=== PATIENT | male | born 1935 | race Caucasian/White ===

== ENCOUNTER → 2017-10-07 14:58 | Outpatient (CLI) | payer MEDICARE, OTHER, SELFPAY ==
[2017-10-07 18:11] LABS: Anion Gap 9 (5-15); BUN 30 mg/dL (7-18); BUN/Creat Ratio 19.2 RATIO (10-20); Calcium,Total 9.5 mg/dL (8.5-10.1); Chloride 107 mmol/L (98-107); Creatinine, Serum 1.56 mg/dL (0.70-1.30); EST Glomerular Filtration Rate 46 mL/min (>60); Est Glom Filt Rate - Afr Amer 55 mL/min (>60); Free T3 2.2 pg/mL (2.18-3.98); Glucose 89 mg/dL (70-110); Potassium 4.1 mmol/L (3.5-5.1); Sodium Level 140 mmol/L (136-145); T4 Total, Thyroxin 7.4 ug/dL (4.5-12.1); Thyroid Stim Hormone (TSH) 1.52 uIU/mL (0.358-3.74)
== END ==
PROVIDERS: Family Provider Family Medicine; PCP Family Medicine; Visit Provider Family Medicine
DX: I10 Essential (primary) hypertension (principal); E03.9 Hypothyroidism, unspecified
CPT/HCPCS: 36415; 80048; 84436; 84443; 84481

== ENCOUNTER → 2017-11-21 12:14 | Outpatient (CLI) | payer MEDICARE, OTHER, SELFPAY ==
[2017-11-21 14:39] LABS: AST(SGOT) 27 U/L (15-37); Alanine Aminotransfer ALT/SGPT 34 U/L (16-61); Albumin, Serum 3.5 g/dL (3.2-5.0); Alkaline Phosphatase 69 U/L (45-117); Bilirubin, Direct 0.14 mg/dL (0.00-0.30); Cholesterol 126 mg/dL (200); Globulin 3.3 g/dL (2.2-4.2); High Density Lipoprotein 48 mg/dL; Protein, Total 6.8 g/dL (6.4-8.2); Triglycerides 77 mg/dL; Very Low Density Lipoprotein 15 mg/dL (5-40)
== END ==
PROVIDERS: Family Provider Family Medicine; PCP Family Medicine; Visit Provider Internal Medicine Cardiovascular Disease
DX: E78.00 Pure hypercholesterolemia, unspecified (principal)
CPT/HCPCS: 36415; 80061; 80076

== ENCOUNTER → 2018-02-07 10:43 | Outpatient (CLI) | payer MEDICARE, OTHER, SELFPAY ==
[2018-02-07 13:07] LABS: Anion Gap 7 (5-15); BUN 35 mg/dL (7-18); BUN/Creat Ratio 18.8 RATIO (10-20); Calcium,Total 9.7 mg/dL (8.5-10.1); Chloride 108 mmol/L (98-107); Creatinine, Serum 1.86 mg/dL (0.70-1.30); EST Glomerular Filtration Rate 37 mL/min (>60); Est Glom Filt Rate - Afr Amer 45 mL/min (>60); Glucose 131 mg/dL (74-106); Potassium 4.2 mmol/L (3.5-5.1); Sodium Level 141 mmol/L (136-145)
== END ==
PROVIDERS: Family Provider Family Medicine; PCP Family Medicine; Visit Provider Family Medicine
DX: I10 Essential (primary) hypertension (principal); R97.20 Elevated prostate specific antigen [PSA]
CPT/HCPCS: 36415; 80048; 84153

== ENCOUNTER → 2018-02-20 17:26 | Outpatient (CLI) | payer MEDICARE, OTHER, SELFPAY | PROVIDERS: Visit Provider Podiatrist | DX: L97.429 Non-pressure chronic ulcer of left heel and midfoot with unspecified severity (principal) | CPT/HCPCS: 87070; 87205 ==

== ENCOUNTER → 2018-05-27 08:22 | Outpatient (CLI) | payer MEDICARE, OTHER, SELFPAY ==
[2018-05-27 12:24] LABS: AST(SGOT) 29 U/L (15-37); Alanine Aminotransfer ALT/SGPT 32 U/L (16-61); Albumin, Serum 3.4 g/dL (3.2-5.0); Alkaline Phosphatase 68 U/L (45-117); Bilirubin, Direct 0.24 mg/dL (0.00-0.30); Cholesterol 128 mg/dL (200); Globulin 3.2 g/dL (2.2-4.2); High Density Lipoprotein 47 mg/dL; Protein, Total 6.6 g/dL (6.4-8.2); Triglycerides 69 mg/dL; Very Low Density Lipoprotein 14 mg/dL (5-40)
== END ==
PROVIDERS: Family Provider Family Medicine; PCP Family Medicine; Visit Provider Internal Medicine Cardiovascular Disease
DX: E78.5 Hyperlipidemia, unspecified (principal); Z79.899 Other long term (current) drug therapy
CPT/HCPCS: 36415; 80061; 80076

== ENCOUNTER → 2018-06-02 17:58 | Outpatient (CLI) | payer MEDICARE, OTHER, SELFPAY ==
--- NOTE | 2018-06-02 08:00 | PROSBIL_PTH ---
PATIENT: BENJAMIN MAS Jr. LOC: [facility] U#:[id number] AGE/SX: 89/M ROOM: RE06/02/[address]: Dr. Antwan Carlson MD : 1935 BED: DIS: SPEC #: [id number] RECD: 06/02/18 16:31 STATUS: MAURICIO MICHELLE #: [id number] MAGDA: 06/02/18 08:[address]: Antwan Carlson DEPT: SURGICAL PATHOLOGY RECD BY: Antonio Washington ENTERED: 06/04/18 09:15 SP TYPE: PROST BX KELLY DR: Dr. Ethan Tubbs MD Tissues: A - PROSTATE RIGHT B - PROSTATE RIGHT C - PROSTATE RIGHT D - PROSTATE LEFT E - PROSTATE LEFT F - PROSTATE LEFT Procedures: PROSTATE BX HEADER OPERATION: Prostate biopsy PRE-OP DIAGNOSIS: Elevated PSA TISSUE SUBMITTED: A - Right apex, B - Right mid, C - Right base, D - Left apex, E - Left mid, F - Left base MICROSCOPIC DIAGNOSIS A. 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 Right prostate, mid, core biopsy: Benign prostatic tissue. C. Right prostate, base, core biopsy: Focal high-grade prostatic intraepithelial neoplasia (HGPIN). D. Left prostate, apex, core biopsy: Adenocarcinoma: Hartly grade: 7 (3+4) Cores involved: 1 out of 1 Tissue involved: 65% Greatest tumor length: 7.5 mm Perineural invasion: Focal perineural invasion E. Left prostate, mid, core biopsy: Adenocarcinoma: Christa grade: 7 (3+4) Cores involved: 1 out of 1 Tissue involved: 90% Greatest tumor length: 9 mm See comment. F. Left prostate, base, core biopsy: Adenocarcinoma: Hartly grade: 7 (3+4) Cores involved: 1 out of 1 Tissue involved: 85% Greatest tumor length: 11 mm See comment. AM:june 06/05/18 COMMENT E & F. 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 Case has been reviewed in consultation with Dr. Valles who concurs with the above diagnosis. IDC:[id number] MICROSCOPIC DESCRIPTION Slides are reviewed. GROSS DESCRIPTION A - Received is one container designated prostate, right apex. The specimen consists of one elongated fragment of light albert-white soft tissue measuring 1 cm in length and 0.1 cm in diameter. The specimen is totally submitted in one cassette. B - Received is one container designated prostate, right mid. The specimen consists of one elongated fragment of light albert-white soft tissue measuring 0.5 cm in length and 0.1 cm in diameter. The specimen is totally submitted in one cassette. C - Received is one container designated prostate, right base. The specimen consists of one elongated fragment of light albert-white soft tissue measuring 1.2 cm in length and 0.1 cm in diameter. The specimen is totally submitted in one cassette. D - Received is one container designated prostate, left apex. The specimen consists of one elongated fragment of light albert-white soft tissue measuring 1.5 cm in length and 0.1 cm in diameter. The specimen is totally submitted in one cassette. E - Received is one container designated prostate, left mid. The specimen consists of one elongated fragment of light albert-white soft tissue measuring 1.5 cm in length and 0.1 cm in diameter. The specimen is totally submitted in one cassette. F - Received is one container designated prostate, left base. The specimen consists of one elongated fragment of light albert-white soft tissue measuring 1.5 cm in length and 0.1 cm in diameter. The specimen is totally submitted in one cassette. / SJ:rg 06/04/18 TC:0 CPT: G0146
== END ==
PROVIDERS: Family Provider Family Medicine; PCP Family Medicine; Referring Provider Urology; Visit Provider Urology
DX: R97.20 Elevated prostate specific antigen [PSA] (principal)
CPT/HCPCS: 88305; G0416

== ENCOUNTER → 2018-06-11 09:15 | Outpatient (CLI) | payer MEDICARE, OTHER, SELFPAY ==
--- NOTE | 2018-06-11 09:18 | NM_ITS ---
CLINICAL: 83-year-old male with reported history of carcinoma of the prostate. WHOLE BODY 99m Tc MDP RADIONUCLIDE BONE SCINTIGRAPHY COMPARISON: None available FINDINGS: Following the intravenous administration of 25.8 mCi of 99m Tc MDP, whole body bone images reveal: 1. Increased radiopharmaceutical concentration is identified in the acromioclavicular, sternoclavicular and glenohumeral compartments of both shoulders, bilateral elbow and wrist articulations, right-left knees, ankles bilaterally, right-left forefoot, the mid to lower cervical spine posteriorly on the left and right, the second-10th thoracic vertebra posteriorly on the left and right, first-fifth lumbar vertebra heterogeneously. 2. The remaining skeletal structures are scintigraphically unremarkable with normal-appearing renal images and urinary bladder activity identified. Asymmetric increased uptake is noted in the left maxillary most consistent with periodontal disease and/or periostitis. NM/Bone Scan Whole Body IMPRESSION: 1. The increase in radiopharmaceutical concentration identified in the cervical, thoracic and lumbar spine, bilateral shoulder, elbow and wrist articulations, right-left knees, the ankles bilaterally, the right-left forefoot is most consistent with degenerative arthritis. Plain film radiography correlation may be of benefit in the thoracic and lumbar spine. 2. There is no definitive typical scintigraphic evidence of diffuse axial skeletal metastatic disease on the current examination. Electronically Signed: Maldonado Tilley DO at 23:32 EDT Tel , Service support ,
== END ==
PROVIDERS: Family Provider Family Medicine; PCP Family Medicine; Referring Provider Urology; Visit Provider Urology
DX: C61 Malignant neoplasm of prostate (principal)
CPT/HCPCS: 78306

== ENCOUNTER → 2018-07-18 07:47 | Outpatient (CLI) | payer MEDICARE, OTHER, SELFPAY ==
--- NOTE | 2018-07-18 07:51 | VDLE_ITS ---
Reason For Study: LEG SWELLING RIGHT LEFT CFV is compressible, spontaneous, phasic, CFV is compressible, spontaneous, phasic, competent and demonstrates normal competent, and demonstrates normal augmentation. augmentation. FV is compressible, spontaneous, phasic, FV is compressible, spontaneous, phasic, competent and demonstrates normal competent and demonstrates normal augmentation. augmentation. POP V is compressible, spontaneous, phasic, POP V is compressible, spontaneous, phasic, competent and demonstrates normal competent and demonstrates normal augmentation. augmentation. T/P Trunk is compressible. T/P Trunk is compressible. PTV is compressible. PTV is compressible. RT PerV is compressible. LT PerV is compressible. SFJ is competent SFJ is INCOMPETENT for greater than .5 sec GSV is competent above knee GSV is inCOMPETENT with reflux greater GSV is INCOMPETENT below knee with reflux than .5 sec and diameter of .43 x .42 cm greater than .5 sec and diameter of .31x .34 SSV is competent. cm SSV is competent Thrombus filled varicose vein noted rt medial mid calf. Procedure Exam performed in department. A preliminary report was called and/or faxed to Dr. Mcmillan. <> Interpretation Summary Deep veins of the lower extremities are bilaterally patent and compressible segmentally. There is no evidence of deep vein thrombosis on either side. Valvular competence appears intact within the proximal deep venous systems bilaterally. The greater saphenous veins appear bilaterally patent and compressible segmentally. The right sapheno-femoral junction is competent . The left sapheno-femoral junction is incompetent . The right greater saphenous vein appears competent above the knee. The right greater saphenous vein appears incompetent below the knee. The left greater saphenous vein appears segmentally incompetent. Small saphenous veins are patent and competent bilaterally. Acute superficial thrombophlebitis is noted involving superficial varicosities in the right mid-medial calf. Ordering Physician: José Miguel Mcmillan Referring Physician: Ethan Tubbs Performed By: Citlaly Corbin RVT
== END ==
PROVIDERS: Family Provider Family Medicine; PCP Family Medicine; Referring Provider Podiatrist; Visit Provider Podiatrist
DX: M25.472 Effusion, left ankle (principal); I87.2 Venous insufficiency (chronic) (peripheral); M79.89 Other specified soft tissue disorders
CPT/HCPCS: 93970

== ENCOUNTER → 2018-08-11 10:33 | Outpatient (CLI) | payer MEDICARE, OTHER, SELFPAY ==
[2018-08-11 12:47] LABS: Anion Gap 8 (5-15); BUN 35 mg/dL (7-18); Calcium,Total 9.9 mg/dL (8.5-10.1); Chloride 106 mmol/L (98-107); Creatinine, Serum 1.84 mg/dL (0.70-1.30); EST Glomerular Filtration Rate 38 mL/min (>60); Est Glom Filt Rate - Afr Amer 45 mL/min (>60); Glucose 73 mg/dL (74-106); Potassium 4.3 mmol/L (3.5-5.1); Sodium Level 140 mmol/L (136-145); Thyroid Stim Hormone (TSH) 2.29 uIU/mL (0.358-3.74)
--- OUTSIDE RECORDS SUMMARY | 2018-10-04 15:44 | XMS RPT_ITS ---
:1935 Author Organization OHIP Support Name Relationship Address Phone R Unavailable Unavailable Unavailable CHACE, EDUARDO Unavailable [address] + [place] [address] R Unavailable Unavailable Unavailable CHACE, EDUARDO Unavailable [address] + [place] [address] R Unavailable Unavailable Unavailable CHACE, EDUARDO Unavailable [address] + [place] [address] R Unavailable Unavailable Unavailable CHACE, EDUARDO Unavailable [address] + [place] [address] R Unavailable Unavailable Unavailable CHACE, EDUARDO Unavailable [address] + [place] [address] R Unavailable Unavailable Unavailable CHACE, EDUARDO Unavailable [address] + [place] [address] R Unavailable Unavailable Unavailable CHACE, EDUARDO Unavailable [address] + [place] [address] R Unavailable Unavailable Unavailable CHACE, EDUARDO Unavailable [address] + [place] [address] R Unavailable Unavailable Unavailable CHACE, EDUARDO Unavailable [address] + [place] [address] R Unavailable Unavailable Unavailable CHACE, EDUARDO Unavailable [address] + [place] [address] R Unavailable Unavailable Unavailable CHACE, EDUARDO Unavailable [address] + [place] [address] R Unavailable Unavailable Unavailable CHACE, EDUARDO Unavailable [address] + [place] [address] R Unavailable Unavailable Unavailable CHACE, EDUARDO Unavailable [address] + [place] [address] R Unavailable Unavailable Unavailable GEORGI MASNA Unavailable [address] + [place] [address] R Unavailable Unavailable Unavailable CHACE EDUARDO Unavailable [address] + [place] [address] Care Team Providers Name Role Phone MICAH JORI (PA-C) Referring Unavailable NILAM HEARD (LOCUM TENENS PSYCHIATRIST) Referring Unavailable AYAAN GARCIA Attending Unavailable Tubbs, Ethan Attending Unavailable Tubbs, Ethan Referring Unavailable Tubbs, Ethan Primary Care Unavailable Jake, Faizan Attending Unavailable Tubbs, Ethan Referring Unavailable Tubbs, Ethan Primary Care Unavailable JohnTasha martinez Attending Unavailable Tubbs, Ethan Referring Unavailable Tubbs, Ethan Primary Care Unavailable Jake, Faizan Attending Unavailable Tubbs, Ethan Primary Care Unavailable JohnTasha martinez Attending Unavailable Tubbs, Ethan Referring Unavailable Tubbs, Ethan Attending Unavailable Tubbs, Ethan Primary Care Unavailable José Miguel Mcmillan Attending Unavailable Tubbs, Ethan Primary Care Unavailable WunnJosé Miguel phipps Referring Unavailable JohnTasha Attending Unavailable Tubbs, Ethan Referring Unavailable Benjmain Cabrera Attending Unavailable Tubbs, Ethan Referring Unavailable JohnTasha Attending Unavailable Tubbs, Ethan Referring Unavailable Jake, Faizan Attending Unavailable Jake, Faizan Referring Unavailable Tubbs, Ethan Primary Care Unavailable Robyn, Antwan Haile Attending Unavailable Tubbs, Ethan Primary Care Unavailable Robyn, Antwan Haile Referring Unavailable Robyn, Antwan Haile Attending Unavailable Robyn, Antwan Haile Referring Unavailable Tubbs, Ethan Primary Care Unavailable José Miguel Mcmillan Attending Unavailable WunningJosé Miguel Referring Unavailable Tubbs, Ethan Primary Care Unavailable Tubbs, Ethan Attending Unavailable Tubbs, Ethan Primary Care Unavailable PROBLEMS PROBLEMS DATE TYPE CONDITION / CODE ATTENDING STATUS SOURCE Unknown E78.5 - Hyperlipidemia, Jake, Faizan Active [place] [facility] unspecified / Community E78.5(ICD-10) Hospital Repository Unknown Z79.899 - Other fdc Jake, Langford Active [place] [facility] (current) drug therapy / Community Z79.899(ICD-10) Hospital Repository Unknown I10 - Essential (primary) TubbsEthan kruger Active [place] 8 hypertension / Community I10(ICD-10) Hospital Repository Unknown R97.20 - Elevated Ethan Tubbs Active [place] 8 prostate specific antigen Community [PSA] / R97.20(ICD-10) Hospital Repository Unknown E78.00 - Pure Jake, Faizan Active [place] 8 hypercholesterolemia, Community unspecified / Hospital E78.00(ICD-10) Repository Unknown E78.0 - Pure Jake, Langford Active [place] 8 hypercholesterolemia / Community E78.0(ICD-10) Hospital Repository Unknown I48.0 - Paroxysmal atrial Jake, Langford Active [place] 8 fibrillation / Community I48.0(ICD-10) Hospital Repository Unknown Z95.0 - Presence of Jake, Faizan Active [place] 8 cardiac pacemaker / Community Z95.0(ICD-10) Hospital Repository Active Pain in right knee / NA Active [place] [address] M25.561(ICD-10) [facility] [place] Repository Active Unknown / UNK(Unknown) NA Active [address] Repository PROCEDURES PROCEDURES No Procedure Records FoundRESULTS RESULTS BASIC METABOLIC Collected: 08/11/2018 Status: F Source: [place] PROFILE (BMP) 10:[address] [facility] REPOSITORY TYPE CODE TESTS RESULT OUT OF RANGE REFERENCE UNITS LAB L501.0100 74-106 mg/dL Low GLU 73 Result Comment: Please note revised GLUCOSE reference range effective 2017. LAB L501.1000 7-18 mg/dL High BUN 35 LAB L501.1100 0.70-1.30 mg/dL High CREAT,SERUM 1.84 Result Comment: The validity of the calculated GFR AND GFRAA in patients over 70 years has not been determined. Clinical correlation is essential. LAB L501.1110 >60 mL/min Low EST GFR 38 Result Comment: Non- GFR Calc LAB L501.1115 >60 mL/min Low EST GFR - AA 45 Result Comment: GFR Calc LAB L501.1300 10-20 RATIO Normal BUN/CRE 19.0 LAB L501.2200 8.5-10.1 mg/dL CA Normal 9.9 LAB L501.5300 136-145 mmol/L NA Normal 140 LAB L501.5600 3.5-5.1 mmol/L K Normal 4.3 LAB L501.5900 98-107 mmol/L CL Normal 106 LAB L501.6100 21.0-32.0 mmol/L Normal CO2 26.0 LAB L501.6200 5-15 Normal GAP 8 Performed By: #### L500.2500, L501.9520 #### [facility] [address] [place], [address] THYROID STIM HORMONE Collected: 08/11/2018 Status: F Source: [place] (TSH) 10:[address] [facility] REPOSITORY TYPE CODE TESTS RESULT OUT OF RANGE REFERENCE UNITS LAB L501.9520 0.358-3.74 uIU/mL Normal TSH 2.29 Performed By: #### L500.2500, L501.9520 #### [facility] [address] [place], [address] VENOUS DUPLEX LOWER Observed: 07/24/2018 Status: F Source: [place] EXTREMITY 2:[address] [facility] REPOSITORY [facility] Cardiovascular Services [address] [place] [address] Venous Duplex US - Samm Extrem 07/18/18 0755 MR#: [id number] Acct: [id number] Name: BENJAMIN MAS Rep #: [id number] : 1935 83 From: Philip Rubio MD Attending Dr: José Miguel Mcmillan DPM Status: REG CLI Ordering Dr: José Miguel Mcmillan DPM Date: 07/18/18 Location: [facility] Sex: M C Admitted: Reason For Study: LEG SWELLING RIGHT LEFT CFV is compressible, spontaneous, phasic, CFV is compressible, spontaneous, phasic, competent and demonstrates normal competent, and demonstrates normal augmentation. augmentation. FV is compressible, spontaneous, phasic, FV is compressible, spontaneous, phasic, competent and demonstrates normal competent and demonstrates normal augmentation. augmentation. POP V is compressible, spontaneous, phasic, POP V is compressible, spontaneous, phasic, competent and demonstrates normal competent and demonstrates normal augmentation. augmentation. T/P Trunk is compressible. T/P Trunk is compressible. PTV is compressible. PTV is compressible. RT PerV is compressible. LT PerV is compressible. SFJ is competent SFJ is INCOMPETENT for greater than .5 sec GSV is competent above knee GSV is inCOMPETENT with reflux greater GSV is INCOMPETENT below knee with reflux than .5 sec and diameter of .43 x .42 cm greater than .5 sec and diameter of .31x .34 SSV is competent. cm SSV is competent Thrombus filled varicose vein noted rt medial mid calf. Procedure Exam performed in department. A preliminary report was called and/or faxed to Dr. Mcmillan. <> Interpretation Summary Deep veins of the lower extremities are bilaterally patent and compressible segmentally. There is no evidence of deep vein thrombosis on either side. Valvular competence appears intact within the proximal deep venous systems bilaterally. The greater saphenous veins appear bilaterally patent and compressible segmentally. The right sapheno-femoral junction is competent . The left sapheno-femoral junction is incompetent . The right greater saphenous vein appears competent above the knee. The right greater saphenous vein appears incompetent below the knee. The left greater saphenous vein appears segmentally incompetent. Small saphenous veins are patent and competent bilaterally. Acute superficial thrombophlebitis is noted involving superficial varicosities in the right mid-medial calf. Ordering Physician: José Miguel Mcmillan Referring Physician: Ethan Tubbs Performed By: Citlaly Corbin RVT 07/24/18 1057 Date Philip Rubio MD CC: José Miguel Mcmillan DPM; Ethan Tubbs MD Date Dictated: 07/18/18 0755 Date Transcribed: 07/24/18 1057 Centerless Grinder Operator: Signed BONE SCAN WHOLE Observed: 06/11/2018 Status: F Source: [place] BODY 9:[address] [facility] REPOSITORY [facility] [place] [address] Bone Scan Whole Body MR#: [id number] Acct: [id number] Name: BENJAMIN MAS Rep #: [id number] : 1935 M 83 From: Maldonado Tilley DO PCP: Ethan Tubbs MD Status: REG CLI Study: Bone Scan Whole Body Date of Exam: 06/11/18 Exam# [id number] Ordering Dr: Antwan Carlson MD CLINICAL: 83-year-old male with reported history of carcinoma of the prostate. WHOLE BODY 99m Tc MDP RADIONUCLIDE BONE SCINTIGRAPHY COMPARISON: None available FINDINGS: Following the intravenous administration of 25.8 mCi of 99m Tc MDP, whole body bone images reveal: 1. Increased radiopharmaceutical concentration is identified in the acromioclavicular, sternoclavicular and glenohumeral compartments of both shoulders, bilateral elbow and wrist articulations, right- left knees, ankles bilaterally, right-left forefoot, the mid to lower cervical spine posteriorly on the left and right, the second-10th thoracic vertebra posteriorly on the left and right, first-fifth lumbar vertebra heterogeneously. 2. The remaining skeletal structures are scintigraphically unremarkable with normal-appearing renal images and urinary bladder activity identified. Asymmetric increased uptake is noted in the left maxillary most consistent with periodontal disease and/or periostitis. NM/Bone Scan Whole Body IMPRESSION: 1. The increase in radiopharmaceutical concentration identified in the cervical, thoracic and lumbar spine, bilateral shoulder, elbow and wrist articulations, right-left knees, the ankles bilaterally, the right-left forefoot is most consistent with degenerative arthritis. Plain film radiography correlation may be of benefit in the thoracic and lumbar spine. 2. There is no definitive typical scintigraphic evidence of diffuse axial skeletal metastatic disease on the current examination. Electronically Signed: Maldonado Tilley DO at 23:32 EDT Tel , Service support , CC: Antwan Carlson MD; Ethan Tubbs MD Centerless Grinder Operator: Signed PROSTATE BIOPSY Observed: 06/02/2018 Status: F Source: [place] BILATERAL 8:[address] [facility] REPOSITORY Patient: BENJAMIN MAS : 1935 (83/M) Acct Num: [id number] Phys: Robyn LOPEZ,Antwan Haile Unit Num: [id number] Loc: LABSPEC Specimen: [id number] Received: 06/02/18 - 1630 Spec Type: PROST BX TISSUES 1 TISSUES: A. PROSTATE RIGHT - APEX B. PROSTATE RIGHT - MID C. PROSTATE RIGHT - BASE D. PROSTATE LEFT - APEX E. PROSTATE LEFT - MID F. PROSTATE LEFT - BASE COMMENT E AND F. 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 Case has been reviewed in consultation with Dr. Valles who concurs with the above diagnosis. IDC:TRENT GROSS DESCRIPTION A - Received is one container designated prostate, right apex. The specimen consists of one elongated fragment of light albert-white soft tissue measuring 1 cm in length and 0.1 cm in diameter. The specimen is totally submitted in one cassette. B - Received is one container designated prostate, right mid. The specimen consists of one elongated fragment of light albert-white soft tissue measuring 0.5 cm in length and 0.1 cm in diameter. The specimen is totally submitted in one cassette. C - Received is one container designated prostate, right base. The specimen consists of one elongated fragment of light albert-white soft tissue measuring 1.2 cm in length and 0.1 cm in diameter. The specimen is totally submitted in one cassette. D - Received is one container designated prostate, left apex. The specimen consists of one elongated fragment of light albert-white soft tissue measuring 1.5 cm in length and 0.1 cm in diameter. The specimen is totally submitted in one cassette. E - Received is one container designated prostate, left mid. The specimen consists of one elongated fragment of light albert-white soft tissue measuring 1.5 cm in length and 0.1 cm in diameter. The specimen is totally submitted in one cassette. F - Received is one container designated prostate, left base. The specimen consists of one elongated fragment of light albert-white soft tissue measuring 1.5 cm in length and 0.1 cm in diameter. The specimen is totally submitted in one cassette. / TRENT:june 06/04/18 TC:0 CPT: G0146 HEADER OPERATION: Prostate biopsy PRE-OP DIAGNOSIS: Elevated PSA TISSUE SUBMITTED: A - Right apex, B - Right mid, C - Right base, D - Left apex , E - Left mid, F - Left base MICROSCOPIC DESCRIPTION Slides are reviewed. MICROSCOPIC DIAGNOSIS A. Right prostate, apex, core biopsy: Adenocarcinoma: [place] grade: 6 (3+3) Cores involved: 1 out of 2 Tissue involved: 35% Greatest tumor length: 2.2 mm B. Right prostate, mid, core biopsy: Benign prostatic tissue. C. Right prostate, base, core biopsy: Focal high-grade prostatic intraepithelial neoplasia (HGPIN). D. Left prostate, apex, core biopsy: Adenocarcinoma: [place] grade: 7 (3+4) Cores involved: 1 out of 1 Tissue involved: 65% Greatest tumor length: 7.5 mm Perineural invasion: Focal perineural invasion E. Left prostate, mid, core biopsy: Adenocarcinoma: [place] grade: 7 (3+4) Cores involved: 1 out of 1 Tissue involved: 90% Greatest tumor length: 9 mm See comment. F. Left prostate, base, core biopsy: Adenocarcinoma: [place] grade: 7 (3+4) Cores involved: 1 out of 1 Tissue involved: 85% Greatest tumor length: 11 mm See comment. AM: 06/05/18 PSA RESULTS 1 Date Time Test Result Flag (u) Normal Range 06/27/16 0816 PSA,TOT SCREEN 14.50 H 0.00-4.00 ng/mL 1 This test was performed using the TPSA assay method for the [employer] chemistry system. Values obtained with different assay methods cannot be used interchangably. When changing PSA assays in the course of monitoring a patient, additional sequential testing should be carried out to confirm baseline values. 1 Date Time Test Result Flag (u) Normal Range 02/07/18 1045 PSA, DIAGNOSTIC 21.30 H 0.0-4.0 ng/mL 1 This test was performed using the TPSA assay method for the [employer] chemistry system. Values obtained with different assay methods cannot be used interchangably. When changing PSA assays in the course of monitoring a patient, additional sequential testing should be carried out to confirm baseline values. Signed Hosea Benjamin 06/05/18 <signature on file> Performed By: #### PPROSBIL #### [facility] [address] [place], [address] PACEMAKER CHECK Observed: 05/29/2018 Status: F Source: [place] 5:[address] [facility] REPOSITORY [facility] [address] [place] [address] Pacemaker Check Date of Service: 05/26/18 1550 MR#: [id number] Acct: [id number] Name: BENJAMIN MAS J Rep #: [id number] : 1935 From: Tasha Lopez Age/Sex: 83/M Location: [facility] Status: Signed Billing Codes PM Device Codes: PM Dev Prog Eval, Dual 05/26/18 1553 <Electronically signed by Tasha Lopez > Date Tasha Lopez 05/29/18 1709<Electronically signed by Faizan Joseph MD> Cosign Signature: Date (if applicable) Faizan Joseph MD CC: CARDIOLOGY VISIT Observed: 05/29/2018 Status: F Source: [place] REPORT 5:[address] [facility] REPOSITORY [facility] [address] [place] [address] OFFICE VISIT Date of Service: 05/26/18 MR#: [id number] Acct: [id number] Name: BENJAMIN MAS J Rep #: [id number] : 1935 Provider: DENNISE Cabrera Age/Sex: 83/M Location: [facility] Status: Signed HPI HPI Details: BENJAMIN MAS, is a 83 M who presents to the office today for a cardiovascular outpatient follow-up. He has a history of chronic persistent atrial fibrillation, status post permanent pacemaker placement, hyperlipidemia, and previous history of subdural hematoma. Pt. denies chest, arm, jaw, or neck discomfort. His exercise tolerance is stable. Pt. denies symptoms of CHF, palpitations, lightheadedness, dizziness, near syncope, or syncopal episodes. Pt. denies edema or claudication issues. Pt. denies orthopnea, PND, fever, chills, blood in urine, blood in stool, myalgia, or unexplainable fatigue. Intake Vital Signs05/26/18 Height 5 ft 11 in 05/26/18 Weight: 162 lb 05/26/18 Body Mass Index (BMI) 22.6 05/26/18 Blood Pressure 124/78 05/26/18 Respiratory Rate 18 05/26/18 Pulse Rate 74 Intake Visit Reasons: 6 M FU Allergies No Known Allergies Allergy (Verified 05/26/18 10:28) Medications Allopurinol [Zyloprim] 300 mg PO DAILY 07/07/13 [History Confirmed 05/26/18] Levothyroxine [Synthroid] 50 mcg PO DAILY 08/02/13 [History Confirmed 05/26/18] Simvastatin [Zocor] 40 mg PO QHS 08/02/13 [History Confirmed 05/26/18] Aspirin [Aspirin, Baby] 81 mg PO DAILY@0800 02/24/14 [History Confirmed 05/26/18] Hyoscyamine [Levsinex] 1 mg PO DAILY 02/24/14 [History Confirmed 05/26/18] Metoprolol Tartrate [Lopressor (Beta Darshan)] 25 mg PO DAILY 09/25/15 [History Confirmed 05/26/18] furosemide 20 mg tablet 20 mg PO DAILY #90 tab 11/13/17 [Rx Confirmed 05/26/18] budesonide DR - ER 3 mg capsule,delayed,extended release 3 mg PO DAILY ea 11/20/17 [History Confirmed 05/26/18] [facility] Medical History History of pulmonary embolism (Chronic) History of CVA (cerebrovascular accident) (Chronic) History of complete heart block (Chronic) History of DVT (deep vein thrombosis) (Chronic) Hyperlipidemia (Chronic) Hypertension (Chronic) Atrial flutter with controlled response (Chronic) Paroxysmal ventricular tachycardia (Chronic) Nonrheumatic aortic (valve) stenosis with insufficiency (Chronic) Paroxysmal atrial fibrillation (Chronic) History of subdural hematoma (Chronic) Pulmonary hypertension (Chronic) Surgical History Cardiac pacemaker in situ (Chronic) Family History Mother , Age 51 from Sarcoidosis Sarcoidosis Father , age 79 CVA, CHF CVA (cerebral vascular accident) Congestive heart failure Sister , respiratory failure Respiratory failure Social History Smoking Status: Former smoker ROS Const Const: Negative for fatigue, weakness, difficulty sleeping, frequent falls, excessive sweating or headache(s) Eyes Eyes: Negative for loss of peripheral vision, transient loss of vision, blurry vision, tunnel vision or double vision ENT ENT: Negative for headache(s), dizziness, Nosebleed/epistaxis or balance problems Cardio Chest Pain: No Palpitations: No Edema: Bilateral (trace BLE ankle edema) Muscle aches with walking: None Resp Respiratory: Negative for SOB with activity, SOB at rest, SOB orthopnea\SOB lying down, paroxysmal nocturnal dyspnea or Cough GI GI: Negative nausea, heartburn, black,tarry stools or vomiting : Negative for hematuria Musc Musc: Negative for balance problems, muscle aches/ myalgia, muscle weakness or joint pain Skin Skin: Negative non-healing lesions, unusual bruising or rash Neuro Neuro: Negative for weakness, frequent falls, headache(s), blurry vision, double vision, dizziness, lightheadedness, orthostatic symptoms, near syncope, syncope or lack of coordination [place] Hematologic/Lymphatic: Negative for easy bruising or easy bleeding Endo Endo: Negative for fatigue, excessive sweating or increased thirst/drinking Psych Psych: Negative for anxiety or depression Allergy Allergy/Immunology: Negative for hives, Negative for rash Cardiology Exam Const Appearance: cooperative, healthy appearing, comfortable and no acute distress Nutritional Appearance: average body habitus and well nourished Orientation: alert, awake and oriented x3 Head Head: normal to inspection Ears: hearing grossly normal bilaterally Nose: external nose normal Face and Sinus: face symmetric Mouth: oral mucosae normal Eyes General: appearance normal, both eyes and all related structures Eyelids: eyelids normal EOM: EOM intact bilaterally Neck Neck: no JVD and normal visual inspection Carotids: normal carotid upstroke Chest Chest inspection: normal inspection of the chest and normal respiratory effort; negative cough Auscultation: Bilateral: Clear to Auscultation Cardio Rate: regular rate Rhythm: regular rhythm Heart sounds: S1 normal, S2 normal and normal, physiologic split S2; negative rub, gallop or murmur GI GI: normal to inspection Neuro General: alert, awake, oriented x3 and CN's II-XI intact bilaterally Skin Skin: no rashes or lesions noted Extremities Pulses: Normal: Right Posterior Tibial Pulse, Left Posterior Tibial Pulse, Right Radial Pulse, Left Radial Pulse Lower Extremity Edema: None: Bilateral Psych Psychological: normal affect Supplemental Info Echocardiogram from June 2016 showed an ejection fraction of 60%, stage II diastolic dysfunction, severely enlarged left atrium, severely dilated right ventricle, severely enlarged right atrium, trivial mitral valve insufficiency, RVSP of 42 mmHg, mild pulmonary hypertension, mild aortic valve insufficiency, and when compared to previous echocardiogram on 08/03/2013, no appreciable changes were noted except RVSP has increased from 28-42 mm Hg. #2018 showed AP% at 29%, OPERATIONS SECTION MANAGER% at 97%, battery longevity of 5 years, 3 MS episodes comprising of <1% total time of atrial flutter, no VT episodes, and no changes made. Stress test from June 2016 showed peak EKG considered indeterminate secondary to underlying electronic ventricular pacemaker and nuclear images negative for stress-induced myocardial ischemia and showed an ejection fraction of 53%. Assessment AND Plan 1. Paroxysmal atrial fibrillation I48.0 GIANNI Blackwood His pacemaker check from May 2018 showed 3 MS episodes comprising of less than 1% of total time. His heart rate remains well controlled. He is not on oral anticoagulation due to history of subdural hematoma. He will continue low-dose beta- darshan and we will continue to monitor. 2. Essential hypertension I10 GINANI Blackwood Patient's blood pressure is well-controlled today in the office. We will continue to monitor this. We will not make any medication regimen changes. 3. Pure hypercholesterolemia E78.00 GIANNI Blackwood His lipid panel in November 2018 showed cholesterol: 126, HDL: 48, LDL: 63, and triglycerides: 77. He will repeat both liver and lipid panel at his earliest convenience. In the interim, he will continue with current statin medication. 4. Cardiac pacemaker in situ Z95.0 04/15/2014 @ [facility] Plan - GIANNI Fuentes Patient's pacemaker/ICD appears to be functioning appropriately. We will continue to monitor this with routine/scheduled follow-ups. Plan Detail Additional Comments - GIANNI Fuentes Discussed the above patient with Dr. Joseph, he agrees with the plan of care. Thank you for allowing us to participate in the patients plan of care, if you have any questions please do not hesitate to call. This note was generated using a voice recognition system and there may be incorrect words, spelling or punctuation that were not noted when reviewing the office note prior to saving. Follow Up 6 Months ([employer] PILOT) Coding Level of Care Code Off vis,est,level 3 Diagnoses Paroxysmal atrial fibrillation I48.0 Essential hypertension I10 Hypertension type: essential hypertension Pure hypercholesterolemia E78.00 Hyperlipidemia type: pure hypercholesterolemia Cardiac pacemaker in situ Z95.0 Coding Level of Care Code Off vis,est,level 3 Diagnoses Paroxysmal atrial fibrillation I48.0 Essential hypertension I10 Hypertension type: essential hypertension Pure hypercholesterolemia E78.00 Hyperlipidemia type: pure hypercholesterolemia Cardiac pacemaker in situ Z95.0 05/26/18 1151 <Electronically signed by Benjamin CAMPC> Date Benjamin CAMPC 05/29/18 1708<Electronically signed by Faizan Joseph MD> Cosigner Signature: Date (if applicable) Faizan Joseph MD CC: Ethan Tubbs MD LIVER PROFILE Collected: 05/27/2018 Status: F Source: [place] 8:[address] [facility] REPOSITORY TYPE CODE TESTS RESULT OUT OF RANGE REFERENCE UNITS LAB L501.1500 6.4-8.2 g/dL Normal T PROT 6.6 LAB L501.1800 3.2-5.0 g/dL Normal ALB 3.4 LAB L501.1950 2.2-4.2 g/dL Normal GLOB 3.2 LAB L501.4100 15-37 U/L Normal AST 29 LAB L501.4305 45-117 U/L Normal ALK P 68 LAB L501.4405 16-61 U/L Normal ALT 32 LAB L501.4600 0.20-1.00 mg/dL Normal T BILI 0.80 LAB L501.4700 0.00-0.30 mg/dL Normal D BILI 0.24 Performed By: #### L500.3400, L500.4100 #### [facility] [address] [place], [address] LIPID PROFILE Collected: 05/27/2018 Status: F Source: [place] 8:[address] [facility] REPOSITORY TYPE CODE TESTS RESULT OUT OF RANGE REFERENCE UNITS LAB L501.4900 200 mg/dL Normal CHOL 128 Result Comment: <200 mg/dL Desirable 200-240 mg/dL Borderline >240 mg/dL High Risk LAB L501.5000 mg/dL Normal TRIG 69 Result Comment: The drugs N-Acetylcysteine and Metamizole may falsely depress this assay. Serum Triglycerides Reference Interval Normal <150 mg/dL Borderline high 150 - 199 mg/dL High 200 - 499 mg/dL Very High > or = 500 mg/dL LAB L501.6400 mg/dL Normal HDL 47 Result Comment: The drugs N-Acetylcysteine and Metamizole may falsely depress this assay. Reference Range HDL <40 mg/dL Low HDL Cholesterol HDL >or= 60 mg/dL High HDL Cholesterol LAB L501.6500 0-130 mg/dL Normal LDL 67 LAB L501.6600 5-40 mg/dL Normal VLDL 14 Performed By: #### L500.3400, L500.4100 #### [facility] [address] [place], [address] PACEMAKER CHECK Observed: 03/04/2018 Status: F Source: [place] 11:[address] [facility] REPOSITORY [facility] [address] [address] [place] [address] Pacemaker Check Date of Service: 02/27/18 1140 MR#: [id number] Acct: [id number] Name: BENJAMIN MAS Rep #: [id number] : 1935 From: Tasha Lopez Age/Sex: 82/M Location: [facility] Status: Signed Comments Summary Comments: Remote Dual Chamber Pacemaker Evaluation: Sees Attached scanned Latitude report. Remote interrogation shows no MS episodes and no VT episodes since last check 11/21/17. Presenting rhythm shows P synchronous paced @ 70 ppm with occasional PVC's. OPERATIONS SECTION MANAGER=97%. Lead impedances, sensing and ventricular auto pace/sense threshold remain stable. Normal remote PPM function. Pt notified remote transmission received and next f/u appt scheduled for in 3 mos. Device Device Date Interviewed: 02/26/18 Follow-up Location: remote Interview Reason: scheduled follow up Lamps Tester And Inspector: Girl Meets Dress Name: Gridcentric Model: [id number] Serial #: [id number] Patient Characteristics AV/Node Indication: Complete heart block Ejection fraction %: 60 to 64 By: Echo Pacemaker Dependent: No Device Characteristics Device: Dual Chamber Type: Pacemaker Remote Follow-Up: Latitude Leads Lead #1 Lamps Tester And Inspector Lead 1: [employer] Model Lead 1: Serial# Lead 1: [id number] Date Implanted Lead 1: 04/15/14 Position Lead 1: RA Lead #2 Lamps Tester And Inspector Lead 2: [employer] Model Lead 2: Serial# Lead 2: [id number] Date Implanted Lead 2: 04/15/14 Position Lead 2: RV Diagnostics Pacing % RA Pacin % RV Pacin Arrhythmias Non-Sust Episodes: 0 Measurements Battery Magnet Rate (bmp): 100 Battery Status: LEWIS Predicted Remaining Longevity (months or years): 5.5 years RA Measurements Signal Amplitude (mV): 2.8 Impedance (Ohms): 346 RV Measurements Signal Amplitude (mV): 25 Impedance (Ohms): 723 Threshold Voltage: 0.8 @ PW(ms): 0.4 Kelby Settings Kelby Settings Pacemaker Mode DDDR Output/Sensing V/PW (ms) 2.0/0.4 auto1.2/0.4 Sensitivity RA RV LV Comments: Billing Codes PM Device Codes: PM Dev Interrogate (Remot Assessment AND Plan Problems 1. Cardiac pacemaker in situ Z95.0 04/15/2014 @ [facility] 2. Atrial flutter with controlled response I48.92 3. Paroxysmal ventricular tachycardia I47.2 4. Paroxysmal atrial fibrillation I48.0 03/02/18 1313 <Electronically signed by Tasha Lopez > Date Tasha Lopez 03/04/18 1118<Electronically signed by Faizan Joseph MD> Cosigner Signature: Date (if applicable) Faizan Joseph MD CC: Observed: 02/20/2018 Status: F Source: [place] CULTURE, WOUND 2:[address] [facility] REPOSITORY Comments: ULCER LEFT HALLUX Gram Stain Gram Stain No organisms seen No cells seen Wound Culture No growth aerobically. Performed By: #### M100.1400 #### [facility] [address] [place] [address]. [place], [address] PROGRESS Observed: 02/17/2018 Status: COMPLETED Source: [place] 10:18 AM [facility] REPOSITORY HNO ID: [id number] Author: Nilam ([facility]) AdamsJorge Service: (none) Author Type: Nurse Practitioner Type: Progress Notes Filed: 02/17/2018 10:38 AM Note Text: Subjective HPI Benjamin Mas is a 82 year old male who presents with cough, congestion, for the past week. He has left ear pain now. He states it is throbbing. He has not had a fever. No known sick contacts. He has taken some cough syrup at home without relief. Review of Systems Constitutional: Negative. Negative for chills and fever. HENT: Positive for congestion, ear pain and tinnitus. Negative for sore throat. Respiratory: Positive for cough, sputum production (heavy phlegm) and shortness of breath (sometimes). Cardiovascular: Negative. Skin: Negative. Negative for rash. BP 130/74 Pulse 80 Temp 36.5 ?C (97.7 ?F) (Tympanic) Resp 16 Wt 77.1 kg (170 lb) SpO2 99% BMI 23.71 kg/m? PAST MEDICAL HISTORY Diagnosis Date - PMH - PAST MEDICAL HISTORY OF hypertension - PMH - PAST MEDICAL HISTORY OF hx pulmonary embolus - PMH - PAST MEDICAL HISTORY OF subdural hematoma PAST SURGICAL HISTORY Procedure Laterality Date - PAST SURGICAL HISTORY OF brain surgery - PAST SURGICAL HISTORY OF wrist ALLERGIES Patient has no known allergies. MEDICATIONS cholecalciferol (VITAMIN D-3) 5,000 unit tab Vitamin D3 5,000 unit tablet allopurinol (ZYLOPRIM) 300 mg tablet allopurinol 300 mg tablet BUDESONIDE ORAL budesonide oral hyoscyamine SR (LEVBID) 0.375 mg 12 hr tablet budesonide, enteric coated (ENTOCORT EC) 3 mg 24 hr capsule levothyroxine (SYNTHROID) 50 mcg tablet metoprolol succinate ER (TOPROL XL) 25 mg 24 hr tablet furosemide (LASIX) 20 mg tablet Take 20 mg by mouth twice daily. aspirin 81 mg chewable tablet Take 81 mg by mouth once daily. benzonatate (TESSALON PERLES) 100 mg capsule Take 1 capsule by mouth three times daily as needed. simvastatin(ZOCOR 20 MG TAB) Take one(1) tablet daily at bedtime. ALLOPURINOL 100 MG TAB Take one(1) tablet daily. predniSONE (DELTASONE) 20 mg tablet 2 pills daily x 3 days, then 1 pill daily x 4 days. benzonatate (TESSALON PERLE) 100 mg capsule Take 1-2 capsules by mouth three times daily as needed. guaiFENesin (MUCINEX) 600 mg 12 hr tablet Take 2 tablets by mouth twice daily. LABETALOL 200 MG TAB Take one(1) tablet daily. loratadine(CLARITIN 10 MG TAB) Take one(1) tablet daily as needed for allergy symptoms. ferrous sulfate(SLOW FE 160 MG (50 MG IRON) TAB) Take one(1) tablet daily. CLOBETASOL 0.05 % TOPICAL CREAM Apply to affected area(s) of psoriasis with dry scaling and cracking of hands and forearms selectively (with optional HS occlusion) qday to bid (once or twice daily) as directed and tolerated and then taper off to bland moisturizing creams as able when clear. FAMILY HISTORY Problem Relation Age of Onset - past [OTHER] Mother sarcoidosis - None Father Social History Substance Use Topics - Smoking status: Never Smoker - Smokeless tobacco: Never Used - Alcohol use No Objective Physical Exam Constitutional: He is well-developed, well-nourished, and in no distress. HENT: Head: Normocephalic. Right Ear: Tympanic membrane, external ear and ear canal normal. Left Ear: External ear and ear canal normal. Tympanic membrane is retracted. A middle ear effusion is present. Nose: Nose normal. Mouth/Throat: Uvula is midline, oropharynx is clear and moist and mucous membranes are normal. Mucous membranes are not pale and not dry. Oral lesions present. No posterior oropharyngeal edema or posterior oropharyngeal erythema. Eyes: Conjunctivae are normal. Right eye exhibits no discharge. Left eye exhibits no discharge. Neck: Neck supple. Cardiovascular: Normal rate, regular rhythm and normal heart sounds. Pulmonary/Chest: Effort normal and breath sounds normal. No respiratory distress. He has no wheezes. He has no rales. Lymphadenopathy: He has no cervical adenopathy. Neurological: He is alert. Skin: Skin is warm and dry. Nursing note and vitals reviewed. ASSESSMENT/PLAN: 1. Other acute nonsuppurative otitis media of left ear, recurrence not specified - ICD9: 381.00, ICD10: H65.192 (primary diagnosis) - Will begin treatment with Amoxicillin for 10 days - Supportive care with plenty of fluids, rest, and analgesia prn. - AMOXICILLIN 875 MG TABLET 2. Discoloration of tongue - ICD9: 529.8, ICD10: K14.8 - CONSULT TO DENTISTRY. Patient will contact his dentist today. 3. Viral URI with cough - ICD9: 465.9, ICD10: J06.9, B97.89 - Discussed viral etiology and rationale for treatment. - Symptomatic treatment with prn analgesia - Supportive care with fluids and rest - BENZONATATE 100 MG CAPSULE - Follow-up with your PCP in 3-5 days if symptoms have not improved or sooner if symptoms worsen - Discussed red flags and need for immediate medical evaluation if any occur. - Discussed supportive care treatment with fluids, rest and analgesia. - Discussed expected course of illness Nilam Heard APRN.VICTORINA HERNANDEZ Observed: 02/17/2018 Status: COMPLETED Source: [place] 10:15 AM [facility] REPOSITORY Office Visit ([facility]STR) BENJAMIN MAS ([id number]) 1935 M Date Time Provider Department 02/17/18 10:15 AM NILAM HEARD ([facility]) [facility] During your visit today, we recorded the following information about you: Temperature Pulse Respiration Blood pressure 97.7 degrees 80/minute 16/minute 130/74 Weight 77.1 kg Nilam Heard APRN.CNP 02/17/2018 10:38 AM Signed Subjective HPI Benjamin Mas is a 82 year old male who presents with cough, congestion, for the past week. He has left ear pain now. He states it is throbbing. He has not had a fever. No known sick contacts. He has taken some cough syrup at home without relief. Review of Systems Constitutional: Negative. Negative for chills and fever. HENT: Positive for congestion, ear pain and tinnitus. Negative for sore throat. Respiratory: Positive for cough, sputum production (heavy phlegm) and shortness of breath (sometimes). Cardiovascular: Negative. Skin: Negative. Negative for rash. BP 130/74 Pulse 80 Temp 36.5 ?C (97.7 ?F) (Tympanic) Resp 16 Wt 77.1 kg (170 lb) SpO2 99% BMI 23.71 kg/m? PAST MEDICAL HISTORY Diagnosis Date - PMH - PAST MEDICAL HISTORY OF hypertension - PMH - PAST MEDICAL HISTORY OF hx pulmonary embolus - PMH - PAST MEDICAL HISTORY OF subdural hematoma PAST SURGICAL HISTORY Procedure Laterality Date - PAST SURGICAL HISTORY OF brain surgery - PAST SURGICAL HISTORY OF wrist ALLERGIES Patient has no known allergies. MEDICATIONS cholecalciferol (VITAMIN D-3) 5,000 unit tab Vitamin D3 5,000 unit tablet allopurinol (ZYLOPRIM) 300 mg tablet allopurinol 300 mg tablet BUDESONIDE ORAL budesonide oral hyoscyamine SR (LEVBID) 0.375 mg 12 hr tablet budesonide, enteric coated (ENTOCORT EC) 3 mg 24 hr capsule levothyroxine (SYNTHROID) 50 mcg tablet metoprolol succinate ER (TOPROL XL) 25 mg 24 hr tablet furosemide (LASIX) 20 mg tablet Take 20 mg by mouth twice daily. aspirin 81 mg chewable tablet Take 81 mg by mouth once daily. benzonatate (TESSALON PERLES) 100 mg capsule Take 1 capsule by mouth three times daily as needed. simvastatin(ZOCOR 20 MG TAB) Take one(1) tablet daily at bedtime. ALLOPURINOL 100 MG TAB Take one(1) tablet daily. predniSONE (DELTASONE) 20 mg tablet 2 pills daily x 3 days, then 1 pill daily x 4 days. benzonatate (TESSALON PERLE) 100 mg capsule Take 1-2 capsules by mouth three times daily as needed. guaiFENesin (MUCINEX) 600 mg 12 hr tablet Take 2 tablets by mouth twice daily. LABETALOL 200 MG TAB Take one(1) tablet daily. loratadine(CLARITIN 10 MG TAB) Take one(1) tablet daily as needed for allergy symptoms. ferrous sulfate(SLOW FE 160 MG (50 MG IRON) TAB) Take one(1) tablet daily. CLOBETASOL 0.05 % TOPICAL CREAM Apply to affected area(s) of psoriasis with dry scaling and cracking of hands and forearms selectively (with optional HS occlusion) qday to bid (once or twice daily) as directed and tolerated and then taper off to bland moisturizing creams as able when clear. FAMILY HISTORY Problem Relation Age of Onset - past [OTHER] Mother sarcoidosis - None Father Social History Substance Use Topics - Smoking status: Never Smoker - Smokeless tobacco: Never Used - Alcohol use No Objective Physical Exam Constitutional: He is well-developed, well-nourished, and in no distress. HENT: Head: Normocephalic. Right Ear: Tympanic membrane, external ear and ear canal normal. Left Ear: External ear and ear canal normal. Tympanic membrane is retracted. A middle ear effusion is present. Nose: Nose normal. Mouth/Throat: Uvula is midline, oropharynx is clear and moist and mucous membranes are normal. Mucous membranes are not pale and not dry. Oral lesions present. No posterior oropharyngeal edema or posterior oropharyngeal erythema. Eyes: Conjunctivae are normal. Right eye exhibits no discharge. Left eye exhibits no discharge. Neck: Neck supple. Cardiovascular: Normal rate, regular rhythm and normal heart sounds. Pulmonary/Chest: Effort normal and breath sounds normal. No respiratory distress. He has no wheezes. He has no rales. Lymphadenopathy: He has no cervical adenopathy. Neurological: He is alert. Skin: Skin is warm and dry. Nursing note and vitals reviewed. ASSESSMENT/PLAN: 1. Other acute nonsuppurative otitis media of left ear, recurrence not specified - ICD9: 381.00, ICD10: H65.192 (primary diagnosis) - Will begin treatment with Amoxicillin for 10 days - Supportive care with plenty of fluids, rest, and analgesia prn. - AMOXICILLIN 875 MG TABLET 2. Discoloration of tongue - ICD9: 529.8, ICD10: K14.8 - CONSULT TO DENTISTRY. Patient will contact his dentist today. 3. Viral URI with cough - ICD9: 465.9, ICD10: J06.9, B97.89 - Discussed viral etiology and rationale for treatment. - Symptomatic treatment with prn analgesia - Supportive care with fluids and rest - BENZONATATE 100 MG CAPSULE - Follow-up with your PCP in 3-5 days if symptoms have not improved or sooner if symptoms worsen - Discussed red flags and need for immediate medical evaluation if any occur. - Discussed supportive care treatment with fluids, rest and analgesia. - Discussed expected course of illness TEN Craig APRN.CNP 02/17/2018 10:31 AM Signed Please call your dentist for an appointment to check the spot on your tongue. Take the antibiotic twice a day for 10 days for the ear and the cough. Take tessalon perles three times a day as needed for the cough. COUGH: The body has a cough reflex which helps expel mucous secretions and irritants from the lung and airway passages. Cough spasms are periods of continuous coughing lasting several minutes. Most coughs is caused by virus infections which may last for up to 2-3 weeks. Coughing helps to protect the lung from pneumonia. A persistent cough lasting longer than 4-6 weeks requires medical evaluation by your primary care doctor. Treatment of cough includes measures to loosen the cough and thin the mucous. Warm liquids, cough drops, and nonprescription cough medicine may help reduce dry hacking cough. Use a humidifier if necessary as dry air can make coughs worse. Ultrasonic humidifiers are especially useful as they kill molds and many bacteria. Some cough medicines have antihistamines, decongestants, or alcohol in them; there is no proof that any of these help control cough. Prescription cough medicine or those with dextromethorphan (DM) should be reserved for dry coughs that prevent sleep or cause spasms or chest pain. Avoid any exposure to cigarette smoke as this will worsen the cough or make it last much longer. Call your doctor right away if you or your child have increased breathing difficulty, a high fever, a cough that lasts longer than 3 weeks, or other serious complaints. Referring Provider: SELF [200] Allergies As of Date: 02/17/2018 (No Known Allergies) Date Reviewed: 02/17/2018 Reviewed by: Nilam ([facility]) Shantelle - Fully Assessed Reason for Visit: Cough [28] Nasal Congestion [235] Primary Visit Diagnosis:Other acute nonsuppurative otitis media of left ear, recurrence not specified [H65.192] Other Visit Diagnoses:Discoloration of tongue [K14.8] Viral URI with cough [J06.9, B97.89] Order(s):amoxicillin (AMOXIL) 875 mg tabletTake 1 tablet by mouth twice daily for 10 days.Disp: 20 tabletRfl: 0 CONSULT TO DENTISTRY [] Order #: [id number]: 1 benzonatate (TESSALON PERLES) 100 mg capsuleTake 1 capsule by mouth three times daily as needed for Cough.Disp: 30 capsuleRfl: 0 Prescriptions as of 02/17/2018 Sig: CHOLECALCIFEROL (VITAMIN D3) * Vitamin D3 5,000 unit tablet ALLOPURINOL 300 MG TABLET allopurinol 300 mg tablet BUDESONIDE ORAL budesonide oral HYOSCYAMINE ER 0.375 MG TABLE* LEVOTHYROXINE 50 MCG TABLET METOPROLOL SUCCINATE ER 25 MG* FUROSEMIDE 20 MG TABLET Take 20 mg by mouth twice lorraine* ASPIRIN 81 MG CHEWABLE TABLET Take 81 mg by mouth once sandip* ZOCOR 20 MG TABLET Take one(1) tablet daily at b* AMOXICILLIN 875 MG TABLET Take 1 tablet by mouth twice * BENZONATATE 100 MG CAPSULE Take 1 capsule by mouth three* Medication notes this encounter PREDNISONE 20 MG TABLET >> Jacquelin Palacios LPN 02/17/2018 10:11 AM >> JACQUELIN PALACIOS LPN SatFeb 17, 2018 10:11 AM Course of therapy completed. Problem List As Of Date 02/17/2018 Noted Resolved OTHER PSORIASIS [L40.8] INVALID FOR* KERATODERMA, ACQUIRED [L85.1] INVALID FOR* XEROSIS///SEBACEOUS GLAND DIS NEC [L73.8] INVALID FOR* Other instructions from your clinician: Please call your dentist for an appointment to check the spot on your tongue. Take the antibiotic twice a day for 10 days for the ear and the cough. Take tessalon perles three times a day as needed for the cough. COUGH: The body has a cough reflex which helps expel mucous secretions and irritants from the lung and airway passages. Cough spasms are periods of continuous coughing lasting several minutes. Most coughs is caused by virus infections which may last for up to 2-3 weeks. Coughing helps to protect the lung from pneumonia. A persistent cough lasting longer than 4-6 weeks requires medical evaluation by your primary care doctor. Treatment of cough includes measures to loosen the cough and thin the mucous. Warm liquids, cough drops, and nonprescription cough medicine may help reduce dry hacking cough. Use a humidifier if necessary as dry air can make coughs worse. Ultrasonic humidifiers are especially useful as they kill molds and many bacteria. Some cough medicines have antihistamines, decongestants, or alcohol in them; there is no proof that any of these help control cough. Prescription cough medicine or those with dextromethorphan (DM) should be reserved for dry coughs that prevent sleep or cause spasms or chest pain. Avoid any exposure to cigarette smoke as this will worsen the cough or make it last much longer. Call your doctor right away if you or your child have increased breathing difficulty, a high fever, a cough that lasts longer than 3 weeks, or other serious complaints. Prescriptions ordered this encounter Disp Refills Start End AMOXICILLIN 875 MG TABLET 20 t* 0 02/17/2018 02/27/2018 Route: ORAL Sig: Take 1 tablet by mouth twice daily for 10 days. BENZONATATE 100 MG CAPSULE 30 c* 0 02/17/2018 Route: ORAL Sig: Take 1 capsule by mouth three times daily as needed for Cough. Medications Discontinued During This Encounter benzonatate (TESSALON PERLES) 100 mg* 40 c* 0 09/15/2016 02/17/2018 Route: ORAL Sig: Take 1 capsule by mouth three times daily as needed. Disc: Reason for discontinue is not on file. CLOBETASOL 0.05 % TOPICAL CREAM 30gms 3 11/24/2008 02/17/2018 Class: Med Update Route: TOPICAL Sig: Apply to affected area(s) of psoriasis with dry scaling and cracking of hands and forearms selectively (with optional HS occlusion) qday to bid (once or twice daily) as directed and tolerated and then taper off to bland moisturizing creams as able when clear. Disc: Reason for discontinue is not on file. guaiFENesin (MUCINEX) 600 mg 12 hr t* 30 t* 0 09/15/2016 02/17/2018 Route: ORAL Sig: Take 2 tablets by mouth twice daily. Disc: Reason for discontinue is not on file. predniSONE (DELTASONE) 20 mg tablet 10 t* 0 12/17/2017 02/17/2018 Si pills daily x 3 days, then 1 pill daily x 4 days. Disc: Reason for discontinue is not on file. benzonatate (TESSALON PERLE) 100 mg * 30 c* 0 10/14/2017 02/17/2018 Route: ORAL Sig: Take 1-2 capsules by mouth three times daily as needed. Disc: Reason for discontinue is not on file. LABETALOL 200 MG TAB 0 11/24/2008 02/17/2018 Class: Med Update Route: ORAL Sig: Take one(1) tablet daily. Disc: Reason for discontinue is not on file. loratadine(CLARITIN 10 MG TAB) 0 11/24/2008 02/17/2018 Class: Med Update Route: ORAL Sig: Take one(1) tablet daily as needed for allergy symptoms. Disc: Reason for discontinue is not on file. ferrous sulfate(SLOW FE 160 MG (50 M* 0 11/24/2008 02/17/2018 Class: OTC Route: ORAL Sig: Take one(1) tablet daily. Disc: Reason for discontinue is not on file. ALLOPURINOL 100 MG TAB 0 11/24/2008 02/17/2018 Class: Med Update Route: ORAL Sig: Take one(1) tablet daily. Disc: Reason for discontinue is not on file. budesonide, enteric coated (ENTOCORT* 06/14/2016 02/17/2018 Class: Historical Med Sig: Disc: Reason for discontinue is not on file. Encounter Status:Closed by NILAM HEARD on 02/17/18 BASIC METABOLIC Collected: 02/07/2018 Status: F Source: [place] PROFILE (BMP) 10:[address] [facility] REPOSITORY TYPE CODE TESTS RESULT OUT OF RANGE REFERENCE UNITS LAB L501.0100 74-106 mg/dL High GLU 131 Result Comment: Fasting Glucose result greater than or equal to 126 mg/dL suggests DIABETES MELLITUS per A.D.A. criteria. Please note revised GLUCOSE reference range effective 2017. LAB L501.1000 7-18 mg/dL High BUN 35 LAB L501.1100 0.70-1.30 mg/dL High CREAT,SERUM 1.86 Result Comment: The validity of the calculated GFR AND GFRAA in patients over 70 years has not been determined. Clinical correlation is essential. LAB L501.1110 >60 mL/min Low EST GFR 37 Result Comment: Non- GFR Calc LAB L501.1115 >60 mL/min Low EST GFR - AA 45 Result Comment: GFR Calc LAB L501.1300 10-20 RATIO Normal BUN/CRE 18.8 LAB L501.2200 8.5-10.1 mg/dL CA Normal 9.7 LAB L501.5300 136-145 mmol/L NA Normal 141 LAB L501.5600 3.5-5.1 mmol/L K Normal 4.2 LAB L501.5900 98-107 mmol/L High CL 108 LAB L501.6100 21.0-32.0 mmol/L Normal CO2 26.0 LAB L501.6200 5-15 Normal GAP 7 Performed By: #### L500.2500, L501.9940 #### [facility] [address] [place], [address] PSA,TOTAL- DIAGNOSTIC Collected: 02/07/2018 Status: F Source: [place] 10:[address] [facility] REPOSITORY TYPE CODE TESTS RESULT OUT OF REFERENCE UNITS RANGE LAB L501.9940 0.0-4.0 ng/mL PSA, High DIAGNOSTIC 21.30 Result Comment: This test was performed using the TPSA assay method for the [employer] chemistry system. Values obtained with different assay methods cannot be used interchangably. When changing PSA assays in the course of monitoring a patient, additional sequential testing should be carried out to confirm baseline values. 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 He states that he has no pain at rest, but with weightbearing the pain is 5:10 scale. He has taken 400 mg ibuprofen with not much relief. He has known Osteoarthritis in the Left knee and a Left Total Knee Replacement has been mentioned to the patient. He denies a twisting injury, falls, or trauma to the knee. 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 PAST MEDICAL HISTORY Diagnosis Date - PMH - PAST MEDICAL HISTORY OF hypertension - PMH - PAST MEDICAL HISTORY OF hx pulmonary embolus - PMH - PAST MEDICAL HISTORY OF subdural hematoma PAST SURGICAL HISTORY Procedure Laterality Date - PAST SURGICAL HISTORY OF brain surgery - PAST SURGICAL HISTORY OF wrist ALLERGIES Review of patient's allergies indicates no known allergies. MEDICATIONS cholecalciferol (VITAMIN D-3) 5,000 unit tab Vitamin D3 5,000 unit tablet allopurinol (ZYLOPRIM) 300 mg tablet allopurinol 300 mg tablet BUDESONIDE ORAL budesonide oral hyoscyamine SR (LEVBID) 0.375 mg 12 hr tablet levothyroxine (SYNTHROID) 50 mcg tablet metoprolol succinate ER (TOPROL XL) 25 mg 24 hr tablet furosemide (LASIX) 20 mg tablet Take 20 mg by mouth twice daily. aspirin 81 mg chewable tablet Take 81 mg by mouth once daily. simvastatin(ZOCOR 20 MG TAB) Take one(1) tablet daily at bedtime. benzonatate (TESSALON PERLE) 100 mg capsule Take 1-2 capsules by mouth three times daily as needed. budesonide, enteric coated (ENTOCORT EC) 3 mg 24 hr capsule guaiFENesin (MUCINEX) 600 mg 12 hr tablet Take 2 tablets by mouth twice daily. benzonatate (TESSALON PERLES) 100 mg capsule Take 1 capsule by mouth three times daily as needed. LABETALOL 200 MG TAB Take one(1) tablet daily. ALLOPURINOL 100 MG TAB Take one(1) tablet daily. loratadine(CLARITIN 10 MG TAB) Take one(1) tablet daily as needed for allergy symptoms. ferrous sulfate(SLOW FE 160 MG (50 MG IRON) TAB) Take one(1) tablet daily. CLOBETASOL 0.05 % TOPICAL CREAM Apply to affected area(s) of psoriasis with dry scaling and cracking of hands and forearms selectively (with optional HS occlusion) qday to bid (once or twice daily) as directed and tolerated and then taper off to bland moisturizing creams as able when clear. FAMILY HISTORY Problem Relation Age of Onset - past [OTHER] Mother sarcoidosis - None Father Social History Substance Use Topics - Smoking status: Never Smoker - Smokeless tobacco: Never Used - Alcohol use No Review of Systems Musculoskeletal: Positive for joint pain. All other systems reviewed and are negative. Objective Physical Exam Constitutional: He is oriented to person, place, and time and well-developed, well-nourished, and in no distress. Eyes: Conjunctivae are normal. Cardiovascular: Normal rate, regular rhythm, normal heart sounds and intact distal pulses. Pulmonary/Chest: Effort normal and breath sounds normal. Abdominal: Soft. Bowel sounds are normal. Musculoskeletal: He exhibits edema and tenderness. Pain elicited over the Patellar tendon, and joint space line. ROM: 90 flexion, lacks 10 degrees extension. Negative anterior drawer testing. Neurological: He is alert and oriented to person, place, and time. Skin: Skin is warm and dry. No rash noted. No erythema. Psychiatric: Affect normal. Blood pressure 132/72, pulse 74, temperature 36.9 ?C (98.5 ?F), temperature source Tympanic, resp. rate 16, weight 74.8 kg (165 lb). ASSESSMENT/PLAN: 1. Arthritis of knee - ICD9: 716.96, ICD10: M17.10 Frequent ice, F/U with Orthopedics. - PREDNISONE 20 MG TABLET FIOR Stephens Observed: 12/17/2017 Status: COMPLETED Source: [place] 4:00 PM [facility] REPOSITORY Office Visit (WSTR) CHACEBENJAMIN BROOKS ([id number]) 1935 Date Time Provider Department 12/17/17 4:00 PM JENNA SANCHEZ) [facility] During your visit today, we recorded the following information about you: Temperature Pulse Respiration Blood pressure 98.5 degrees 74/minute 16/minute 132/72 Weight 74.8 kg Jenan Sanchez PA-C 12/17/2017 4:35 PM Signed Subjective HPI Benjamin Mas is a 82 year old male who presents with left knee swelling x 3 days. He states that he has no pain at rest, but with weightbearing the pain is 5:10 scale. He has taken 400 mg ibuprofen with not much relief. He has known Osteoarthritis in the Left knee and a Left Total Knee Replacement has been mentioned to the patient. He denies a twisting injury, falls, or trauma to the knee. 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 PAST MEDICAL HISTORY Diagnosis Date - PMH - PAST MEDICAL HISTORY OF hypertension - PMH - PAST MEDICAL HISTORY OF hx pulmonary embolus - PMH - PAST MEDICAL HISTORY OF subdural hematoma PAST SURGICAL HISTORY Procedure Laterality Date - PAST SURGICAL HISTORY OF brain surgery - PAST SURGICAL HISTORY OF wrist ALLERGIES Review of patient's allergies indicates no known allergies. MEDICATIONS cholecalciferol (VITAMIN D-3) 5,000 unit tab Vitamin D3 5,000 unit tablet allopurinol (ZYLOPRIM) 300 mg tablet allopurinol 300 mg tablet BUDESONIDE ORAL budesonide oral hyoscyamine SR (LEVBID) 0.375 mg 12 hr tablet levothyroxine (SYNTHROID) 50 mcg tablet metoprolol succinate ER (TOPROL XL) 25 mg 24 hr tablet furosemide (LASIX) 20 mg tablet Take 20 mg by mouth twice daily. aspirin 81 mg chewable tablet Take 81 mg by mouth once daily. simvastatin(ZOCOR 20 MG TAB) Take one(1) tablet daily at bedtime. benzonatate (TESSALON PERLE) 100 mg capsule Take 1-2 capsules by mouth three times daily as needed. budesonide, enteric coated (ENTOCORT EC) 3 mg 24 hr capsule guaiFENesin (MUCINEX) 600 mg 12 hr tablet Take 2 tablets by mouth twice daily. benzonatate (TESSALON PERLES) 100 mg capsule Take 1 capsule by mouth three times daily as needed. LABETALOL 200 MG TAB Take one(1) tablet daily. ALLOPURINOL 100 MG TAB Take one(1) tablet daily. loratadine(CLARITIN 10 MG TAB) Take one(1) tablet daily as needed for allergy symptoms. ferrous sulfate(SLOW FE 160 MG (50 MG IRON) TAB) Take one(1) tablet daily. CLOBETASOL 0.05 % TOPICAL CREAM Apply to affected area(s) of psoriasis with dry scaling and cracking of hands and forearms selectively (with optional HS occlusion) qday to bid (once or twice daily) as directed and tolerated and then taper off to bland moisturizing creams as able when clear. FAMILY HISTORY Problem Relation Age of Onset - past [OTHER] Mother sarcoidosis - None Father Social History Substance Use Topics - Smoking status: Never Smoker - Smokeless tobacco: Never Used - Alcohol use No Review of Systems Musculoskeletal: Positive for joint pain. All other systems reviewed and are negative. Objective Physical Exam Constitutional: He is oriented to person, place, and time and well-developed, well-nourished, and in no distress. Eyes: Conjunctivae are normal. Cardiovascular: Normal rate, regular rhythm, normal heart sounds and intact distal pulses. Pulmonary/Chest: Effort normal and breath sounds normal. Abdominal: Soft. Bowel sounds are normal. Musculoskeletal: He exhibits edema and tenderness. Pain elicited over the Patellar tendon, and joint space line. ROM: 90 flexion, lacks 10 degrees extension. Negative anterior drawer testing. Neurological: He is alert and oriented to person, place, and time. Skin: Skin is warm and dry. No rash noted. No erythema. Psychiatric: Affect normal. Blood pressure 132/72, pulse 74, temperature 36.9 ?C (98.5 ?F), temperature source Tympanic, resp. rate 16, weight 74.8 kg (165 lb). ASSESSMENT/PLAN: 1. Arthritis of knee - ICD9: 716.96, ICD10: M17.10 Frequent ice, F/U with Orthopedics. - PREDNISONE 20 MG TABLET Jenna Sanchez PA-C Referring Provider: SELF [200] Allergies As of Date: 12/17/2017 (No Known Allergies) Date Reviewed: 12/17/2017 Reviewed by: Mireille Turner Ma - Fully Assessed Reason for Visit: Knee Pain [132] Cmt: and swelling x 3 days Primary Visit Diagnosis:Arthritis of knee [M17.10] Order(s):predniSONE (DELTASONE) 20 mg tablet2 pills daily x 3 days, then 1 pill daily x 4 days.Disp: 10 tabletRfl: 0 CONSULT TO ORTHOPAEDICS [9026] Order #: [id number]: 1 Prescriptions as of 12/17/2017 Sig: CHOLECALCIFEROL (VITAMIN D3) * Vitamin D3 5,000 unit tablet ALLOPURINOL 300 MG TABLET allopurinol 300 mg tablet BUDESONIDE ORAL budesonide oral HYOSCYAMINE ER 0.375 MG TABLE* LEVOTHYROXINE 50 MCG TABLET METOPROLOL SUCCINATE ER 25 MG* FUROSEMIDE 20 MG TABLET Take 20 mg by mouth twice lorraine* ASPIRIN 81 MG CHEWABLE TABLET Take 81 mg by mouth once sandip* ZOCOR 20 MG TABLET Take one(1) tablet daily at b* PREDNISONE 20 MG TABLET 2 pills daily x 3 days, then * BENZONATATE 100 MG CAPSULE Take 1-2 capsules by mouth th* BUDESONIDE DR - ER 3 MG CAPSU* GUAIFENESIN ER 600 MG TABLET,* Take 2 tablets by mouth twice* BENZONATATE 100 MG CAPSULE Take 1 capsule by mouth three* LABETALOL 200 MG TABLET Take one(1) tablet daily. ALLOPURINOL 100 MG TABLET Take one(1) tablet daily. CLARITIN 10 MG TABLET Take one(1) tablet daily as n* SLOW FE 47.5 MG IRON TABLET,E* Take one(1) tablet daily. CLOBETASOL 0.05 % TOPICAL CRE* Apply to affected area(s) of * Medication notes this encounter BENZONATATE 100 MG CAPSULE >> Mireille Turner Ma 12/17/2017 4:01 PM >> MIREILLE TURNER MA Dec 17, 2017 4:01 PM done ALLOPURINOL 100 MG TABLET >> Mireille Turner Ma 12/17/2017 4:03 PM >> JOHNNY MIREILLE CORTES Dec 17, 2017 4:03 PM not taking Problem List As Of Date 12/17/2017 Noted Resolved OTHER PSORIASIS [L40.8] INVALID FOR* KERATODERMA, ACQUIRED [L85.1] INVALID FOR* XEROSIS///SEBACEOUS GLAND DIS NEC [L73.8] INVALID FOR* Prescriptions ordered this encounter Disp Refills Start End PREDNISONE 20 MG TABLET 10 t* 0 12/17/2017 Si pills daily x 3 days, then 1 pill daily x 4 days. Encounter Status:Closed by JENNA SANCHEZ PA-C on 12/17/17 PACEMAKER CHECK Observed: 12/06/2017 Status: F Source: [place] 4:[address] [facility] REPOSITORY [facility] [address] [place] [address] Pacemaker Check Date of Service: 11/21/17 1159 MR#: [id number] Acct: [id number] Name: BENJAMIN MAS J Rep #: [id number] : 1935 From: Tasha Lopez Age/Sex: 82/M Location: [facility] Status: Signed Comments Summary Comments: Dual Chamber Pacemaker Evaluation: Interrogation shows 7 MS episodes, <1% total time and 1 NSVT episode since 05/20/17. Stored e-gram for NSVT episode on 08/05/17 shows MVT @ 170 bpm x 9 beats (AV dissociated). Left pectoral pocket/incision w/o s/s of infection or erosion. Pt offers no cardiac complaints. 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 Battery longevity approx 5.5 yrs. Lead impedances, atrial sensing and A/V pace/sense thresholds remain stable. Unable to check ventricular sensing d/t no intrinsic R waves with rate decrease. No parameter changes made. Counters cleared. Next f/u appt scheduled for in 6 mos. Pt has o.v today with Dr. Joseph for further cardiac evaluation. Device Device Date Interviewed: 11/21/17 Follow-up Location: in office Interview Reason: routine follow up Lamps Tester And Inspector: Girl Meets Dress Name: Gridcentric Model: [id number] Serial #: [id number] Implant Date: 04/15/14 Year(s): 3 Implant Physician: Dr. Vick Borden Patient Characteristics AV/Node Indication: Complete heart block Ejection fraction %: 60 to 64 By: Echo Underlying rhythm: Sinus bradycardia Pacemaker Dependent: No Device Characteristics Device: Dual Chamber Type: Pacemaker Remote Follow-Up: Latitude Device Physical Exam Yes Incision well healed, No hematoma, Pocket not tender and No drainage Leads Lead #1 Lamps Tester And Inspector Lead 1: [employer] Model Lead 1: Serial# Lead 1: [id number] Date Implanted Lead 1: 04/15/14 Position Lead 1: RA Lead #2 Lamps Tester And Inspector Lead 2: [employer] Model Lead 2: Serial# Lead 2: [id number] Date Implanted Lead 2: 04/15/14 Position Lead 2: RV Diagnostics Pacing % RA Pacin % RV Pacin Mode Switching Total # Episodes: 7 % Mode switched: 1 Arrhythmias Non-Sust Episodes: 1 Measurements Battery Magnet Rate (bmp): 100 Battery Status: LEWIS Predicted Remaining Longevity (months or years): 7 years RA Measurements Signal Amplitude (mV): 2.9 Impedance (Ohms): 384 Threshold Voltage: 1.0 @ PW(ms): 0.4 RV Measurements Impedance (Ohms): 712 Threshold Voltage: 0.8 @ PW(ms): 0.4 Tachy Settings VF ms (bpm) FVT ms (bpm) VT ms (bpm) Monitor Monitor Only ms (bpm) VF Therapies VF Therapy Status On/Off On/Off On/Off On/Off On/Off On/Off Energy Pathway ATP: During charging FVT Therapies FVT Therapy Status On/Off On/Off On/Off On/Off On/Off On/Off VT Therapies FVT Therapy Status On/Off On/Off On/Off On/Off On/Off On/Off Comments: Kelby Settings Kelby Settings Pacemaker Mode DDDR Output/Sensing V/PW (ms) 2.0/0.4 auto1.3/0.4 Sensitivity RA RV LV Comments: Billing Codes PM Device Codes: PM Dev Prog Eval, Dual Assessment AND Plan Problems 1. Cardiac pacemaker in situ Z95.0 04/15/2014 @ [facility] 2. History of complete heart block Z86.79 04/2014>pacemaker inserted 3. Atrial flutter with controlled response I48.92 4. Paroxysmal ventricular tachycardia I47.2 5. Paroxysmal atrial fibrillation I48.0 12/05/17 1810 <Electronically signed by Tasha Lopez > Date Tasha Lopez 12/06/17 1610<Electronically signed by Faizan Joseph MD> Cosigner Signature: Date (if applicable) Faizan Joseph MD CC: LIVER PROFILE Collected: 11/21/2017 Status: F Source: [place] 12:[address] [facility] REPOSITORY TYPE CODE TESTS RESULT OUT OF RANGE REFERENCE UNITS LAB L501.1500 6.4-8.2 g/dL Normal T PROT 6.8 LAB L501.1800 3.2-5.0 g/dL Normal ALB 3.5 LAB L501.1950 2.2-4.2 g/dL Normal GLOB 3.3 LAB L501.4100 15-37 U/L Normal AST 27 LAB L501.4305 45-117 U/L Normal ALK P 69 LAB L501.4405 16-61 U/L Normal ALT 34 Result Comment: Please note revised ALT reference range effective 2017. LAB L501.4600 0.20-1.00 mg/dL Normal T BILI 0.50 LAB L501.4700 0.00-0.30 mg/dL Normal D BILI 0.14 Performed By: #### L500.3400, L500.4100 #### [facility] [address] [place], [place], [id number] LIPID PROFILE Collected: 11/21/2017 Status: F Source: [place] 12:[address] [facility] REPOSITORY TYPE CODE TESTS RESULT OUT OF RANGE REFERENCE UNITS LAB L501.4900 200 mg/dL Normal CHOL 126 Result Comment: <200 mg/dL Desirable 200-240 mg/dL Borderline >240 mg/dL High Risk LAB L501.5000 mg/dL Normal TRIG 77 Result Comment: The drugs N-Acetylcysteine and Metamizole may falsely depress this assay. Serum Triglycerides Reference Interval Normal <150 mg/dL Borderline high 150 - 199 mg/dL High 200 - 499 mg/dL Very High > or = 500 mg/dL LAB L501.6400 mg/dL Normal HDL 48 Result Comment: The drugs N-Acetylcysteine and Metamizole may falsely depress this assay. Reference Range HDL <40 mg/dL Low HDL Cholesterol HDL >or= 60 mg/dL High HDL Cholesterol LAB L501.6500 0-130 mg/dL Normal LDL 63 LAB L501.6600 5-40 mg/dL Normal VLDL 15 Performed By: #### L500.3400, L500.4100 #### [facility] [address] [place], [address] CARDIOLOGY VISIT Observed: 11/21/2017 Status: F Source: [place] REPORT 11:[address] [facility] REPOSITORY [facility] [address] [place] [address] OFFICE VISIT Date of Service: 11/21/17 MR#: [id number] Acct: [id number] Name: BENJAMIN MAS Rep #: [id number] : 1935 Provider: Faizan Joseph MD Age/Sex: 82/M Location: [facility] Status: Signed [facility] Chief Complaint: Follow-up visits. Details: BENJAMIN MAS, is a 82 M who presents to the office today for a follow-up visit. He is a gentleman with a history of chronic persistent atrial fibrillation status post pacemaker placement history of hyperlipidemia and a previous history of subdural hematoma. He returns for follow-up visit. He denies any chest pain or shortness breath or paroxysmal nocturnal dyspnea or pedal edema he has had no neck arm or jaw discomfort suggest angina. He has had no dizziness or diaphoresis no near syncope or syncope. He has been compliant with all his medications. He is also here for routine pacemaker follow- up. His physical exam today demonstrates clear lung crews regular rate and rhythm and no pedal edema. Intake Vital Signs11/21/17 Height 5 ft 11 in 11/21/17 Weight: 167 lb 11/21/17 Body Mass Index (BMI) 23.3 11/21/17 Blood Pressure 130/60 Intake Visit Reasons: 6 M FU; pacer @ 10:30 Is patient in pain?: No Allergies No Known Allergies Allergy (Verified 11/20/17 19:28) Medications Allopurinol [Zyloprim] 300 mg PO DAILY 07/07/13 [History Confirmed 11/21/17] Levothyroxine [Synthroid] 50 mcg PO DAILY 08/02/13 [History Confirmed 11/21/17] Simvastatin [Zocor] 40 mg PO QHS 08/02/13 [History Confirmed 11/21/17] Aspirin [Aspirin, Baby] 81 mg PO DAILY@0800 02/24/14 [History Confirmed 11/21/17] Hyoscyamine [Levsinex] 1 mg PO DAILY 02/24/14 [History Confirmed 11/21/17] Cholecalciferol (Vitamin D3) [Vitamin D3] 1 tab PO DAILY 09/25/15 [History Confirmed 11/21/17] Metoprolol Tartrate [Lopressor (Beta Darshan)] 25 mg PO DAILY 09/25/15 [History Confirmed 11/21/17] furosemide 20 mg tablet 20 mg PO DAILY #90 tab 11/13/17 [Rx Confirmed 11/21/17] budesonide DR - ER 3 mg capsule,delayed,extended release 3 mg PO DAILY ea 11/20/17 [History Confirmed 11/21/17] Ejection fraction %: 60 to 64 PFSH Medical History History of pulmonary embolism (Chronic) History of CVA (cerebrovascular accident) (Chronic) History of complete heart block (Chronic) History of DVT (deep vein thrombosis) (Chronic) Hyperlipidemia (Chronic) Hypertension (Chronic) Atrial flutter with controlled response (Chronic) Paroxysmal ventricular tachycardia (Chronic) Nonrheumatic aortic (valve) stenosis with insufficiency (Chronic) Paroxysmal atrial fibrillation (Chronic) History of subdural hematoma (Chronic) Pulmonary hypertension (Chronic) Surgical History Cardiac pacemaker in situ (Chronic) Family History Mother , Age 51 from Sarcoidosis Sarcoidosis Father , age 79 CVA, CHF CVA (cerebral vascular accident) Congestive heart failure Sister , respiratory failure Respiratory failure Social History Smoking Status: Former smoker ROS Const Const: Positive for other (Raised 5 granchildren, now has 3 living with him); negative for fatigue, weakness, body ache, fever(s), headache(s), chills, frequent falls, night sweats, daytime sleepiness, difficulty sleeping, excessive sweating, weight gain, weight loss, increased appetite, poor appetite or anorexia Eyes Eyes: Negative for blind spots, loss of peripheral vision, transient loss of vision, blurry vision, change in vision, double vision, floaters, tunnel vision or other ENT ENT: Negative for headache(s), dizziness, hearing loss, tinnitus, Nosebleed/epistaxis, balance problems, post nasal drip, lip swelling, tongue swelling, bleeding gums, hoarseness, neck pain, dry mouth or other Cardio Chest Pain: No Resp Respiratory: Positive for SOB with activity (occasional); negative for SOB at rest, SOB orthopnea\SOB lying down, Coughing up blood/hemoptysis, chest congestion, pain on inspiration, snoring, stridor, wheezing, crackles, paroxysmal nocturnal dyspnea or other GI GI: Negative nausea, vomiting, heartburn, constipation, belching, bloating, cramping, vomiting blood/hematemesis, bright, red blood in stools, black,tarry stools, loose stools, Difficulty Swallowing or other : Negative for hematuria, frequent nighttime urination/ nocturia, erectile dysfunction or abnormal vaginal bleeding Musc Musc: Negative for balance problems, muscle aches/ myalgia, muscle weakness or joint pain Skin Skin: Negative redness, non-healing lesions, rash, unusual bruising, skin ulcer, wounds, jaundice or other Neuro Neuro: Negative for weakness, headache(s), frequent falls, blurry vision, double vision, dizziness, lightheadedness, near syncope, syncope, orthostatic symptoms, confusion, memory loss, restless legs, vertigo, seizures, lack of coordination or other Kan Hematologic/Lymphatic: Negative for easy bleeding, easy bruising, enlarged lymph nodes or other Endo Endo: Negative for fatigue, excessive sweating, cold intolerance, heat intolerance, flushing, increased thirst/drinking, increased hunger, hair loss, hair growth or other Psych Psych: Negative for anxiety, depression, thoughts of harming anyone, thoughts of harming yourself, visual hallucinations, panic attacks or audible hallucinations Allergy Allergy/Immunology: Negative for lip swelling, Negative for tongue swelling, Negative for rash, Negative for throat swelling, Negative for hives Cardiology Exam Const Appearance: cooperative, healthy appearing, well developed, well groomed and no acute distress Nutritional Appearance: well nourished and average body habitus Orientation: alert, awake and oriented x3 Head Head: normal to inspection, normocephalic and atraumatic Ears: hearing grossly normal bilaterally and external ears normal Nose: external nose normal, nasal mucous membranes and turbinates normal, nares normal, septum normal, no nasal discharge Face and Sinus: face symmetric Mouth: oral mucosae normal, tongue normal, oropharynx normal and moist mucous membranes Teeth and gingiva: dentition normal Throat: posterior oropharynx normal, tonsils normal and uvula midline Eyes General: appearance normal, both eyes and all related structures Eyelids: eyelids normal Conjunctivae: conjunctivae normal Pupils: PERRL, normal by confrontation and accommodation normal EOM: EOM intact bilaterally Neck Neck: normal visual inspection, trachea midline and no JVD JVD: +5 Carotids: normal carotid upstroke and bounding pulses Chest Chest inspection: normal inspection of the chest, symmetric chest movement and normal respiratory effort Auscultation: Bilateral: Clear to Auscultation Cardio Palpation: normal PMI Rate: regular rate Rhythm: regular rhythm Heart sounds: S1 normal, S2 normal and normal, physiologic split S2; negative rub, gallop or murmur GI GI: normal to inspection, soft, no hepatosplenomegaly and bowel sounds present Neuro General: alert, awake, oriented x3, no focal sensory deficit, gait normal and moves all extremities Skin Skin: no rashes or lesions noted Extremities Pulses: Normal: Right Femoral Pulse, Left Femoral Pulse, Right Dorsalis Pedis Pulse, Left Dorsalis Pedis Pulse, Right Posterior Tibial Pulse, Left Posterior Tibial Pulse, Right Radial Pulse, Left Radial Pulse Lower Extremity Edema: None: Bilateral Musculoskel Musculoskeletal: No joint tenderness Psych Psychological: normal affect Assessment AND Plan 1. Paroxysmal atrial fibrillation I48.0 Plan His ventricular response rate appears to well controlled. He is not able to be anticoagulated due to his history of epidural hematoma but he will continue on his aspirin. No other this will be made with respect to this atrial fibrillation. As remember his last echocardiogram had demonstrated ejection fraction of 60% with stage II diastolic dysfunction biatrial enlargement and pulmonary systolic pressure of 42 mmHg. 2. Cardiac pacemaker in situ Z95.0 04/15/2014 @ [facility] Plan His pacemaker was interrogated today. He is AV sequentially paced at 65 bpm. Adequate battery longevity of 5-1/2 years is noted and lead impedance is noted to be normal. 3. Essential hypertension I10 Plan His blood pressure appears to be under good control on the current medical therapy with the metoprolol and low-dose diuretic. No change will be made with respect to the above. 4. Pure hypercholesterolemia E78.00; E78.0 Plan He is on a medium intensity statin which will be continued. His most recent lipid profile demonstrated a cluster 133 HDL of 45 and LDL of 67. I would suggest that we repeat his lipid profile. If you could forward a copy of this to me I will be most grateful. Thank you for allowing me to part spent in his care. Orders Orders: Plan Detail Follow Up 6 Months (r) Coding Level of Care Code Off vis,est,level 3 Diagnoses Paroxysmal atrial fibrillation I48.0 Cardiac pacemaker in situ Z95.0 Essential hypertension I10 Hypertension type: essential hypertension Pure hypercholesterolemia E78.00; E78.0 Hyperlipidemia type: pure hypercholesterolemia Coding Level of Care Code Off vis,est,level 3 Diagnoses Paroxysmal atrial fibrillation I48.0 Cardiac pacemaker in situ Z95.0 Essential hypertension I10 Hypertension type: essential hypertension Pure hypercholesterolemia E78.00; E78.0 Hyperlipidemia type: pure hypercholesterolemia 11/21/17 1127 <Electronically signed by Faizan Joseph MD> Date Faizan Joseph MD Cosigner Signature: Date (if applicable) CC: Ethan Tubbs MD PROGRESS Observed: 11/11/2017 Status: COMPLETED Source: [place] 12:54 PM [facility] REPOSITORY HNO ID: [id number] Author: Ayaan Garcia Service: (none) Author Type: Physician Type: Progress Notes Filed: 11/11/2017 12:56 PM Note Text: Ayaan Garcia MD Department of Orthopaedics [facility] [address] [facility] [address] Dept: [phone] Dept November 11, 2017 CHIEF COMPLAINT: New Patient (Right knee pain - Ref. Shantelle) HPI: Mr. Benjamin Mas is a 82 year old male who presents with new onset of pain in the right knee. He has had some troubles with the knee for many years as he had surgery many years ago, but only pain this past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 allergies indicates no known allergies. MEDICATIONS Current Outpatient Prescriptions: guaiFENesin (MUCINEX) 600 mg 12 hr tablet Take 2 tablets by mouth twice daily. benzonatate (TESSALON PERLES) 100 mg capsule Take 1 capsule by mouth three times daily as needed. LABETALOL 200 MG TAB Take one(1) tablet daily. loratadine(CLARITIN 10 MG TAB) Take one(1) tablet daily as needed for allergy symptoms. ferrous sulfate(SLOW FE 160 MG (50 MG IRON) TAB) Take one(1) tablet daily. CLOBETASOL 0.05 % TOPICAL CREAM Apply to affected area(s) of psoriasis with dry scaling and cracking of hands and forearms selectively (with optional HS occlusion) qday to bid (once or twice daily) as directed and tolerated and then taper off to bland moisturizing creams as able when clear. cholecalciferol (VITAMIN D-3) 5,000 unit tab Vitamin D3 5,000 unit tablet allopurinol (ZYLOPRIM) 300 mg tablet allopurinol 300 mg tablet BUDESONIDE ORAL budesonide oral hyoscyamine SR (LEVBID) 0.375 mg 12 hr tablet budesonide, enteric coated (ENTOCORT EC) 3 mg 24 hr capsule levothyroxine (SYNTHROID) 50 mcg tablet metoprolol succinate ER (TOPROL XL) 25 mg 24 hr tablet furosemide (LASIX) 20 mg tablet Take 20 mg by mouth twice daily. aspirin 81 mg chewable tablet Take 81 mg by mouth once daily. simvastatin(ZOCOR 20 MG TAB) Take one(1) tablet daily at bedtime. ALLOPURINOL 100 MG TAB Take one(1) tablet daily. No current facility-administered medications for this visit. SOCIAL HISTORY Social History Marital status: Spouse name: Years of education: Number of children: Social History Main Topics Smoking status: Never Smoker Smokeless status: Never Used Alcohol use: No REVIEW OF SYSTEMS All other reviewed and negative other than HPI. OBJECTIVE: BP 124/62 Pulse 73 Temp 36.2 ?C (97.1 ?F) (Tympanic) Resp 24 Wt 75.8 kg (167 lb) SpO2 98% APPEARANCE Well appearing, alert, in no acute distress, well-hydrated, well nourished. EYES PERRLA, conjunctiva and sclera normal. EARS External ears normal, canals clear. TMs normal SAMM NOSE/SINUS Nares normal. Septum midline. Mucosa normal. No drainage or sinus tenderness. THROAT normal, no erythema NECK Supple, no adenopathy; HEART RRR with normal S1 and S2 LUNG few coarse breath sounds SAMM, R>L. ASSESSMENT/PLAN: 1. Cough - ICD9: 786.2, ICD10: R05 Supportive care with fluids and rest - XR CHEST 2V FRONTAL/LAT - BENZONATATE 100 MG CAPSULE F/u in 7-10 days if not improving, sooner if worsening The patient indicates understanding of these issues and agrees with the plan. Reviewed red flags and when to seek care sooner. Jori Plascencia PA-C BASIC METABOLIC Collected: 10/07/2017 Status: F Source: [place] PROFILE (BMP) 3:[address] [facility] REPOSITORY TYPE CODE TESTS RESULT OUT OF RANGE REFERENCE UNITS LAB L501.0100 70-110 mg/dL Normal GLU 89 LAB L501.1000 7-18 mg/dL High BUN 30 LAB L501.1100 0.70-1.30 mg/dL High 1.56 CREAT,SERUM Result Comment: The validity of the calculated GFR AND GFRAA in patients over 70 years has not been determined. Clinical correlation is essential. LAB L501.1110 >60 mL/min Low EST GFR 46 Result Comment: Non- GFR Calc LAB L501.1115 >60 mL/min Low EST GFR - AA 55 Result Comment: GFR Calc LAB L501.1300 10-20 RATIO Normal BUN/CRE 19.2 LAB L501.2200 8.5-10.1 mg/dL CA Normal 9.5 LAB L501.5300 136-145 mmol/L NA Normal 140 LAB L501.5600 3.5-5.1 mmol/L K Normal 4.1 LAB L501.5900 98-107 mmol/L CL Normal 107 LAB L501.6100 21.0-32.0 mmol/L Normal CO2 24.0 LAB L501.6200 5-15 Normal GAP 9 Performed By: #### L500.2500, L501.86588, L501.9310, L501.9520 #### [facility] [address] [place], [place], [address] FREE T3 Collected: 10/07/2017 Status: F Source: [place] 3:[address] [facility] REPOSITORY TYPE CODE TESTS RESULT OUT OF RANGE REFERENCE UNITS LAB L501.22661 2.18-3.98 pg/mL Normal FREE T3 2.2 Performed By: #### L500.2500, L501.16694, L501.9310, L501.9520 #### [facility] [address] [place], [place], [address] T4 TOTAL, THYROXIN Collected: 10/07/2017 Status: F Source: [place] 3:[address] [facility] REPOSITORY TYPE CODE TESTS RESULT OUT OF RANGE REFERENCE UNITS LAB L501.9310 4.5-12.1 ug/dL T4 Normal THYROXIN 7.4 Performed By: #### L500.2500, L501.72013, L501.9310, L501.9520 #### [facility] [address] [place], [address] THYROID STIM HORMONE Collected: 10/07/2017 Status: F Source: [place] (TSH) 3:[address] [facility] REPOSITORY TYPE CODE TESTS RESULT OUT OF RANGE REFERENCE UNITS LAB L501.9520 0.358-3.74 uIU/mL Normal TSH 1.52 Performed By: #### L500.2500, L501.32287, L501.9310, L501.9520 #### [facility] [address] [place], [place], [address] ALLERGIES ALLERGIES DATE TYPE / CODE NAME / CODE REACTION SEVERITY SOURCE 05/26/2018 Drug No Known Unknown [facility] Allergy/416 Allergies/X51041 Hospital 615051(SNOM 0388(RXNORM) Repository ED CT) Drug NO KNOWN [facility] Class/50457 [facility] 1003(SNOMED Repository CT) ENCOUNTERS ENCOUNTERS ADMIT/DISCHARGE ACCOUNT ADMITTING ENCOUNTER LOCATION SOURCE NUMBER CLASS 08/11/2018 [id number] Ambulatory [facility] Hospital ing:MFPLAB Repository 07/18/2018 [id number] Ambulatory [facility] Hospital ing:CVS Repository 06/11/2018 [id number] [facility] ing[facility]NM Repository 06/02/2018 [id number] Ambulatory [facility] ing:LABSPEC Repository 05/27/2018 [id number] Ambulatory [facility] ing:LAB Repository 05/26/2018/05/26/20 [id number] Ambulatory BMS[facility]:B [place] [facility] Repository 05/26/2018/05/26/20 [id number] Ambulatory BMSBuilding:B [place] 18 [place].[facility] Repository 02/27/2018/02/28/20 [id number] Ambulatory BMSBuilding:B [place] 18 [place].[facility] Repository 02/20/2018 [id number] [facility] ing:LABSPEC Repository 02/17/2018/02/19/20 [id number] Ambulatory [address] Repository 02/07/2018 [id number] [facility] ing:MFPLAB Repository 12/17/2017/12/19/19 [id number] Ambulatory [address] Repository 11/25/2017 [id number] Ambulatory BMSBuilding:B [place] Repository 11/21/2017 [id number] Ambulatory [facility] ing:MFPLAB Repository 11/21/2017/11/22/19 [id number] Ambulatory BMSBuilding:B [place] 18 [place].[facility] Repository 11/21/2017/11/22/19 [id number] Ambulatory BMSBuilding:B [place] 18 [place].[facility] Repository 11/11/2017/11/17/19 [id number] Ambulatory [address] Repository 11/04/2017/11/04/19 [id number] Ambulatory [address] Repository 11/04/2017/11/08/19 [id number] Ambulatory [address] Repository 10/14/2017/10/14/19 [id number] Ambulatory [address] Repository 10/14/2017/10/14/19 [id number] Ambulatory [address] Repository 10/07/2017 [id number] [facility] [place] [facility] ing:MFPLAB Repository PAYERS PAYERS ENCOUNTER GUARANTOR PAYER SUBSCRIBER SOURCE 08/11/2018 RADHA Primary RADHA [place] [id number] DEER Insurance:[facility] [id number] [address]Frr: Number: Repository [id number] (HP) Date:2018-08-11 08/11/2018 Secondary RADHA [place] [facility] Number: [id number] Hospital [id number] Repository Date:7308-47-64SL [facility] [address]2717WCUGWFU, [place] [address]TS: 08/11/2018 Tertiary NOT GIVENUNK [place] Insurance:SELF PAY [facility] Number: Effective Repository Date:2018-08-11 07/18/2018 RADHA Primary RADHA [place] [id number] DEER Insurance:MEDICARE WENDELLDOB: [facility], PART A [facility] [id number] Corners Regional Health Center [address]Cji: Number: Repository [id number] (HP) Date:2018-07-16 07/18/2018 Secondary RADHA [place] [facility] WENDELLDOB: [facility] Number: [id number] Hospital [id number] Repository Date:0177-30-48XS [facility] [address]3945KASGXTQ, [place] [address]NE: 07/18/2018 Tertiary NOT GIVENUNK [place] Insurance:SELF PAY [facility] Number: Effective Repository Date:2018-07-16 06/11/2018 RADHA Primary RADHA [place] [id number] DEER Insurance:MEDICARE WENDELLDOB: [facility], PART A [facility] [id number] Corners Regional Health [facility] [address]Zff: Number: Repository [id number] (HP) Date:2018-06-05 06/11/2018 Secondary RADHA [place] Insurance:AARPPolicy FALLONNDELLDOB: Community Number: [id number] Hospital [id number] Repository Date:1187-91-91UV [facility] [address]28[address]SUGJBIN, [place] [address]BJ: 06/11/2018 Tertiary NOT GIVENUNK [place] Insurance:SELF PAY [facility] Number: Effective Repository Date:2018-06-05 06/02/2018 RADHA Primary RADHA [place] [id number] DEER Insurance:MEDICARE WENDELLDOB: [facility], PART A [facility] [id number] Corners Regional Health Center [address]Xaa: Number: Repository [id number] (HP) Date:2018-06-02 06/02/2018 Secondary RADHA [place] [facility] EDGARB: Community Number: [id number] Hospital [id number] Repository Date:7393-63-77WF [address]YRD, [place] [address]KS: 06/02/2018 Tertiary NOT GIVENUNK [place] Insurance:SELF PAY [facility] Number: Effective Repository Date:2018-06-02 05/27/2018 RADHA Primary RADHA [place] [id number] DEER Insurance:MEDICARE [facility]OH[facility]ITALDOB: [facility], PART A [facility] [id number] Corners Regional [facility] Center [address]Qae: Number: Repository [id number] (HP) Date:2018-05-27 05/27/2018 Secondary RADHA [place] Insurance:AARPPolicy FALLONNDELLDOB: Community Number: [id number] [place] [address] [id number] Repository Date:1276-25-52YQ [address], [place] [address]BT: 05/27/2018 Tertiary NOT GIVENUNK [place] Insurance:SELF PAY [facility] Number: Effective Repository Date:2018-05-27 05/26/2018 RADHA Primary RADHA [place] [id number] DEER Insurance:MEDICARE WENDELLDOB: [facility], PART A [facility] [id number] Corners Regional Health Center [address]Klo: Number: Repository [id number] (HP) Date:2017-12-05 05/26/2018 Secondary RADHA [place] Insurance:[facility] WETXELLDOB: Community Number: [id number] Hospital [id number] Repository Date:4781-31-84ZK [address]CYDEGKM, [place] [address]GQ: 05/26/2018 Tertiary NOT GIVENUNK [place] Insurance:SELF PAY [facility] Number: Effective Repository Date:2018-05-26 05/26/2018 RADHA Primary RADHA [place] [id number] [place] Insurance:MEDICARE WENDELLDOB: [facility], PART A [facility] [id number] Corners Regional Health Center [address]Jox: Number: Repository [id number] (HP) Date:2017-11-21 05/26/2018 Secondary RADHA [place] Insurance:AARPPolicy WENDELLDOB: Community Number: [id number] Hospital [id number] Repository Date:4609-30-95ZN [address]NFMWUOQ, [place] [address]EP: 05/26/2018 Tertiary NOT GIVENUNK [place] Insurance:SELF PAY [facility] Number: Effective Repository Date:2018-05-26 02/27/2018 RADHA Primary RADHA [place] [id number] DEER Insurance:MEDICARE WENDELLDOB: [facility], PART A [facility] [id number] Corners Regional [facility] [address]Ynn: Number: Repository [id number] (HP) Date:2018-02-27 02/27/2018 Secondary RADHA [place] Insurance:AARPPolicy JOSE ARMANDOELLDOB: Community Number: [id number] Hospital [id number] Repository Date:0100-35-70RJ [facility] 100714PQBJNCQ, [place] [address]ME: 02/27/2018 Tertiary NOT GIVENUNK [place] Insurance:SELF PAY [facility] Number: Effective Repository Date:2018-02-27 02/20/2018 RADHA Primary RADHA [place] [id number] DEER Insurance:MEDICARE WENDELLDOB: [facility], PART A [facility] [id number] Corners Regional Health Center [address]Cjc: Number: Repository [phone] [id number] -4 (HP) Date:2018-02-20 02/20/2018 Secondary RADHA [place] Insurance:AARPPolicy JOSE ARMANDOELLDOB: Community Number: [id number] Hospital [id number] Repository Date:9056-24-66GD [facility] 544186VFQJTCE, [place] [address]AV: 02/20/2018 Tertiary NOT GIVENUNK [place] Insurance:SELF PAY [facility] Number: Effective Repository Date:2018-02-20 02/07/2018 RADHA Primary RADHA [place] [id number] DEER Insurance:MEDICARE WENDELLDOB: [facility], PART A [facility] [id number] Corners Regional Health Center [address]Cvo: Number: Repository [phone] [id number] (HP) Date:2018-02-07 02/07/2018 Secondary RADHA [place] Insurance:AARPPolicy WENDELLDOB: Community Number: [id number] Hospital [id number] Repository Date:3071-91-75FH [facility] 111911RNQWCQR, [place] [address]LH: 02/07/2018 Tertiary NOT GIVENUNK [place] Insurance:SELF PAY [facility] Number: Effective Repository Date:2018-02-07 11/25/2017 RADHA Primary RADHA [place] [id number] DEER Insurance:AARPPolicy WENDELLDOB: [facility], Number: [id number] Corners Regional Health Center [address]Lio: [id number] Repository [phone] Date:6169-29-63YN [address] 613446KZTJXJL, [place] [address]EW: 11/25/2017 Secondary RADHA [place] Insurance:MEDICARE [facility]ITALELLDOB: [facility] A [facility] [id number] Hospital Number: Repository [id number] Date:2017-08-21 11/25/2017 Tertiary NOT GIVENUNK [place] Insurance:SELF PAY [facility] Number: Effective Repository Date:2017-08-21 11/21/2017 RADHA Primary RADHA [place] [id number] DEER Insurance:MEDICARE WENDELLDOB: [facility], PART A [facility] [id number] Corners Regional [facility] [address]Uhc: Number: Repository [phone] [id number] (HP) Date:2017-11-21 11/21/2017 Secondary RADHA [place] [facility] Number: [id number] Hospital [id number] Repository Date:3053-94-25TE [address]XZXAFED, [place] [address]UW: 11/21/2017 Tertiary NOT GIVENUNK [place] Insurance:SELF PAY [facility] Number: Effective Repository Date:2017-11-21 11/21/2017 RADHA Primary RADHA [place] [id number] DEER Insurance:MEDICARE WENDELLDOB: [facility], PART A [facility] [id number] [place] [address]Gld: Number: Repository [phone] [id number] (HP) Date:2017-10-29 11/21/2017 Secondary RADHA [place] Insurance:AARPPolicy WENDELLDOB: Community Number: [id number] [facility] [id number] Repository Date:4257-72-84FS [facility] 308776QEQKNRB, [place] [address]UN: 11/21/2017 Tertiary NOT GIVENUNK [place] Insurance:SELF PAY [facility] Number: Effective Repository Date:2017-10-29 11/21/2017 RADHA Primary RADHA [place] [id number] [place] Insurance:MEDICARE WENDELLDOB: [facility], PART A [facility] [id number] Corners Regional Health Center [address]Hmf: Number: Repository [phone] [id number] (HP) Date:2017-08-18 11/21/2017 Secondary RADHA [place] Insurance:AARPPolicy WENDELLDOB: Community Number: [id number] Hospital [id number] Repository Date:6152-41-06LJ [facility] 216124CFHRPJU, [place] [address]XR: 11/21/2017 Tertiary NOT GIVENUNK [place] Insurance:SELF PAY [facility] Number: Effective Repository Date:2017-08-18 10/07/2017 RADHA Primary RADHA [place] [id number] [place] Insurance:MEDICARE WENDELLDOB: [facility], PART A [facility] [id number] Corners Regional Health Center [address]Roo: Number: Repository [phone] [id number] (HP) Date:2017-10-07 10/07/2017 Secondary RADHA [place] Insurance:AARPPolicy WENDELLDOB: Community Number: [id number] Hospital [id number] Repository Date:0508-69-75OG [facility] 635884HSYOV[place], [place] [address]KI: 10/07/2017 Tertiary NOT GIVENUNK [place] Insurance:SELF PAY [facility] Number: Effective Repository Date:2017-10-07
== END ==
PROVIDERS: Family Provider Family Medicine; PCP Family Medicine; Visit Provider Family Medicine
DX: I10 Essential (primary) hypertension (principal); E03.9 Hypothyroidism, unspecified
CPT/HCPCS: 36415; 80048; 84443

== ENCOUNTER 2019-08-19 13:46 | Emergency (ER) | payer MEDICARE, OTHER, SELFPAY ==
[2019-06-04 09:13] VITALS: BMI 21.3
[2019-08-19 13:47] VITALS: BP 162/81; PULSE 64; RESP 18; TEMP 36.4; O2SAT 100
--- NOTE | 2019-08-19 13:58 | CT_ITS ---
STUDY: CT BRAIN WITHOUT CONTRAST REASON FOR EXAM: Male, 84 years old. Confusion, dizziness. History of prior subdural hematoma removal. RADIATION DOSAGE (If Supplied By Facility): CTDIvol = ( 44.99 ) mGy, DLP = ( 863.60 ) mGycm TECHNIQUE: Transaxial CT imaging of the brain was performed without administration of intravenous contrast material. Individualized dose optimization techniques were used for this CT. COMPARISON: Comparison is made with prior examination dated July 05, 2017. FINDINGS: Normal soft tissue structures. There is evidence of prior right craniotomy. There is mild cerebral atrophy with widening of the extra-axial spaces and ventricular dilatation. There are areas of decreased attenuation within the white matter tracts of the supratentorial brain, consistent with microvascular disease changes. Focal encephalomalacia in the superior aspect of the left frontal lobe in keeping with prior infarction. This is new as compared to prior study. There are small punctate calcifications of the basal ganglia which are seen in the aging brain as a normal variant. Normal brainstem. 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 There is no intracranial hemorrhage. There are no findings of an acute ischemic infarction. Atherosclerotic calcification of the vertebral arteries and cavernous portions of the internal carotid arteries bilaterally. Normal visualized paranasal sinuses. CT/Brain/Head without Contrast IMPRESSION: Chronic involutional changes of the brain. Electronically Signed: Avni Estevez, at 15:01 EST , Service support ,
--- NOTE | 2019-08-19 13:58 | RAD_ITS ---
STUDY: X-RAY CHEST REASON FOR EXAM: Male, 84 years old. Dizziness and shortness of breath. TECHNIQUE: Single AP portable view of the chest. COMPARISON: Comparison is made with prior study dated July 05, 2016. FINDINGS: EKG electrodes are seen. Mild elevation of the right hemidiaphragm. The lungs are clear. There is no demonstrated pleural abnormality. Normal size heart. A left-sided dual-chamber pacemaker is seen. Normal mediastinum and kumar. Normal visualized pulmonary arteries. There is atherosclerotic tortuosity of the aortic arch and descending thoracic aorta. There are diffuse degenerative changes of the visualized thoracic spine. There is degenerative osteoarthritis of the bilateral shoulders. There is no demonstrated abnormality of the visualized soft tissue structures of the upper abdomen. RAD/Chest 1 View (Portable) IMPRESSION: No acute abnormality is seen. Electronically Signed: Avni Estevez, at 14:57 EST , Service support ,
--- NOTE | 2019-08-19 13:58 | EKG12_ITS ---
Test Reason : DIZZINESS Blood Pressure : / mmHG Vent. Rate : 064 BPM Atrial Rate : 056 BPM P-R Int : 226 ms QRS Dur : 174 ms QT Int : 462 ms P-R-T Axes : 165 -86 059 degrees QTc Int : 476 ms AV dual-paced rhythm with prolonged AV conduction Abnormal ECG Confirmed by JALYN LOPEZ, ALISON ([id number]), purchase request editor MICHELLE DAMON ([id number]) on 08/26/2019 11:30:48 AM Referred By: LEA/FANNIE Confirmed By:KRYSTA GUNDERSON MD
[2019-08-19 14:21] LABS: Absolute Neutrophil Count 4.8 X10^3/uL (2.0-7.7); Basophil# 0.03 X10^3/uL; Basophil% 0.4 % (0-1); Eosinophil# 0.22 X10^3/uL; Eosinophils% 2.9 % (0-5); Hematocrit 36.2 % (40-54); Hemoglobin 12.2 g/dL (13.0-16.5); Lymphocyte % 24.9 % (19-41); Mean Corp Hgb Conc 33.7 g/dL (32-36); Mean Corpuscular Hgb 30.5 pg (27.0-32.0); Mean Corpuscular Volume 90.5 fL (80-94); Mean Platelet Vol. 8.4 fl (6.2-12.0); Monocyte# 0.68 X10^3/uL; Monocyte% 8.9 % (0-10); NRBC Flagged by Analyzer 0 % (0-5); Neutrophil # 4.78 X10^3/uL (2.7-7.7); Neutrophil % 62.5 % (47-70); Platelet Count 186 K/mm3 (150-450); RBC Distribution Width CV 12.5 % (11.6-14.6); RBC Distribution Width SD 41.3 fl (35.1-43.9); White Blood Count 7.6 K/mm3 (4.4-11.0)
[2019-08-19 14:44] LABS: Anion Gap 7 (5-15); BUN 32 mg/dL (7-18); BUN/Creat Ratio 19.4 RATIO (10-20); Calcium,Total 10.2 mg/dL (8.5-10.1); Chloride 112 mmol/L (98-107); Creatinine, Serum 1.65 mg/dL (0.70-1.30); EST Glomerular Filtration Rate 42 mL/min (>60); Est Glom Filt Rate - Afr Amer 51 mL/min (>60); Estimated Creatinine Clearance 31.82 ml/min; Glucose 91 mg/dL (74-106); Potassium 4.2 mmol/L (3.5-5.1); Sodium Level 143 mmol/L (136-145)
[2019-08-19 15:05] LABS: Bacteria 0 SEEN /hpf (None Seen); Mucous, Urine 0 SEEN /hpf (<or=2+); Squamous Epithelial Cells - UA 0 SEEN /hpf (0-5); White Blood Cells 0 SEEN /hpf (0-5)
[2019-08-19 15:10] LABS: Color, Urine Yellow (Yellow); Glucose, Dipstick Normal (Normal); Ketone-Dipstick 5 mg/dl (Negative); Leukocyte Esterase-Dipstick Negative /ul (Negative); Nitrite-Dipstick Negative (Negative); Occult Blood-Urine 10 /ul (Negative); Protein-Dipstick 30 mg/dl (Negative); Urine Bilirubin Dipstick Negative (Negative); Urine Clarity Clear (Clear); Urine Urobilinogen Normal (Normal); Urine pH 6.5 (5.0 - 8.0)
--- NOTE | 2019-08-19 15:12 | ED.VIS.GEN ---
History of Present Illness Chief Complaint: Dizziness Informant: Patient Maximum Severity: Mild Narrative: The patient presents complaining of a confusional episode that occurred this morning that was upsetting to him. He has history of cardiac pacemaker hypertension high cholesterol, he lives with his and grandchildren, Indicates that basically he woke today in his usual state of health he went on a short ride to see his nephew as he was driving to the nephew's house he lost the direction he could not figure out how to get to the house despite having been there multiple times he then called the nephew who basically directed him to the house he finished his activities at the house and the nephew drove his own car in front of patient back to the patient's house Patient indicates he was upset and nervous over why this happened, he then indicated he felt he should be evaluated and paramedics were called he was brought in He denies being dizzy he denies fever cough chest pain abdominal pain numbness weakness or paresthesias He reports he stopped taking all of his medications years ago because he does not like taking medicines and does not like seeing doctors He reports he is able to wake up even dress himself eat drink drive his car, 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 out other daily activities without difficulty, he denies confusional episodes denies any head trauma denies any recent illness Unclear why he became confused today his family apparently are on their way to the emergency department vital Signs are unremarkable and is resting comfortably in the bed in no distress Past Medical History - Allergies and Home Meds Allergies/Adverse Reactions: Allergies No Known Allergies Allergy (Verified 08/19/19 14:00) Primary Care Physician: Ethan Tubbs MD [Primary Care Provider] - Past Medical History: - Surgical History: noncontributory, - Smoking Status: Former smoker Review of Systems ROS: - As above General: Reports: - - Transient confusion this morning. Denies: Chills, Fever, Sweats Eyes: Denies: Visual changes - bilaterally, Diplopia ENT: Denies: Rhinorrhea, Sore throat Cardiovascular: Denies: Chest pain, Palpitations Respiratory: Denies: Dyspnea, Cough, Dyspnea on exertion Gastrointestinal: Denies: Abdominal pain, Nausea, Vomiting, Diarrhea, Melena, Hematochezia Genitourinary: Denies: Dysuria, Hematuria, Frequency Musculoskeletal: Denies: Back pain, Extremity Pain Skin: Denies: Rash, Wounds Neurological: Denies: Headache, Weakness, Numbness Physical Exam Vital Signs/Narrative: Vital Signs Temp Pulse Resp BP Pulse Ox 08/19/19 13:47 97.5 F L 64 18 162/81 H 100 General: Well nourished, Well developed, No Acute Distress Head: Normocephalic, Atraumatic Eyes: Perrl, EOMI ENT: Moist mucous membranes, No rhinorrhea Neck: Supple, Nontender Cardiovascular: Regular rate, Regular rhythm, No murmurs Respiratory: No distress, CTA bilaterally, Chest nontender Abdomen: Soft, Nontender, Nondistended, Normal bowel sounds Back: Nontender, Normal Inspection Extremities: Nontender, No edema Skin: Normal color, No rash Neurological: Alert, Oriented x3, Cranial nerves II-XII grossly intact, Normal Strength, Normal Sensation, Normal Gait, - - He is awake and alert answering questions appropriately he is oriented x3 and he insists he is no longer confused. Negative for: Confused, Disoriented, Lethargic, Coma Psychological: Normal affect, Normal Mood Diagnostic/Tx/Re-eval - Medical Decision Making Differential is rather extensive he is in no distress vital signs are normal neuro exam normal NIH 0 given all of the above ED evaluation is underway The patient's EKG shows paced rhythm nothing acute all of his general screening labs are unremarkable, he has a baseline creatinine of 1.6 troponin negative chest x-ray unremarkable Head CT shows what appears to be chronic old strokes nothing acute, UA initial result is unremarkable final is pending The family is here son and had a long conversation with them the basic confirm his history they report that generally he does very well at home he does drive on his own he does do many daily activities and family activities on his own such as shopping They are aware of the fact that he has stopped taking his medications and does not wish to see his doctors, they report the patient is very strong-willed that 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 and does not really accept assistance from them, the son reports he does have occasional confusional episodes and a few months ago he apparently got lost when he went out of town Discussed the findings with the patient and family discussed inpatient versus outpatient management, they understand the differential that would include TIA stroke worsening or new onset of confusion syndrome or dementia, the patient is adamant that he wants to be discharged home, the family reports that basically they feel that would be appropriate as they can manage him they will try to get him in follow-up with his primary care physicians and have him return for change in symptoms and they feel that he will be safe with them at home The son suggested that the possible patient should no longer be driving and I have explained that that would be a decision up to the family and his providers, and I feel that is appropriate discussion to have Home stable patient declined admission Final impression transient confusion resolved, ED Disposition - Plan for ED Patient: Diagnosis: Confusion with non-focal neuro exam Instructions: Confusion, DIZZINESS, Unk Cause Referrals: Ethan Tubbs MD [Primary Care Provider] -
[2019-08-19 15:19] LABS: Red Blood Cells-Urine 0-5 SEEN /hpf (0-5)
== END 2019-08-19 15:29 | disposition home or self-care (01) ==
LOC: ED 14:31
PROVIDERS: Emergency Provider Emergency Medicine; Family Provider Family Medicine; PCP Family Medicine
DX: R41.0 Disorientation, unspecified (principal); E78.00 Pure hypercholesterolemia, unspecified; I10 Essential (primary) hypertension; Z86.73 Personal history of transient ischemic attack (TIA), and cerebral infarction without residual deficits; Z95.0 Presence of cardiac pacemaker; Z87.891 Personal history of nicotine dependence
CPT/HCPCS: 70450; 71045; 80048; 81001; 84484; 85025; 93005; 99285; A4216

== ENCOUNTER → 2019-08-27 09:15 | Outpatient (CLI) | payer MEDICARE, OTHER, SELFPAY ==
[2019-08-27 11:37] LABS: Anion Gap 6 (5-15); BUN 27 mg/dL (7-18); BUN/Creat Ratio 17.6 RATIO (10-20); Calcium,Total 9.9 mg/dL (8.5-10.1); Chloride 112 mmol/L (98-107); Cholesterol 157 mg/dL (200); Creatinine, Serum 1.53 mg/dL (0.70-1.30); EST Glomerular Filtration Rate 46 mL/min (>60); Est Glom Filt Rate - Afr Amer 56 mL/min (>60); Glucose 82 mg/dL (74-106); High Density Lipoprotein 45 mg/dL; Potassium 3.8 mmol/L (3.5-5.1); Sodium Level 143 mmol/L (136-145); Thyroid Stim Hormone (TSH) 3.33 uIU/mL (0.358-3.74); Triglycerides 96 mg/dL; Very Low Density Lipoprotein 19 mg/dL (5-40)
== END ==
PROVIDERS: Family Provider Family Medicine; PCP Family Medicine; Referring Provider Family Medicine; Visit Provider Family Medicine
DX: I10 Essential (primary) hypertension (principal); E03.9 Hypothyroidism, unspecified; E78.5 Hyperlipidemia, unspecified
CPT/HCPCS: 36415; 80048; 80061; 84443

== ENCOUNTER → 2019-10-02 10:52 | Outpatient (CLI) | payer MEDICARE, OTHER, SELFPAY ==
[2019-10-02 13:30] LABS: Anion Gap 7 (5-15); BUN 35 mg/dL (7-18); Calcium,Total 9.9 mg/dL (8.5-10.1); Chloride 109 mmol/L (98-107); Cholesterol 132 mg/dL (200); Creatinine, Serum 1.59 mg/dL (0.70-1.30); EST Glomerular Filtration Rate 44 mL/min (>60); Est Glom Filt Rate - Afr Amer 54 mL/min (>60); Free T3 2.4 pg/mL (2.18-3.98); Glucose 107 mg/dL (74-106); High Density Lipoprotein 48 mg/dL; Potassium 4.2 mmol/L (3.5-5.1); Sodium Level 142 mmol/L (136-145); Thyroid Stim Hormone (TSH) 0.93 uIU/mL (0.358-3.74); Triglycerides 84 mg/dL; Very Low Density Lipoprotein 17 mg/dL (5-40)
== END ==
PROVIDERS: PCP Family Medicine; Referring Provider Family Medicine; Visit Provider Family Medicine
DX: I10 Essential (primary) hypertension (principal); C61 Malignant neoplasm of prostate; E03.9 Hypothyroidism, unspecified
CPT/HCPCS: 36415; 80048; 80061; 84153; 84436; 84443; 84481

== ENCOUNTER → 2019-12-31 10:22 | Outpatient (CLI) | payer MEDICARE, OTHER, SELFPAY ==
[2019-12-31 12:41] LABS: Anion Gap 5 (5-15); BUN 29 mg/dL (7-18); BUN/Creat Ratio 18.2 RATIO (10-20); Chloride 106 mmol/L (98-107); Cholesterol 171 mg/dL (200); Creatinine, Serum 1.59 mg/dL (0.70-1.30); EST Glomerular Filtration Rate 44 mL/min (>60); Est Glom Filt Rate - Afr Amer 54 mL/min (>60); Free T3 2.3 pg/mL (2.18-3.98); Glucose 109 mg/dL (74-106); High Density Lipoprotein 67 mg/dL; Potassium 4.1 mmol/L (3.5-5.1); Sodium Level 139 mmol/L (136-145); T4 Total, Thyroxin 8.6 ug/dL (4.5-12.1); Thyroid Stim Hormone (TSH) 1.08 uIU/mL (0.358-3.74); Triglycerides 74 mg/dL; Very Low Density Lipoprotein 15 mg/dL (5-40)
== END ==
PROVIDERS: PCP Family Medicine; Referring Provider Family Medicine; Visit Provider Family Medicine
DX: E03.9 Hypothyroidism, unspecified (principal); E78.5 Hyperlipidemia, unspecified; I10 Essential (primary) hypertension
CPT/HCPCS: 36415; 80048; 80061; 84436; 84443; 84481

== ENCOUNTER 2020-05-15 11:38 | Emergency (ER) | payer MEDICARE, OTHER, SELFPAY ==
[2020-05-15 11:39] VITALS: BP 109/80; PULSE 81; RESP 16; TEMP 36.6; O2SAT 95; BMI 20.9
--- NOTE | 2020-05-15 11:50 | RAD_ITS ---
STUDY: X-RAY - RIGHT KNEE REASON FOR EXAM: Male, 85 years old. Fall x3 days ago. Right knee pain and swelling. TECHNIQUE: 4 view(s) of the knee. COMPARISON: None. FINDINGS: Normal visualized distal femur. Normal visualized proximal tibia and fibula. Normal proximal tibiofibular articulation. There is moderate degenerative arthrosis of the medial femorotibial compartment with moderate joint space narrowing. There is mild degenerative arthrosis of the lateral femorotibial compartment. There is moderate degenerative arthrosis of the patellofemoral articulation. There is a soft tissue prominence in the suprapatellar region suggesting a small volume joint effusion. The soft tissue structures are unremarkable. RAD/Knee 4 or More Views IMPRESSION: Small joint effusion. Tricompartmental osteoarthrosis. No demonstrated fracture. Electronically Signed: Josue Priteo MD ([facility]) at 12:24 EDT , Service support ,
--- NOTE | 2020-05-15 11:50 | ED.VIS.LOWEX ---
History of Present Illness Informant: Patient Occurred: Days - 3 days Mechanism/Context: Fall Onset: Days - 3 days Context: Sudden Onset Timing: Continuous Quality of Pain: Throbbing Location: right knee Current Severity: Moderate Maximum Severity: Severe Worsened by: Movement, walking, bending, palpation Relieved by: Nothing Associated Symptoms: Negative for: Parasthesia, Weakness, Loss of Funtion Narrative: 85-year-old male presents to the emergency department with right knee pain. Patient was in the kitchen and had a mechanical fall in his kitchen on the ceramic tile his anterior right knee hit the tile. He did not fall all the way to the ground and hit his head or suffer any other injuries. He has been ambulating since this occurred but has knee pain and swelling that has consisted. He denies any other injuries. Denies any numbness tingling or weakness Tetanus Immunization: Unknown Prior similar symptoms: No Recent Illness/Hospitalization: No <Gregorio Peter - Last Filed: 05/15/20 12:53> <Stu Le - Last Filed: 05/15/20 13:11> Chief Complaint: Fall Past Medical History Prior records reviewed: Yes Past Medical History: - - History of pulmonary embolism, hypertension, hyperlipidemia, hypothyroidism, atrial flutter Surgical History: - - Pacemaker Lives: With Family Smoking Status: Former smoker Alcohol: None Drugs: None <Gregorio Peter - Last Filed: 05/15/20 12:53> <Stu Le - Last Filed: 05/15/20 13:11> - Allergies and Home Meds Allergies/Adverse Reactions: Allergies No Known Allergies Allergy (Verified 05/15/20 11:41) Primary Care Physician: Marco Haley DO [STAFF PHYSICIAN] - 3-5 Days if not improving Ethan Tubbs MD [Primary Care Provider] - Review of Systems All systems negative except as indicated General: Denies: Chills, Fever, Sweats Eyes: Denies: Visual changes - bilaterally, Diplopia ENT: Denies: Rhinorrhea, Sore throat Cardiovascular: Denies: Chest pain, Palpitations Respiratory: Denies: Dyspnea, Cough, Dyspnea on exertion Gastrointestinal: Denies: Abdominal pain, Nausea, Vomiting, Diarrhea, Melena, Hematochezia Genitourinary: Denies: Dysuria, Hematuria, Frequency Musculoskeletal: Reports: Swelling, Extremity Pain. Denies: Back pain Skin: Denies: Rash, Wounds Neurological: Denies: Headache, Weakness, Numbness <Gregorio Peter - Last Filed: 05/15/20 12:53> Physical Exam Vital Signs/Narrative: Vital Signs Temp Pulse Resp BP Pulse Ox 05/15/20 11:39 97.8 F 81 16 109/80 95 Inital Vital Signs reviewed: Yes - Extremity Exam Right Knee: - - Patient has some mild swelling over his anterior right knee no bruising or redness no deformity. Skin intact. He has full active range of motion with flexion and extension. He is neurovascularly intact distally. He has no hip pain on palpation. General: Well nourished, Well developed Head: Normocephalic, Atraumatic Eyes: Perrl, EOMI ENT: No Trauma, Moist Mucous Membranes Neck: Nontender, Full ROM Cardiovascular: Regular rate, Regular rhythm, No murmurs Respiratory: No distress, CTA bilaterally, Chest nontender Abdomen: Soft, Nontender, Nondistended, Normal bowel sounds Back: Nontender Skin: Normal color, No rash Neurological: Alert, Oriented x3, Cranial nerves II-XII grossly intact, Normal Strength, Normal Sensation Psychological: Normal affect <Gregorio Peter - Last Filed: 05/15/20 12:53> Vital Signs/Narrative: Vital Signs Temp Pulse Resp BP Pulse Ox 05/15/20 11:39 97.8 F 81 16 109/80 95 <Stu Le - Last Filed: 05/15/20 13:11> Diagnostic/Tx/Re-eval Impressions Knee X-Ray 05/15/20 11:50 IMPRESSION: Small joint effusion. Tricompartmental osteoarthrosis. No demonstrated fracture. Electronically Signed: Josue Prieto MD (Brooks) at 12:24 EDT , Service support , 05/15/20 11:50 Xray Knee [Knee 4 or More Views] [RAD] Stat - Medical Decision Making X-ray was unremarkable. Patient will continue to use his Nish wrap rest ice and elevate we will provide orthopedics for follow-up he was advised that if symptoms worsen follow-up with orthopedics or return to the emergency department. Patient and son agreeable with plan. He will use Tylenol for pain. <Gregorio Peter - Last Filed: 05/15/20 12:53> - Medical Decision Making Patient was seen with me. I did a [id number] examination with the patient. Patient presents with right knee pain that began after a fall. Patient slipped on a rug and fell onto his right knee. Patient denies any head injury or loss of consciousness. Patient denies any paresthesias or weakness. Patient states the pain is worse with certain movements. Vital signs are stable. Patient is afebrile. Patient is in no acute distress. Musculoskeletal exam reveals tenderness over the right knee. There is a moderate effusion. There is no bony crepitance or step-off. Extensor mechanism is intact. There is some guarding on examination but there is no laxity appreciated. Range of motion was limited in all motions of the right knee secondary to pain. Pedal pulses are equal bilaterally. Sensation was intact light touch in all digits. X-rays of the right knee were obtained. There is degenerative joint changes but no acute fracture. This was interpreted by the radiologist and reviewed by myself. Patient was instructed to ice and elevate the right knee. Patient was instructed to follow-up with his primary care physician in 5 to 7 days. Patient and family understood and were agreeable with the plan. All questions were answered. <Stu Le - Last Filed: 05/15/20 13:11> ED Disposition <Gregorio Peter - Last Filed: 05/15/20 12:53> <Stu Le - Last Filed: 05/15/20 13:11> - Plan for ED Patient: Disposition: Home or Assisted Living Diagnosis: Contusion of knee, right, Knee effusion, right Instructions: ED SOFT TISSUE CONTUSION, ED Effusion Knee Referrals: Ethan Tubbs MD [Primary Care Provider] - Marco Haley DO [STAFF PHYSICIAN] - 3-5 Days if not improving
[2020-05-15 14:17] VITALS: BP 139/69
== END 2020-05-15 14:33 | disposition home or self-care (01) ==
PROVIDERS: Emergency Provider Physician Assistant Medical; PCP Family Medicine
DX: S80.01XA Contusion of right knee, initial encounter (principal); M17.11 Unilateral primary osteoarthritis, right knee; W18.09XA Striking against other object with subsequent fall, initial encounter; Y93.9 Activity, unspecified; Y92.9 Unspecified place or not applicable; Z86.711 Personal history of pulmonary embolism; Z95.0 Presence of cardiac pacemaker; Z87.891 Personal history of nicotine dependence
CPT/HCPCS: 73564; 99282

== ENCOUNTER → 2020-07-14 14:55 | Outpatient (CLI) | payer MEDICARE, OTHER, SELFPAY ==
[2020-07-14 18:07] LABS: Anion Gap 5 (5-15); BUN 31 mg/dL (7-18); BUN/Creat Ratio 17.3 RATIO (10-20); Calcium,Total 10.1 mg/dL (8.5-10.1); Chloride 110 mmol/L (98-107); Cholesterol 158 mg/dL (200); Creatinine, Serum 1.79 mg/dL (0.70-1.30); EST Glomerular Filtration Rate 39 mL/min (>60); Est Glom Filt Rate - Afr Amer 47 mL/min (>60); Free T3 2.2 pg/mL (2.18-3.98); Glucose 87 mg/dL (74-106); High Density Lipoprotein 51 mg/dL; Potassium 3.6 mmol/L (3.5-5.1); Sodium Level 140 mmol/L (136-145); Thyroid Stim Hormone (TSH) 1.24 uIU/mL (0.358-3.74); Triglycerides 127 mg/dL; Very Low Density Lipoprotein 25 mg/dL (5-40)
== END ==
PROVIDERS: PCP Family Medicine; Referring Provider Family Medicine; Visit Provider Family Medicine
DX: I10 Essential (primary) hypertension (principal); E03.9 Hypothyroidism, unspecified
CPT/HCPCS: 36415; 80048; 80061; 84443; 84481

== ENCOUNTER → 2020-07-22 11:05 | Outpatient (CLI) | payer MEDICARE, OTHER, SELFPAY ==
[2020-07-22 12:50] LABS: Erythrocyte Sedimentation Rate 9 mm/hr (0-20)
[2020-07-22 12:55] LABS: Absolute Lymphocyte Count 1.92 X10^3/uL (0.83-4.51); Absolute Neutrophil Count 6.4 X10^3/uL (2.0-7.7); Basophil# 0.03 X10^3/uL; Basophil% 0.3 % (0-1); Eosinophil# 0.12 X10^3/uL; Eosinophils% 1.3 % (0-5); Hematocrit 35.7 % (40-54); Hemoglobin 11.5 g/dL (13.0-16.5); Lymphocyte # 1.92 X10^3/ul (4.0); Lymphocyte % 20.7 % (19-41); Mean Corp Hgb Conc 32.2 g/dL (32-36); Mean Corpuscular Hgb 31.7 pg (27.0-32.0); Mean Corpuscular Volume 98.3 fL (80-94); Mean Platelet Vol. 8.7 fl (6.2-12.0); Monocyte# 0.73 X10^3/uL; Monocyte% 7.9 % (0-10); NRBC Flagged by Analyzer 0 % (0-5); Neutrophil # 6.43 X10^3/uL (2.7-7.7); Neutrophil % 69.4 % (47-70); Platelet Count 221 K/mm3 (150-450); RBC Distribution Width CV 14.8 % (11.6-14.6); RBC Distribution Width SD 53.9 fl (35.1-43.9); Red Blood Count 3.63 M/mm3 (4.6-6.2); White Blood Count 9.3 K/mm3 (4.4-11.0)
[2020-07-22 13:27] LABS: AST(SGOT) 34 U/L (15-37); Alanine Aminotransfer ALT/SGPT 37 U/L (16-61); Albumin, Serum 3.6 g/dL (3.2-5.0); Alkaline Phosphatase 80 U/L (45-117); Anion Gap 6 (5-15); BUN 30 mg/dL (7-18); BUN/Creat Ratio 16.4 RATIO (10-20); CRP 5.13 mg/L (0.0-3.0); Calcium,Total 9.9 mg/dL (8.5-10.1); Chloride 108 mmol/L (98-107); Creatinine, Serum 1.83 mg/dL (0.70-1.30); EST Glomerular Filtration Rate 38 mL/min (>60); Est Glom Filt Rate - Afr Amer 45 mL/min (>60); Globulin 3.6 g/dL (2.2-4.2); Glucose 106 mg/dL (74-106); Potassium 4.3 mmol/L (3.5-5.1); Protein, Total 7.2 g/dL (6.4-8.2); Sodium Level 140 mmol/L (136-145)
== END ==
LOC: LAB.FUTURE 11:10 → MFPLAB 11:13
PROVIDERS: PCP Family Medicine; Referring Provider Family Medicine; Visit Provider Podiatrist
DX: L97.529 Non-pressure chronic ulcer of other part of left foot with unspecified severity (principal)
CPT/HCPCS: 36415; 80053; 85025; 85652; 86140; 87070; 87075; 87205

== ENCOUNTER 2020-10-21 14:37 | Outpatient (RCR) | payer MEDICARE, OTHER, SELFPAY | END 2020-10-21 23:59 | LOC: IMMUN 14:37 | PROVIDERS: PCP Family Medicine; Referring Provider Family Medicine; Visit Provider Family Medicine | DX: Z23 Encounter for immunization (principal) | CPT/HCPCS: 0011A; 0012A ==

== ENCOUNTER → 2021-01-11 12:13 | Outpatient (CLI) | payer MEDICARE, OTHER, SELFPAY ==
[2021-01-11 15:44] LABS: ALB/GLOB Ratio 1.1 RATIO (0.9-2.4); AST(SGOT) 25 U/L (15-37); Alanine Aminotransfer ALT/SGPT 31 U/L (16-61); Albumin, Serum 3.6 g/dL (3.2-5.0); Alkaline Phosphatase 70 U/L (45-117); Anion Gap 5 (5-15); BUN 29 mg/dL (7-18); BUN/Creat Ratio 15.4 RATIO (10-20); Calcium,Total 9.5 mg/dL (8.5-10.1); Chloride 109 mmol/L (98-107); Cholesterol 158 mg/dL (200); Creatinine, Serum 1.88 mg/dL (0.70-1.30); EST Glomerular Filtration Rate 36 mL/min (>60); Est Glom Filt Rate - Afr Amer 44 mL/min (>60); Free T3 1.9 pg/mL (2.18-3.98); Globulin 3.3 g/dL (2.2-4.2); Glucose 119 mg/dL (74-106); High Density Lipoprotein 64 mg/dL; Potassium 3.8 mmol/L (3.5-5.1); Protein, Total 6.9 g/dL (6.4-8.2); Sodium Level 141 mmol/L (136-145); T4 Free Direct 1.03 ng/dL (0.76-1.46); Thyroid Stim Hormone (TSH) 0.95 uIU/mL (0.358-3.74); Triglycerides 83 mg/dL; Very Low Density Lipoprotein 17 mg/dL (5-40)
== END ==
PROVIDERS: PCP Family Medicine; Referring Provider Family Medicine; Visit Provider Family Medicine
DX: I10 Essential (primary) hypertension (principal); E03.9 Hypothyroidism, unspecified
CPT/HCPCS: 36415; 80053; 80061; 84439; 84443; 84481

== ENCOUNTER 2021-03-08 14:34 | Emergency (ER) | payer MEDICARE, OTHER, SELFPAY ==
[2021-03-08 14:38] VITALS: BP 132/79; PULSE 66; RESP 14; TEMP 36.2; O2SAT 94; BMI 22.2
--- NOTE | 2021-03-08 14:56 | EX.ED.DYSGE1 ---
HPI History of Present Illness Chief Complaint: General Illness Detail of Chief Complaint: Bruising to arms Informant: patient and family Narrative Narrative: Patient presents to the emergency department accompanied by his granddaughter who lives with him. Patient states that he has had bruising to his arms for a couple of months. Patient became concerned about them today and presents for evaluation. Patient does not know if he is on any blood thinner medications because there is a visiting nurse that brings his pills once a week. Patient did not want to follow-up with his primary care physician but wanted to come to the ER to get evaluated today. Patient otherwise states he feels great. Patient Nuys chest pain or shortness of breath. He does have history of PE and DVT as well as history of A. fib. Prior similar symptoms: No PFSH PFSH Medical History (Updated 03/08/21 @ 16:[address] Ondina Nazario, DO) Atrial flutter with controlled response History of complete heart block History of CVA (cerebrovascular accident) History of DVT (deep vein thrombosis) History of pulmonary embolism History of subdural hematoma Hyperlipidemia Hypertension Nonrheumatic aortic (valve) stenosis with insufficiency Paroxysmal atrial fibrillation Paroxysmal ventricular tachycardia Pulmonary hypertension Home Medications Allopurinol 300 mg PO DAILY 11/11/20 [History Last Taken Unknown] Aspirin 81 mg PO DAILY 11/11/20 [History Last Taken Unknown] Budesonide 3 mg PO DAILY 11/11/20 [History Last Taken Unknown] Furosemide 20 mg PO DAILY 11/11/20 [History Last Taken Unknown] Levothyroxine 50 mcg PO DAILY 11/11/20 [History Last Taken Unknown] Simvastatin 40 mg PO DAILY 11/11/20 [History Last Taken Unknown] Vitamin D3 1 tab PO DAILY 11/11/20 [History Last Taken Unknown] Allergy/AdvReac Type Severity Reaction Status Date / Time No Known Allergies Allergy Verified 03/08/21 14:37 Family History Mother , Age 51 from Sarcoidosis Sarcoidosis Father , age 79 CVA, CHF CVA (cerebral vascular accident) Congestive heart failure Sister , respiratory failure Respiratory failure Surgical History Cardiac pacemaker in situ Social History (Updated 06/04/19 @ 09:46 by Annika VEE, PA) Smoking Status: Current some day smoker tobacco type: cigars ROS ROS ED Constitutional Constitutional ED: Reports systems reviewed and no addt'l complaints, except as documented; Denies body ache(s), change in weight or chills Eyes Eyes: Denies acute decrease in peripheral vision, change in vision, double vision or loss of vision ENT ENT ED: Reports none; Denies ear pain, lip swelling, loss taste/smell, neck pain, otalgia or sore throat Cardiovascular Cardiovascular: Reports none; Denies abdominal pain, chest pain with activity, leg edema, lightheadedness, palpitations, rapid heart rate or syncope Respiratory/Chest Respiratory/Chest: Reports none; Denies change in mental status, dry cough, dyspnea, hemoptysis, shortness of breath at rest or shortness of breath with exertion Gastrointestinal Gastrointestinal: Reports none; Denies abdominal pain, change in stool character, diarrhea, hematemesis, hematochezia, melena, rectal bleeding or vomiting Genitourinary Genitourinary ED: Reports none; Denies abdominal discomfort, anuria, dysuria, genital pain or polyuria Musculoskeletal Musculoskeletal: Reports none; Denies arthralgias, back pain, difficulty walking, extremity pain, muscle weakness or myalgias Integumentary Reports none and other Details: Bruising and discoloration to her arms ; Denies abscess or rash Neurologic Neurologic: Reports none; Denies abnormal gait, confusion, focal weakness, frequent falls, headache(s), loss of vision, numbness, paresthesias, radicular pain, vertigo or weakness Psychiatric Psychiatric: Reports systems reviewed and no addt'l complaints, except as documented and none; Denies behavioral changes, confusion, difficulty concentrating, hallucinations, suicidal ideation, tactile hallucinations or visual hallucinations Endocrine Endocrinology: Denies none, cold intolerance, excessive sweating, fatigue or heat intolerance Hematologic/Lymphatic Hematologic/Lymphatic: Reports none; Denies anemia, easy bleeding or easy bruising Allergic/Immunologic Allergic/Immunologic ED: Denies as per HPI, none, lip swelling, mouth swelling, throat swelling, tongue swelling or hives EXAM Physical Exam Const Vital Signs: 03/08/21 14:38 03/08/21 14:44 Temperature 97.2 F L Temperature Source Temporal Pulse Rate 66 Respiratory Rate 14 Respiratory Effort Normal Non-Labored Blood Pressure 132/79 H Blood Pressure Mean 96 Pulse Ox 94 Oxygen Delivery Method Room Air Positive well nourished and well developed General Appearance ED: well developed and NAD HEENT Reports TM's clear and moist mucous membranes normocephalic and atraumatic; Negative for trauma or tenderness Tympanic Membrane ED: Yes TM's clear Eyes PERRL and EOMs intact bilaterally General Eye ED: Negative for pale conjunctiva or scleral icterus Neck no lymphadenopathy, supple and no JVD General: Negative for tenderness Chest Wall inspection of chest normal and palpation of chest normal Chest: Negative for tenderness Resp normal respiratory effort and clear to auscultation bilaterally Effort and Inspection: Negative for respiratory distress or pain with movement Auscultation: Negative for rhonchi, wheezes or diminished lung sounds Cardio regular rate, regular rhythm, S1 normal heart sound, S2 normal heart sound and no murmurs Peripheral Pulses: pulses 2+ throughout GI normal to inspection, nondistended, normoactive bowel sounds, soft to palpation, non-tender, non-distended and no masses Back/Spine no CVA tenderness and no thoracic nor lumbar tenderness Extremity normal to inspection Extremity Narrative: Patient has some ecchymosis and bruising to both upper extremities that is patchy General Extremety ED: Negative for edema General Extremity: Negative for edema Neuro oriented x3, CN's II-XII intact bilaterally, no sensory deficits noted and gait normal Sensorium / Orientation: awake, alert, oriented to person, oriented to place and oriented to time Motor Exam: strength 5/5 throughout and strength abnormal Psych mental status grossly normal Skin no rashes or lesions noted and no wounds MDM MDM MDM Narrative Medical decision making narrative: Patient has ecchymosis and bruising about both upper extremities. We were able to look up his pharmacy record and it does not appear that he is anticoagulated at this time. His bleeding times were normal. Platelet count was normal. Patient was reassured that there was no significant disease process related to this. He will follow up with his primary care physician as needed. Lab Data Labs: Laboratory Results - last 24 hr 03/08/21 03/08/21 03/08/21 15:12 15:12 15:12 WBC 9.8 RBC 3.68 L Hgb 11.7 L Hct 35.5 L MCV 96.5 H MCH 31.8 MCHC 33.0 RDW Std Deviation 49.1 H RDW Coeff of Smith 14.1 Plt Count 173 MPV 8.8 Immature Gran % (Auto) 1.100 H Neut % (Auto) 65.7 Lymph % (Auto) 21.0 [place] % (Auto) 9.1 Eos % (Auto) 2.6 Baso % (Auto) 0.5 Absolute Neuts (auto) 6.5 Absolute Lymphs (auto) 2.06 Nucleated RBC % 0 PT 12.7 INR 1.0 APTT 26.7 Sodium 141 Potassium 4.2 Chloride 111 H Carbon Dioxide 24.0 Anion Gap 6 BUN 22 H Creatinine 1.70 H Estim Creat Clear Calc 33.43 Est GFR (MDRD) Af Amer 49 L Est GFR (MDRD) Non-Af 41 L BUN/Creatinine Ratio 12.9 Glucose 109 H Calcium 9.5 Discharge Plan Triage Chief Complaint: General Illness ED Provider: Ondina Nazario Dx/Rx/DC Orders Clinical Impression: Ecchymosis Instructions: ED Soft Tissue Contusion Prescriptions: No Action Allopurinol 300 mg PO DAILY RF: 0 Aspirin 81 mg PO DAILY RF: 0 Budesonide 3 mg PO DAILY RF: 0 Furosemide 20 mg PO DAILY RF: 0 Levothyroxine 50 mcg PO DAILY RF: 0 Simvastatin 40 mg PO DAILY RF: 0 Vitamin D3 1 tab PO DAILY RF: 0 Primary Care Provider: Ethan Tubbs Referrals: Ethan Tubbs MD [Primary Care Provider] - 3-5 Days
[2021-03-08 15:21] LABS: Absolute Lymphocyte Count 2.06 X10^3/uL (0.83-4.51); Absolute Neutrophil Count 6.5 X10^3/uL (2.0-7.7); Basophil# 0.05 X10^3/uL; Basophil% 0.5 % (0-1); Eosinophil# 0.26 X10^3/uL; Eosinophils% 2.6 % (0-5); Hematocrit 35.5 % (40-54); Hemoglobin 11.7 g/dL (13.0-16.5); Lymphocyte # 2.06 X10^3/ul (0.83-4.51); Mean Corpuscular Hgb 31.8 pg (27.0-32.0); Mean Corpuscular Volume 96.5 fL (80-94); Mean Platelet Vol. 8.8 fl (6.2-12.0); Monocyte# 0.89 X10^3/uL; Monocyte% 9.1 % (0-10); NRBC Flagged by Analyzer 0 % (0-5); Neutrophil # 6.45 X10^3/uL (2.7-7.7); Neutrophil % 65.7 % (47-70); Platelet Count 173 K/mm3 (150-450); RBC Distribution Width CV 14.1 % (11.6-14.6); RBC Distribution Width SD 49.1 fl (35.1-43.9); Red Blood Count 3.68 M/mm3 (4.6-6.2); White Blood Count 9.8 K/mm3 (4.4-11.0)
[2021-03-08 15:31] LABS: Prothrombin Time (Protime)PT. 12.7 SECONDS (11.7-14.9)
[2021-03-08 15:32] LABS: Partial Thromboplast Time 26.7 Seconds (24.1-36.2)
[2021-03-08 15:41] LABS: Anion Gap 6 (5-15); BUN 22 mg/dL (7-18); BUN/Creat Ratio 12.9 RATIO (10-20); Calcium,Total 9.5 mg/dL (8.5-10.1); Chloride 111 mmol/L (98-107); EST Glomerular Filtration Rate 41 mL/min (>60); Est Glom Filt Rate - Afr Amer 49 mL/min (>60); Estimated Creatinine Clearance 33.43 ml/min; Glucose 109 mg/dL (74-106); Potassium 4.2 mmol/L (3.5-5.1); Sodium Level 141 mmol/L (136-145)
[2021-03-08 16:14] VITALS: BP 134/78; PULSE 61; RESP 8; O2SAT 98
== END 2021-03-08 16:14 | disposition home or self-care (01) ==
PROVIDERS: Emergency Provider Emergency Medicine; PCP Family Medicine
DX: S40.021A Contusion of right upper arm, initial encounter (principal); S40.022A Contusion of left upper arm, initial encounter; X58.XXXA Exposure to other specified factors, initial encounter; Y93.9 Activity, unspecified; Y92.9 Unspecified place or not applicable; I10 Essential (primary) hypertension; E78.5 Hyperlipidemia, unspecified; I27.20 Pulmonary hypertension, unspecified; I47.2 Ventricular tachycardia; I35.2 Nonrheumatic aortic (valve) stenosis with insufficiency; I48.0 Paroxysmal atrial fibrillation; I48.92 Unspecified atrial flutter; Z86.73 Personal history of transient ischemic attack (TIA), and cerebral infarction without residual deficits; Z86.711 Personal history of pulmonary embolism; Z86.718 Personal history of other venous thrombosis and embolism; Z79.82 Long term (current) use of aspirin; Z79.899 Other long term (current) drug therapy; F17.290 Nicotine dependence, other tobacco product, uncomplicated
CPT/HCPCS: 80048; 85025; 85610; 85730; 99283; A4216

== ENCOUNTER 2021-04-06 15:10 | Emergency (ER) | payer MEDICARE, OTHER, SELFPAY ==
[2021-04-06 15:11] VITALS: BP 170/83; PULSE 73; PULSE 87; RESP 18; TEMP 36.4; O2SAT 97; BMI 24.1
--- NOTE | 2021-04-06 15:27 | ED.RN ---
pt informed this nurse he is leaving, pt LWBS at 1526.
== END 2021-04-06 15:26 | disposition left against medical advice (07) ==
LOC: ED 15:53
PROVIDERS: PCP Family Medicine
DX: Z53.21 Procedure and treatment not carried out due to patient leaving prior to being seen by health care provider (principal)

== ENCOUNTER 2021-06-17 11:37 | Inpatient (IN) | payer MEDICARE, OTHER, SELFPAY ==
[2021-06-17] VITALS (15 sets, daily range): BP systolic 95–139; BP diastolic 63–93; PULSE 38–101; RESP 15–27; TEMP 36–37.1; O2SAT 92–100; BMI 20.9; BMI 21.1
--- NOTE | 2021-06-17 11:55 | EKG12_ITS ---
Test Reason : Blood Pressure : / mmHG Vent. Rate : 078 BPM Atrial Rate : 083 BPM P-R Int : 150 ms QRS Dur : 170 ms QT Int : 434 ms P-R-T Axes : 010 -89 063 degrees QTc Int : 494 ms Sinus rhythm with marked sinus arrhythmia Left axis deviation Non-specific intra-ventricular conduction block Inferior infarct , age undetermined Abnormal ECG Confirmed by RANULFO LOPEZ, ALMAZ ([id number]), copy editor MICHELLE DAMON ([id number]) on 06/20/2021 9:38:48 AM Referred By: ROSA Confirmed By:ALMAZ WINCHESTER MD
--- NOTE | 2021-06-17 11:59 | EDS_ITS ---
HPI History of Present Illness Chief Complaint: Shortness of Breath Informant: patient Onset/Context/Timing Onset: Days (2) Context: gradual Timing: Continuous Quality: Positive for Dyspnea on exertion Worsened by: Exertion Relieved by: Rest Associated Symptoms Negative for cough, rhinorrhea, ear pain, fever, sore throat or chills Narrative Narrative: Patient presents with shortness of breath that has been getting worse over the past 2 days. Patient states his breathing is worse with any exertion. Patient states it is better with rest. Patient states he feels lightheaded. Patient denies any diaphoresis. Patient denies any nausea or vomiting. Patient denies any cough. Son states the patient has been feeling weak at home. Patient's only PE risk factors a history of prostate cancer. PE Risk Factors: Positive for Cancer; Negative for OCP + Smoking + > 35, Prior DVT or PE, Recent immobilization, Recent surgery and Recent travel [facility] Medical History (Updated 06/17/21 @ 15:22 by Stacey Greer [employer]UCK MECHANIC, [employer] TRUCK MECHANIC-C) Atrial flutter with controlled response Former smoker History of complete heart block History of CVA (cerebrovascular accident) History of DVT (deep vein thrombosis) History of pulmonary embolism History of subdural hematoma Hyperlipidemia Hypertension Nonrheumatic aortic (valve) stenosis with insufficiency Paroxysmal atrial fibrillation Paroxysmal ventricular tachycardia Pulmonary hypertension Home Medications allopurinol 300 mg PO DAILY 06/17/21 [History Last Taken 06/16/21] budesonide 3 mg PO DAILY 06/17/21 [History Last Taken 06/16/21] cholecalciferol (vitamin D3) [Vitamin D3] 50 mcg PO DAILY 06/17/21 [History Last Taken 06/16/21] furosemide 20 mg PO DAILY 06/17/21 [History Last Taken 06/16/21] levothyroxine 50 mcg PO DAILY 06/17/21 [History Last Taken 06/16/21] simvastatin 40 mg PO DAILY 06/17/21 [History Last Taken 06/16/21] Allergy/AdvReac Type Severity Reaction Status Date / Time No Known Allergies Allergy Verified 06/17/21 11:42 Family History Mother , Age 51 from Sarcoidosis Sarcoidosis Father , age 79 CVA, CHF CVA (cerebral vascular accident) Congestive heart failure Sister , respiratory failure Respiratory failure Surgical History (Updated 06/17/21 @ 15:19 by Stacey Greer [employer] MECH[employer]IC, [employer] MECHANIC-C) Cardiac pacemaker in situ History of open reduction and internal fixation (ORIF) procedure S/P insertion of IVC (inferior vena caval) filter Social History (Updated 06/17/21 @ 15:19 by Stacey Greer [employer] MECH[employer]IC, [employer] TR[employer] MECHANIC-C) household members: spouse Smoking Status: Former smoker alcohol intake: never substance use type: does not use ROS ROS ED Constitutional Constitutional ED: Reports chills; Denies sweats Eyes Eyes: Denies blurry vision or diplopia ENT ENT ED: Denies rhinorrhea or sore throat Cardiovascular Cardiovascular: Denies chest pain or palpitations Respiratory/Chest Respiratory/Chest: Reports dyspnea; Denies cough Gastrointestinal Gastrointestinal: Denies nausea or vomiting Genitourinary Genitourinary ED: Denies dysuria or hematuria Musculoskeletal Musculoskeletal: Denies back pain or neck pain Integumentary Denies abscess or rash Neurologic Neurologic: Denies headache(s) or weakness Allergic/Immunologic Allergic/Immunologic ED: Denies mouth swelling or urticaria EXAM Physical Exam Const Vital Signs: 06/17/21 11:38 06/17/21 11:42 06/17/21 11:44 Temperature 97 F L 97 F L Temperature Source Temporal Temporal Pulse Rate 38 L 86 101 H Respiratory Rate 24 H 27 H Respiratory Effort Short of Breath Labored Respiratory Pattern Blood Pressure 95/63 95/63 Blood Pressure Mean 73 73 Pulse Ox 97 94 Oxygen Delivery Method Room Air Room Air Room Air 06/17/21 12:10 06/17/21 12:45 06/17/21 13:13 Temperature Temperature Source Pulse Rate 88 76 75 Respiratory Rate 20 H 23 H 23 H Respiratory Effort Respiratory Pattern Normal Blood Pressure 124/77 H Blood Pressure Mean 92 Pulse Ox 95 97 Oxygen Delivery Method Room Air Room Air 06/17/21 13:43 06/17/21 14:03 06/17/21 15:06 Temperature 96.8 F L 97.5 F L 97.5 F L Temperature Source Axillary Oral Oral Pulse Rate 83 90 80 Respiratory Rate 22 H 26 H 24 H Respiratory Effort Respiratory Pattern Blood Pressure 112/93 H 112/93 H 125/87 H Blood Pressure Mean 99 99 99 Pulse Ox 94 93 98 Oxygen Delivery Method Room Air Room Air Room Air Positive well nourished and well developed General Appearance ED: well developed HEENT Reports moist mucous membranes Neck supple and no JVD Resp Auscultation: diminished lung sounds diffuse Cardio regular rate and regular rhythm GI non-tender and non-distended Auscultation: normoactive bowel sounds Palpation: soft MDM MDM MDM Narrative Medical decision making narrative: Patient was given IV fluids here. Was obtained. On my interpretation shows a paced rhythm with a rate of 78. There is a left bundle branch block pattern noted. There are no acute ST or T wave changes. This was unchanged compared to previous EKG dated 08/19/2019. CBC shows a mild leukocytosis of 12.5. Platelets were slightly low at 142. Comprehensive metabolic profile was obtained. BUN was increased at 31 and c reatinine was increased at 2.44. These are increased from prior results. Lactate was elevated at 3.2. Portable 1 view chest x-ray was obtained. On my interpretation, lung crews are clear. There is normal cardiac silhouette. Bony thorax is normal. There is no acute process noted. Radiologist also interpreted the x-ray and agrees. Urinalysis was obtained. Leukocyte esterase was only slightly elevated at 25. There is 0-5 white blood cells and 10-25 red blood cells. Occult blood was 250. Patient was given a dose of Rocephin here. Urine cultures and blood cultures were obtained. High-sensitivity troponin was 32. Case was discussed with the hospitalist. She will admit the patient to her service. Patient and family understood and were agreeable with the plan. All questions were answered. Lab Data Attestation: I reviewed the patient's lab results. Labs: Laboratory Results - last 24 hr 06/17/21 06/17/21 06/17/21 12:40 12:40 12:40 WBC 12.5 H RBC 3.24 L Hgb 10.5 L Hct 34.6 L MCV 106.8 H MCH 32.4 H MCHC 30.3 L RDW Std Deviation 55.7 H RDW Coeff of Smith 14.4 Plt Count 142 L MPV 9.0 Immature Gran % (Auto) 1.000 H Neut % (Auto) 69.8 Lymph % (Auto) 19.8 [place] % (Auto) 6.6 Eos % (Auto) 2.4 Baso % (Auto) 0.4 Absolute Neuts (auto) 8.8 H Absolute Lymphs (auto) 2.48 Nucleated RBC % 0 Sodium 145 Potassium 3.2 L Chloride 119 H Carbon Dioxide 18.0 L Anion Gap 8 BUN 31 H Creatinine 2.44 H Estim Creat Clear Calc 20.91 Est GFR (MDRD) Af Amer 33 L Est GFR (MDRD) Non-Af 27 L BUN/Creatinine Ratio 12.7 Glucose 132 H Lactic Acid 3.2 H* Calcium 8.2 L Total Bilirubin 0.70 AST 22 ALT 22 Alkaline Phosphatase 62 Troponin I High Sens 32 Total Protein 5.8 L Albumin 2.8 L Globulin 3.0 Albumin/Globulin Ratio 0.9 Urine Color Urine Clarity Urine pH Ur Specific [place] Urine Protein Urine Glucose (UA) Urine Ketones Urine Occult Blood Urine Nitrite Urine Bilirubin Urine Urobilinogen Ur Leukocyte Esterase Urine RBC Urine WBC Ur Squamous Epith Cells Urine Bacteria Urine Mucus 06/17/21 06/17/21 13:40 15:15 WBC RBC Hgb Hct MCV MCH MCHC RDW Std Deviation RDW Coeff of Smith Plt Count MPV Immature Gran % (Auto) Neut % (Auto) Lymph % (Auto) [place] % (Auto) Eos % (Auto) Baso % (Auto) Absolute Neuts (auto) Absolute Lymphs (auto) Nucleated RBC % Sodium Potassium Chloride Carbon Dioxide Anion Gap BUN Creatinine Estim Creat Clear Calc Est GFR (MDRD) Af Amer Est GFR (MDRD) Non-Af BUN/Creatinine Ratio Glucose Lactic Acid Calcium Total Bilirubin AST ALT Alkaline Phosphatase Troponin I High Sens 33 Total Protein Albumin Globulin Albumin/Globulin Ratio Urine Color Yellow Urine Clarity Clear Urine pH 5.0 Ur Specific [place] 1.020 Urine Protein 30 H Urine Glucose (UA) Normal Urine Ketones 5 H Urine Occult Blood 250 H Urine Nitrite Negative Urine Bilirubin Negative Urine Urobilinogen Normal Ur Leukocyte Esterase 25 H Urine RBC 10-25 SEEN Urine WBC 0-5 SEEN Ur Squamous Epith Cells 0-5 SEEN Urine Bacteria RARE Urine Mucus 0 SEEN Radiography Chest X-Ray - ED: 1 View, Read by ED Physician, Read by Radiologist and Normal Diagnostic Testing: Clinical Impression(s) from Imaging Studies Chest X-Ray 06/17/21 12:40 IMPRESSION: No active disease. Electronically Signed: Maldonado Carpio MD at 13:04 EDT Tel , Service support , EKG Initial EKG: Attestation: I personally reviewed and interpreted this EKG as follows: Interpretation: No Acute Injury Pattern, Paced (78) and LBBB Prior EKG tracings: available for review Prior: Unchanged (08/19/2019) Treatment and Re-Evaluation Vital Sign Attestation:: Vital signs were reviewed prior to admission. They are stable. Discharge Plan Dx/Rx/DC Orders Clinical Impression: Acute kidney injury superimposed on chronic kidney disease, Lactic acidosis Disposition Disposition: Acute Care Hospital [facility] Discharge Date/Time: 06/17/21 15:48
[2021-06-17] MEDS: Ipratropium/Albuterol Sulfate 3 ML AMPUL.NEB INHALATION (12:10)
--- NOTE | 2021-06-17 12:40 | RAD_ITS ---
STUDY: X-RAY CHEST REASON FOR EXAM: Male, 86 years old. cough TECHNIQUE: Single AP portable view of the chest. COMPARISON: 08/19/2019 FINDINGS: Left subclavian dual-lead pacemaker which is unchanged. The lungs are clear and expanded. There is no demonstrated pleural abnormality. Normal size heart. Normal mediastinum and kumar. Normal visualized pulmonary arteries. There is atherosclerotic tortuosity of the aortic arch and descending thoracic aorta. Normal visualized thoracic spine. Normal visualized ribs, clavicles, and shoulders. There is no demonstrated abnormality of the visualized soft tissue structures of the upper abdomen. RAD/Chest 1 View (Portable) IMPRESSION: No active disease. Electronically Signed: Maldonado Carpio MD at 13:04 EDT Tel , Service support ,
[2021-06-17 12:46] LABS: Absolute Lymphocyte Count 2.48 X10^3/uL (0.83-4.51); Absolute Neutrophil Count 8.8 X10^3/uL (2.0-7.7); Basophil# 0.05 X10^3/uL; Basophil% 0.4 % (0-1); Eosinophils% 2.4 % (0-5); Hematocrit 34.6 % (40-54); Hemoglobin 10.5 g/dL (13.0-16.5); Lymphocyte # 2.48 X10^3/ul (0.83-4.51); Lymphocyte % 19.8 % (19-41); Mean Corp Hgb Conc 30.3 g/dL (32-36); Mean Corpuscular Hgb 32.4 pg (27.0-32.0); Mean Corpuscular Volume 106.8 fL (80-94); Monocyte# 0.83 X10^3/uL; Monocyte% 6.6 % (0-10); NRBC Flagged by Analyzer 0 % (0-5); Neutrophil # 8.75 X10^3/uL (2.7-7.7); Neutrophil % 69.8 % (47-70); Platelet Count 142 K/mm3 (150-450); RBC Distribution Width CV 14.4 % (11.6-14.6); RBC Distribution Width SD 55.7 fl (35.1-43.9); Red Blood Count 3.24 M/mm3 (4.6-6.2); White Blood Count 12.5 K/mm3 (4.4-11.0)
[2021-06-17 13:06] LABS: ALB/GLOB Ratio 0.9 RATIO (0.9-2.4); AST(SGOT) 22 U/L (15-37); Alanine Aminotransfer ALT/SGPT 22 U/L (16-61); Albumin, Serum 2.8 g/dL (3.2-5.0); Alkaline Phosphatase 62 U/L (45-117); Anion Gap 8 (5-15); BUN 31 mg/dL (7-18); BUN/Creat Ratio 12.7 RATIO (10-20); Calcium,Total 8.2 mg/dL (8.5-10.1); Chloride 119 mmol/L (98-107); Creatinine, Serum 2.44 mg/dL (0.70-1.30); EST Glomerular Filtration Rate 27 mL/min (>60); Est Glom Filt Rate - Afr Amer 33 mL/min (>60); Estimated Creatinine Clearance 20.91 ml/min; Glucose 132 mg/dL (74-106); Potassium 3.2 mmol/L (3.5-5.1); Protein, Total 5.8 g/dL (6.4-8.2); Sodium Level 145 mmol/L (136-145); Troponin-I HS 32 pg/mL (3.0-78.0)
[2021-06-17 13:22] LABS: Lactic Acid 3.2 mmol/L (0.4-1.9)
--- NOTE | 2021-06-17 13:27 | NURSING ---
PER LAB LACTIC ACID 3.2. HENNY ROBERT AND DR. LEE AWARE.
[2021-06-17 14:01] LABS: Mucous, Urine 0 SEEN /hpf (<or=2+)
[2021-06-17 14:04] LABS: Color, Urine Yellow (Yellow); Glucose, Dipstick Normal (Normal); Ketone-Dipstick 5 mg/dl (Negative); Leukocyte Esterase-Dipstick 25 /ul (Negative); Nitrite-Dipstick Negative (Negative); Occult Blood-Urine 250 /ul (Negative); Protein-Dipstick 30 mg/dl (Negative); Urine Bilirubin Dipstick Negative (Negative); Urine Clarity Clear (Clear); Urine Urobilinogen Normal (Normal)
[2021-06-17 14:19] LABS: Bacteria RARE /hpf (None Seen); Red Blood Cells-Urine 10-25 SEEN /hpf (0-5); Squamous Epithelial Cells - UA 0-5 SEEN /hpf (0-5); White Blood Cells 0-5 SEEN /hpf (0-5)
[2021-06-17] MEDS: Ceftriaxone 1 GM/50 ML BAG IV (14:24)
--- NOTE | 2021-06-17 14:55 | NURSING ---
DR GOLDSMITH FOR DR LEE
--- NOTE | 2021-06-17 14:55 | PCM.HP.STD ---
Documented by User: Stacey Greer NP, FLOOR NURSE-C 06/17/21 15:31 HPI - General HPI Narrative BENJAMIN MAS, is a 86 M who presents to the Emergency Room due to shortness of breath. Patient states this began over the past week. He denies any aggravating or alleviating factors. He states he sometimes feels short of breath while at rest. He denies cough, fever, chills. Denies exposure to sick contacts. Patient is a poor informant however denies other symptoms or complaints. He does state he was vaccinated for Covid with [employer]. It appears he was recently started on budesonide by his primary care provider. He is unable to tell me why this was started. He denies any recent GI issues. History of DVT/PE listed in history however patient is unable to tell me when this occurred. Unable to report how long ago subdural hematoma occurred. Patient states he lives with his who is also forgetful. Per records, patient has a past medical history of DVT/PE, pacemaker placement secondary to heart block, history of CVA, hypertension, hyperlipidemia, persistent atrial fibrillation, history of subdural hematoma, hypothyroidism, chronic kidney disease. [facility] Medical History (Updated 06/17/21 @ 15:22 by Stacey Greer NP, FLOOR NURSE-C) Atrial flutter with controlled response History of complete heart block History of CVA (cerebrovascular accident) History of DVT (deep vein thrombosis) History of pulmonary embolism History of subdural hematoma Hyperlipidemia Hypertension Nonrheumatic aortic (valve) stenosis with insufficiency Paroxysmal atrial fibrillation Paroxysmal ventricular tachycardia Pulmonary hypertension Home Medications Allopurinol 300 mg PO DAILY 11/11/20 [History Last Taken Unknown] Aspirin 81 mg PO DAILY 11/11/20 [History Last Taken Unknown] Budesonide 3 mg PO DAILY 11/11/20 [History Last Taken Unknown] Furosemide 20 mg PO DAILY 11/11/20 [History Last Taken Unknown] Levothyroxine 50 mcg PO DAILY 11/11/20 [History Last Taken Unknown] Simvastatin 40 mg PO DAILY 11/11/20 [History Last Taken Unknown] Vitamin D3 1 tab PO DAILY 11/11/20 [History Last Taken Unknown] Allergy/AdvReac Type Severity Reaction Status Date / Time No Known Allergies Allergy Verified 06/17/21 11:42 Family History Mother , Age 51 from Sarcoidosis Sarcoidosis Father , age 79 CVA, CHF CVA (cerebral vascular accident) Congestive heart failure Sister , respiratory failure Respiratory failure Surgical History (Updated 06/17/21 @ 15:19 by Stacey Greer NP, FLOOR NURSE-C) Cardiac pacemaker in situ History of open reduction and internal fixation (ORIF) procedure S/P insertion of IVC (inferior vena caval) filter Social History (Updated 06/17/21 @ 15:19 by Stacey Greer NP, FLOOR NURSE-C) household members: spouse Smoking Status: Current some day smoker tobacco type: cigars alcohol intake: never substance use type: does not use ROS Constitutional Constitutional: Reports weakness; Denies change in weight, chills, fatigue or fever(s) Cardiovascular Cardiovascular: Denies chest pain, edema, lightheadedness, palpitations or syncope Respiratory/Chest Respiratory/Chest: Reports dyspnea; Denies cough, productive cough or wheezing Gastrointestinal Gastrointestinal: Denies abdominal pain, constipation, diarrhea, nausea or vomiting Genitourinary Genitourinary: Denies burning urination, difficulty urinating, dysuria, hematuria, urinary frequency, urinary incontinence or urinary urgency Musculoskeletal Musculoskeletal: Denies back pain, joint pain or muscle weakness Integumentary Integumentary: Denies erythema, lesions, rash or wounds Neurologic Neurologic: Denies abnormal speech, confusion, dizziness, focal weakness, numbness, paresthesias, seizure-like activity or syncope Psychiatric Psychiatric: Denies anxiety or depression Hematologic/Lymphatic Hematologic/Lymphatic: Denies anemia, easy bleeding or easy bruising Allergic/Immunologic Allergic/Immunologic: Denies hives or asthma Vital Signs Vital Signs Vital Signs: 06/17/21 11:38 06/17/21 11:42 06/17/21 11:44 Temperature 97 F L 97 F L Temperature Source Temporal Temporal Pulse Rate 38 L 86 101 H Respiratory Rate 24 H 27 H Respiratory Effort Short of Breath Labored Respiratory Pattern Blood Pressure 95/63 95/63 Blood Pressure Mean 73 73 Pulse Ox 97 94 Oxygen Delivery Method Room Air Room Air Room Air 06/17/21 12:10 06/17/21 12:45 06/17/21 13:13 Temperature Temperature Source Pulse Rate 88 76 75 Respiratory Rate 20 H 23 H 23 H Respiratory Effort Respiratory Pattern Normal Blood Pressure 124/77 H Blood Pressure Mean 92 Pulse Ox 95 97 Oxygen Delivery Method Room Air Room Air 06/17/21 13:43 06/17/21 14:03 Temperature 96.8 F L 97.5 F L Temperature Source Axillary Oral Pulse Rate 83 90 Respiratory Rate 22 H 26 H Respiratory Effort Respiratory Pattern Blood Pressure 112/93 H 112/93 H Blood Pressure Mean 99 99 Pulse Ox 94 93 Oxygen Delivery Method Room Air Room Air Weight Weight: 150 lb Body Mass Index (BMI) 20.9 Physical Exam Const alert, oriented x3 and no apparent distress Constitutional Narrative: poor informant Orientation / Consciousness: awake, oriented to person, oriented to place and oriented to time HEENT normocephalic Mouth: dry mucous membranes Eyes PERRL, EOMs intact bilaterally and conjunctivae normal Neck no lymphadenopathy Resp clear to auscultation bilaterally Auscultation: diminished lung sounds Cardio Cardio Narrative: paced Peripheral Pulses: pulses 2+ throughout GI normal to inspection, nondistended, normoactive bowel sounds, non-tender and non-distended Extremity normal to inspection Skin no rashes or lesions noted Lesions: no lesions Rashes: no rashes Trauma: no lacerations or abrasions Neuro CN's II-XII intact bilaterally, no focal motor deficits, no sensory deficits noted and deep tendon reflexes 2+ bilaterally Psych mental status grossly normal and affect normal Results Lab / Micro Data Result Diagrams: 06/17/21 12:40 06/17/21 12:40 Labs: Laboratory Results - last 24 hr 06/17/21 12:40: WBC 12.5 H, RBC 3.24 L, Hgb 10.5 L, Hct 34.6 L, MCV 106.8 H, MCH 32.4 H, MCHC 30.3 L, RDW Std Deviation 55.7 H, RDW Coeff of Smith 14.4, Plt Count 142 L, MPV 9.0, Immature Gran % (Auto) 1.000 H, Neut % (Auto) 69.8, Lymph % (Auto) 19.8, [place] % (Auto) 6.6, Eos % (Auto) 2.4, Baso % (Auto) 0.4, Absolute Neuts (auto) 8.8 H, Absolute Lymphs (auto) 2.48, Nucleated RBC % 0 06/17/21 12:40: Sodium 145, Potassium 3.2 L, Chloride 119 H, Carbon Dioxide 18.0 L, Anion Gap 8, BUN 31 H, Creatinine 2.44 H, Estim Creat Clear Calc 20.91, Est GFR (MDRD) Af Amer 33 L, Est GFR (MDRD) Non-Af 27 L, BUN/Creatinine Ratio 12.7, Glucose 132 H, Calcium 8.2 L, Total Bilirubin 0.70, AST 22, ALT 22, Alkaline Phosphatase 62, Troponin I High Sens 32, Total Protein 5.8 L, Albumin 2.8 L, Globulin 3.0, Albumin/Globulin Ratio 0.9 06/17/21 12:40: Lactic Acid 3.2 H* 06/17/21 13:40: Urine Color Yellow, Urine Clarity Clear, Urine pH 5.0, Ur Specific [place] 1.020, Urine Protein 30 H, Urine Glucose (UA) Normal, Urine Ketones 5 H, Urine Occult Blood 250 H, Urine Nitrite Negative, Urine Bilirubin Negative, Urine Urobilinogen Normal, Ur Leukocyte Esterase 25 H, Urine RBC 10-25 SEEN, Urine WBC 0-5 SEEN, Ur Squamous Epith Cells 0-5 SEEN, Urine Bacteria RARE, Urine Mucus 0 SEEN Micro: Microbiology 06/17/21 11:59 Nasal Secretion SARS-CoV-2 Antigen (Rapid) - Final Radiology Impression Chest X-Ray 06/17/21 12:40 IMPRESSION: No active disease. Electronically Signed: Maldonado Carpio MD at 13:04 EDT Tel , Service support , Assessment & Plan Assessment/Plan (1) Acute kidney injury superimposed on chronic kidney disease: (2) Dyspnea: PLAN: 1. Dyspnea-unclear etiology. Covid negative. Chest x-ray unremarkable. Obtain BNP. Trend enzymes. Obtain echo. Unable to obtain CTA due to renal function. Obtain Doppler lower extremities. Viral panel. Repeat chest x-ray in a.m. following hydration. Pacemaker interrogation. Oxygen currently stable on room air. 2. Acute kidney injury on chronic kidney disease stage IIIb-IV fluids, trend BMP. 3. Lactic acidosis-possibly related to dehydration. UA unremarkable. Culture sent. Repeat per protocol. No other sepsis criteria. 4. History of DVT/PE-obtain duplex lower extremities. Not on anticoagulation. 5. History of CVA-continue aspirin, statin. 6. Hypertension-stable, hold Lasix. 7. Hyperlipidemia-continue statin. 8. Persistent atrial fibrillation, status post pacemaker placement-interrogate pacemaker. Not on anticoagulation due to history of subdural hematoma. 9. History of subdural hematoma-patient unable to state when this occurred however he states it was a long time ago. 10. Hypothyroidism-continue Synthroid regimen, check TSH. 11. Chronic macrocytic anemia-appears stable. DVT prophylaxis- heparin sc CODE STATUS: Discussed with patient, request DNR CCA no intubation. This patient was seen by GIANNI Townsend under the supervision of Dr. Duffy. Documented by User: Dr. Agata Duffy MD 06/17/21 15:34 [facility] Medical History (Updated 06/17/21 @ 15:22 by Stacey Greer NP, FLOOR NURSE-C) Atrial flutter with controlled response History of complete heart block History of CVA (cerebrovascular accident) History of DVT (deep vein thrombosis) History of pulmonary embolism History of subdural hematoma Hyperlipidemia Hypertension Nonrheumatic aortic (valve) stenosis with insufficiency Paroxysmal atrial fibrillation Paroxysmal ventricular tachycardia Pulmonary hypertension Home Medications Allopurinol 300 mg PO DAILY 11/11/20 [History Last Taken Unknown] Aspirin 81 mg PO DAILY 11/11/20 [History Last Taken Unknown] Budesonide 3 mg PO DAILY 11/11/20 [History Last Taken Unknown] Furosemide 20 mg PO DAILY 11/11/20 [History Last Taken Unknown] Levothyroxine 50 mcg PO DAILY 11/11/20 [History Last Taken Unknown] Simvastatin 40 mg PO DAILY 11/11/20 [History Last Taken Unknown] Vitamin D3 1 tab PO DAILY 11/11/20 [History Last Taken Unknown] Allergy/AdvReac Type Severity Reaction Status Date / Time No Known Allergies Allergy Verified 06/17/21 11:42 Family History Mother , Age 51 from Sarcoidosis Sarcoidosis Father , age 79 CVA, CHF CVA (cerebral vascular accident) Congestive heart failure Sister , respiratory failure Respiratory failure Surgical History (Updated 06/17/21 @ 15:19 by Stacey Greer FLOOR NURSE, FLOOR NURSE-C) Cardiac pacemaker in situ History of open reduction and internal fixation (ORIF) procedure S/P insertion of IVC (inferior vena caval) filter Social History (Updated 06/17/21 @ 15:19 by Stacey Greer FLOOR NURSE, FLOOR NURSE-C) household members: spouse Smoking Status: Current some day smoker tobacco type: cigars alcohol intake: never substance use type: does not use Results Lab / Micro Data Result Diagrams: 06/17/21 12:40 06/17/21 12:40
--- NOTE | 2021-06-17 15:17 | NURSING ---
PCU WHITE ACUTE KIDNEY INJURY, LACTIC ACIDOSIS
--- NOTE | 2021-06-17 15:27 | VDLE_ITS ---
Reason For Study: SOB RIGHT LEFT GSV is normal. GSV is normal. CFV is compressible, spontaneous, phasic, CFV is compressible, spontaneous, phasic, competent and demonstrates normal competent, and demonstrates normal augmentation. augmentation. POP V is compressible, spontaneous, phasic, FV is compressible, spontaneous, phasic, competent and demonstrates normal competent and demonstrates normal augmentation. augmentation. T/P Trunk is compressible. POP V is compressible, spontaneous, phasic, PTV is compressible. competent and demonstrates normal RT PerV is compressible. augmentation. Prox & Mid FV are compressible. T/P Trunk is compressible. PTV is compressible. Distal FV is NON-COMPRESSIBLE & DILATED C/W LT PerV is compressible. ACUTE DVT. Gastrocnemius V & Soleus V are NON- COMPRESSIBLE & DILATED C/W ACUTE DVT. Procedure This is a venous duplex using B-mode, color flow and spectral Doppler. Exam performed portable in patient room. The exam was diagnostic. A preliminary report was called and/or faxed to Snow Conklin RN & PCU. VL/Venous Duplex US - Samm Extrem Interpretation Summary Acute deep vein thrombosis is noted in the right femoral vein. Acute deep vein thrombosis is noted in the right gastrocnemius vein. Acute deep vein thrombosis is noted in the rig ht soleus vein. The remainder of the right lower extremity deep venous system is patent and andrea sible. Deep veins of the left lower extremity are patent and compressible segmentally. There is no e vidence of left lower extremity deep vein thrombosis. The great saphenous veins appear bilaterally pa tent and compressible segmentally. Ordering Physician: Agata Duffy Referring Physician: Ethan Tubbs Performed By: Radha Mckeon, ANTONYCS, RVT
[2021-06-17 15:45] LABS: Troponin-I HS 33 pg/mL (3.0-78.0)
--- NOTE | 2021-06-17 15:53 | PCS.PANDOC ---
PANDEMIC DOCUMENTATION INITIATED: Date: 04/24/2021 Time: 190
[2021-06-17 16:43] LABS: Reflex Lactate? Y
[2021-06-17] MEDS: 0.9% Normal Saline 1,000 ML 100 ML IV (16:44)
[2021-06-17 17:21] LABS: Magnesium 1.9 mg/dL (1.6-2.6)
[2021-06-17] MEDS: Potassium Chloride Oral Tablet 20 MEQ 40 MEQ PO (18:27)
[2021-06-17] MEDS: NYSTATIN 500,000 UNIT/5 ML UDC 500000 UNIT PO ×2 (18:27→21:16)
[2021-06-17 19:40] LABS: Troponin-I HS 45 pg/mL (3.0-78.0)
[2021-06-17 20:26] LABS: Procalcitonin 0.11 ng/mL (0.00-0.09); Vitamin B12 380 pg/mL (211-911)
[2021-06-17 20:55] LABS: BNP,B-Type NATRIURETIC PEPTIDE 44.1 pg/mL (0-100)
[2021-06-17] MEDS: Heparin Injection (Vial) 5,000 UNIT/ML VIAL 5000 UNIT SC (21:22)
[2021-06-17 23:16] LABS: D-Dimer Quantitative (DVT/PE) > 20.00 FEU/ug/m (0.27-0.49)
--- NOTE | 2021-06-17 23:22 | PCM.HOSP.N ---
Hospitalist Note Patient is a new admission earlier today. He has presented with dyspnea and has a history of DVT/PE. A D-dimer was obtained and resulted this evening at greater than 20. His serum creatinine is 2.44 and therefore a CTA could not be performed. Bilateral ultrasounds of his lower extremities have already been ordered and are pending for tomorrow. At this time I will place him on a heparin drip with bolus until we can get further studies. If his respiratory status is stable of VQ scan may be prudent in the future.
[2021-06-17 23:44] LABS: Partial Thromboplast Time 31.1 Seconds (24.1-36.2)
[2021-06-18] VITALS (8 sets, daily range): BP systolic 117–133; BP diastolic 64–81; PULSE 72–96; RESP 15–18; TEMP 36.6–36.8; O2SAT 96–99
[2021-06-18] MEDS: HEPARIN/D5w 25,000 UNITS 25,000 UNITS/250 ML IV.SOLN. 10 UNITS IV (00:26)
[2021-06-18] MEDS: Heparin Injection (Vial) 5,000 UNIT/ML VIAL 4500 UNIT IV (00:30)
--- NOTE | 2021-06-18 00:39 | NURSING ---
HEPARIN DRIP STARTED AT THIS TIME (0030) PER NEW ORDER RCVD FROM DR HEADLEY. D DIMER RESULTED CRITICAL VALUE OF >20. HEPARIN CURRENTLY INFUSING AT 1000 UNITS//HR PER WT BASE NOMOGRAM & BASED ON PT'S WT OF 68.8. HEPARIN BOLUS IV OF 4500 UNITS GIVEN ALSO AT THIS TIME. PTT ORDERED FOR 0630 THIS AM. BASELINE PTT NOTED AT 31.1
[2021-06-18 00:42] LABS: International Normalized Ratio 1.3; Prothrombin Time (Protime)PT. 15.5 SECONDS (11.7-14.9)
--- NOTE | 2021-06-18 00:57 | NURSING ---
NO URINE OUTPUT NOTED. PT REPORTS HE DOES NOT FEEL LIKE HE HAS TO GO. BLADDER SCANNED FOR 126ML. LOWER ABD SOFT. PT DENIES PAIN OR SOB. WILL MONITOR
[2021-06-18] MEDS: 0.9% Normal Saline 1,000 ML 100 ML IV ×3 (02:35→23:55)
--- NOTE | 2021-06-18 05:55 | EKG12_ITS ---
Test Reason : PRE-OP Blood Pressure : / mmHG Vent. Rate : 083 BPM Atrial Rate : 083 BPM P-R Int : 162 ms QRS Dur : 172 ms QT Int : 438 ms P-R-T Axes : -22 -88 077 degrees QTc Int : 514 ms Normal sinus rhythm Left axis deviation Non-specific intra-ventricular conduction block Inferior infarct , age undetermined Abnormal ECG When compared with ECG of 17-JUN-2021 11:49, MANUAL COMPARISON REQUIRED, DATA IS UNCONFIRMED Confirmed by RANULFO LOPEZ, ALMAZ ([id number]), editorial specialist MICHELLE DAMON ([id number]) on 06/22/2021 6:13:18 AM Referred By: RUPAL Confirmed By:ALMAZ WINCHESTER MD
--- NOTE | 2021-06-18 05:55 | ECHOCS_ITS ---
Reason For Study: Exertional dyspnea Procedure This was a 2D Doppler, Color Flow transthoracic echocardiogram. Contrast injection was performed. Exam performed portable in patient room. Left Ventricle Normal LV size. The estimated ejection fraction is 40 %. Stage 1 diastolic dysfunction. Apical wall motion abnormality may reflect pacemaker activation. Right Ventricle Normal RV size. ICD or pacer leads identified within the right ventricle. Normal systolic function. Atria Normal left atrium. Normal right atrium. Mitral Valve Normal mitral valve. There is mild to moderate mitral annular calcification. Mild (1+) eccentric mitral valve insufficiency. Tricuspid Valve Normal tricuspid valve. Aortic Valve Trisinus/trileaflet aortic valve. Mild (1+) aortic valve insufficiency. Pericardium/Pleural No pericardial effusion. Medication Diluted definity 3ml given slow IV push to enhance endocardial definition. MMode/2D Measurements & Calculations LVIDd: 5.8 cm IVSd: 1.5 cm LVOT diam: 2.2 cm LVIDs: 4.4 cm LVPWd: 1.0 cm LVOT area: 3.7 cm2 RVDd: 4.1 cm FS: 22.9 % Ao root diam: 3.4 cm LAV(MOD-bp): 56.8 ml LVAd ap4: 31.7 cm2 LAV(MOD-bp) Indexed: 30.3 ml/m2 LVLd ap4: 7.7 cm LAV(MOD-sp2): 66.8 ml EDV(MOD-sp4): 105.0 ml LAV(MOD-sp4): 44.3 ml EDV(sp4-el): 111.5 ml LVAs ap4: 27.3 cm2 LVLs ap4: 7.5 cm ESV(MOD-sp4): 81.3 ml ESV(sp4-el): 84.5 ml EF(MOD-sp4): 22.6 % EF(sp4-el): 24.2 % SV(MOD-sp4): 23.7 ml SV(sp4-el): 26.9 ml LA A4 area: 17.2 cm2 LA dimension(2D): 4.9 cm RA A4 area: 12.6 cm2 Doppler Measurements & Calculations MV E max lyndon: 83.2 cm/sec Lat Peak E' Lyndon: 4.6 cm/sec Med Peak E' Lyndon: 3.4 cm/sec MV A max lyndon: 114.4 cm/sec E/E' lat: 18.2 E/E' med: 24.8 MV E/A: 0.73 Ao V2 max: 248.3 cm/sec AI max lyndon: 372.3 cm/sec LV V1 max: 95.9 cm/sec Ao max P.7 mmHg AI max P.6 mmHg LV V1 max P.7 mmHg Ao V2 mean: 171.8 cm/sec LV V1 mean P.1 mmHg Ao mean P.1 mmHg AI dec slope: 132.3 cm/sec2 LV V1 mean: 69.1 cm/sec Ao V2 VTI: 51.2 cm AI P1/2t: 824.3 msec LV V1 VTI: 21.3 cm KAJAL(I,D): 1.5 cm2 KAJAL(V,D): 1.4 cm2 SV(LVOT): 78.3 ml PA V2 max: 75.1 cm/sec PI end-d lyndon: 107.9 cm/sec TR max lyndon: 234.4 cm/sec TR max P.0 mmHg ECHO/Echo Complete W/ Contrast Interpretation Summary Normal LV size. The estimated ejection fraction is 40 %. Stage 1 diastolic dysfunction. Mild (1+) aortic valve insufficiency. Mild (1+) eccentric mitral valve insufficiency. ICD or pacer leads identified within the right ventricle. Apical wall motion abnormality may reflect pacemaker activation. Compared to previous study, the left ventricular systolic function has worsened .. Ordering Physician: Agata Duffy Referring Physician: Ethan Tubbs Performed By: Hali Cabrera RDCS, RVT
--- NOTE | 2021-06-18 05:55 | RAD_ITS ---
STUDY: X-RAY CHEST REASON FOR EXAM: Male, 86 years old. Dyspnea TECHNIQUE: Single AP portable view of the chest. COMPARISON: 06/17/2021 FINDINGS: Left subclavian dual-lead pacemaker which is unchanged. The lungs are clear and expanded. There is no demonstrated pleural abnormality. Normal size heart. Normal mediastinum and kumar. Normal visualized pulmonary arteries. Normal visualized aortic arch and descending thoracic aorta. Normal visualized thoracic spine. Normal visualized ribs, clavicles, and shoulders. There is no demonstrated abnormality of the visualized soft tissue structures of the upper abdomen. RAD/Chest 1 View (Portable) IMPRESSION: No active disease. Electronically Signed: Maldonado Carpio MD at 7:58 EDT Tel , Service support ,
[2021-06-18 06:30] LABS: Absolute Lymphocyte Count 1.63 X10^3/uL (0.83-4.51); Absolute Neutrophil Count 6.3 X10^3/uL (2.0-7.7); Basophil# 0.06 X10^3/uL; Basophil% 0.6 % (0-1); Eosinophil# 0.45 X10^3/uL; Eosinophils% 4.8 % (0-5); Hematocrit 32.9 % (40-54); Hemoglobin 10.8 g/dL (13.0-16.5); Lymphocyte # 1.63 X10^3/ul (0.83-4.51); Lymphocyte % 17.2 % (19-41); Mean Corp Hgb Conc 32.8 g/dL (32-36); Mean Corpuscular Hgb 32.2 pg (27.0-32.0); Mean Corpuscular Volume 98.2 fL (80-94); Mean Platelet Vol. 9.4 fl (6.2-12.0); Monocyte# 0.93 X10^3/uL; Monocyte% 9.8 % (0-10); NRBC Flagged by Analyzer 0 % (0-5); Neutrophil # 6.28 X10^3/uL (2.7-7.7); Neutrophil % 66.5 % (47-70); Platelet Count 145 K/mm3 (150-450); RBC Distribution Width CV 14.5 % (11.6-14.6); RBC Distribution Width SD 51.4 fl (35.1-43.9); Red Blood Count 3.35 M/mm3 (4.6-6.2); White Blood Count 9.5 K/mm3 (4.4-11.0)
[2021-06-18 06:40] LABS: Partial Thromboplast Time 136.5 Seconds (24.1-36.2)
[2021-06-18] MEDS: Levothyroxine 50 MCG Tablet PO (07:07)
[2021-06-18 07:14] LABS: ALB/GLOB Ratio 0.9 RATIO (0.9-2.4); AST(SGOT) 24 U/L (15-37); Alanine Aminotransfer ALT/SGPT 22 U/L (16-61); Albumin, Serum 2.9 g/dL (3.2-5.0); Alkaline Phosphatase 65 U/L (45-117); Anion Gap 9 (5-15); BUN 38 mg/dL (7-18); BUN/Creat Ratio 13.9 RATIO (10-20); Calcium,Total 9.2 mg/dL (8.5-10.1); Chloride 113 mmol/L (98-107); Creatinine, Serum 2.74 mg/dL (0.70-1.30); EST Glomerular Filtration Rate 24 mL/min (>60); Est Glom Filt Rate - Afr Amer 29 mL/min (>60); Estimated Creatinine Clearance 18.83 ml/min; Globulin 3.3 g/dL (2.2-4.2); Glucose 109 mg/dL (74-106); Potassium 4.3 mmol/L (3.5-5.1); Protein, Total 6.2 g/dL (6.4-8.2); Sodium Level 141 mmol/L (136-145); T4 Free Direct 1.18 ng/dL (0.76-1.46); Thyroid Stim Hormone (TSH) 1.93 uIU/mL (0.358-3.74)
[2021-06-18] MEDS: Allopurinol 300 MG Tablet PO (07:54)
[2021-06-18] MEDS: Aspirin 81 MG TAB.CHEW PO (07:54)
[2021-06-18] MEDS: Atorvastatin Calcium 20 MG Tablet PO (09:20)
[2021-06-18] MEDS: Ceftriaxone 1 GM/50 ML BAG IV (09:20)
[2021-06-18] MEDS: NYSTATIN 500,000 UNIT/5 ML UDC 500000 UNIT PO ×3 (09:20→17:08)
--- NOTE | 2021-06-18 12:10 | PCM.PN.HOSP ---
Documented by User: Stacey Greer NP, MANAGER SUSTAINABILITY-C 06/18/21 12:27 Subjective Subjective Patient seen and examined. Denies shortness of breath currently however does report ongoing intermittent shortness of breath. Lower extremity ultrasound positive for right lower extremity DVT. He denies other current symptoms or complaints. Objective Data Objective Data Vital Signs: Vital Signs Temp Pulse Resp BP Pulse Ox 97.8 F 76 16 117/64 99 06/18/21 07:38 06/18/21 08:08 06/18/21 07:38 06/18/21 07:38 06/18/21 07:38 Oxygen Delivery Method Room Air Weight: 157 lb 3.033 oz Body Mass Index (BMI) 21.1 Intake & Output: Intake and Output for Last 24 Hours 06/16/21 06/17/21 06/18/21 23:59 23:59 23:59 Intake Total 1290 / 1390 1201.67 / 1201.67 Output Total 0 / 0 Balance 1290 / 1390 1201.67 / 1201.67 Lab / Micro Data Result Diagrams: 06/18/21 06:14 06/18/21 06:14 Labs: Laboratory Results - last 24 hr 06/17/21 12:40: WBC 12.5 H, RBC 3.24 L, Hgb 10.5 L, Hct 34.6 L, MCV 106.8 H, MCH 32.4 H, MCHC 30.3 L, RDW Std Deviation 55.7 H, RDW Coeff of Smith 14.4, Plt Count 142 L, MPV 9.0, Immature Gran % (Auto) 1.000 H, Neut % (Auto) 69.8, Lymph % (Auto) 19.8, [place] % (Auto) 6.6, Eos % (Auto) 2.4, Baso % (Auto) 0.4, Absolute Neuts (auto) 8.8 H, Absolute Lymphs (auto) 2.48, Nucleated RBC % 0 06/17/21 12:40: Sodium 145, Potassium 3.2 L, Chloride 119 H, Carbon Dioxide 18.0 L, Anion Gap 8, BUN 31 H, Creatinine 2.44 H, Estim Creat Clear Calc 20.91, Est GFR (MDRD) Af Amer 33 L, Est GFR (MDRD) Non-Af 27 L, BUN/Creatinine Ratio 12.7, Glucose 132 H, Calcium 8.2 L, Total Bilirubin 0.70, AST 22, ALT 22, Alkaline Phosphatase 62, Troponin I High Sens 32, Total Protein 5.8 L, Albumin 2.8 L, Globulin 3.0, Albumin/Globulin Ratio 0.9 06/17/21 12:40: Lactic Acid 3.2 H* 06/17/21 12:40: B-Natriuretic Peptide 44.1 06/17/21 13:40: Urine Color Yellow, Urine Clarity Clear, Urine pH 5.0, Ur Specific [place] 1.020, Urine Protein 30 H, Urine Glucose (UA) Normal, Urine Ketones 5 H, Urine Occult Blood 250 H, Urine Nitrite Negative, Urine Bilirubin Negative, Urine Urobilinogen Normal, Ur Leukocyte Esterase 25 H, Urine RBC 10-25 SEEN, Urine WBC 0-5 SEEN, Ur Squamous Epith Cells 0-5 SEEN, Urine Bacteria RARE, Urine Mucus 0 SEEN 06/17/21 15:15: Troponin I High Sens 33 06/17/21 15:15: Magnesium 1.9, Folate 16.20 06/17/21 17:12: Vitamin B12 380, Procalcitonin 0.11 H 06/17/21 17:12: Lactic Acid 3.0 H* 06/17/21 19:13: Troponin I High Sens 45 06/17/21 21:44: D-Dimer Quant (PE/DVT) > 20.00 H* 06/17/21 21:44: APTT 31.1 06/18/21 00:20: PT 15.5 H, INR 1.3 06/18/21 06:14: WBC 9.5, RBC 3.35 L, Hgb 10.8 L, Hct 32.9 L, MCV 98.2 H D, MCH 32.2 H, MCHC 32.8 D, RDW Std Deviation 51.4 H, RDW Coeff of Smith 14.5, Plt Count 145 L, MPV 9.4, Immature Gran % (Auto) 1.100 H, Neut % (Auto) 66.5, Lymph % (Auto) 17.2 L, [place] % (Auto) 9.8, Eos % (Auto) 4.8, Baso % (Auto) 0.6, Absolute Neuts (auto) 6.3, Absolute Lymphs (auto) 1.63, Nucleated RBC % 0 06/18/21 06:14: Sodium 141, Potassium 4.3, Chloride 113 H, Carbon Dioxide 19.0 L, Anion Gap 9, BUN 38 H, Creatinine 2.74 H, Estim Creat Clear Calc 18.83, Est GFR (MDRD) Af Amer 29 L, Est GFR (MDRD) Non-Af 24 L, BUN/Creatinine Ratio 13.9, Glucose 109 H, Calcium 9.2, Total Bilirubin 0.50, AST 24, ALT 22, Alkaline Phosphatase 65, Total Protein 6.2 L, Albumin 2.9 L, Globulin 3.3, Albumin/Globulin Ratio 0.9, TSH 1.93, Free T4 1.18 06/18/21 06:14: APTT 136.5 H* Micro: Microbiology 06/17/21 13:40 Urine, Catheterized Urine Culture - Preliminary Culture exhibits no growth. 06/17/21 20:15 Mucosa - Nasopharyngeal Respiratory Panel (PCR) - Final 06/17/21 11:59 Nasal Secretion SARS-CoV-2 Antigen (Rapid) - Final Radiography Diagnostic Testing: Radiology Impression Chest X-Ray 06/17/21 12:40 IMPRESSION: No active disease. Electronically Signed: Maldonado Carpio MD at 13:04 EDT Tel , Service support , Chest X-Ray 06/18/21 05:55 IMPRESSION: No active disease. Electronically Signed: Maldonado Carpio MD at 7:58 EDT Tel , Service support , Physical Exam Const alert, oriented x3 and no apparent distress Orientation / Consciousness: awake, oriented to person, oriented to place and oriented to time HEENT normocephalic and moist oral mucous membranes Eyes PERRL, EOMs intact bilaterally and conjunctivae normal Neck no lymphadenopathy Resp clear to auscultation bilaterally Auscultation: diminished lung sounds Cardio regular rate, regular rhythm and no murmurs Peripheral Pulses: pulses 2+ throughout GI normal to inspection, nondistended, normoactive bowel sounds, non-tender and non-distended Extremity normal to inspection Skin no rashes or lesions noted Lesions: no lesions Rashes: no rashes Trauma: no lacerations or abrasions Neuro CN's II-XII intact bilaterally, no focal motor deficits, no sensory deficits noted and deep tendon reflexes 2+ bilaterally Psych mental status grossly normal and affect normal Assessment & Plan Assessment/Plan (1) Acute kidney injury superimposed on chronic kidney disease: (2) Dyspnea: PLAN: 1. Acute DVT/PE-patient presented with dyspnea. History of DVT/PE. D-dimer greater than 20. Unable to obtain CTA due to renal function. Duplex ultrasound lower extremity positive for DVT on the right. Placed on heparin drip, plan for transition to oral anticoagulation at discharge. 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 Oxygen currently stable on room air. Will not proceed with VQ scan as patient has known DVT and likely PE, will be treated with anticoagulation regardless. 2. Acute kidney injury on chronic kidney disease stage IIIb-IV fluids, creatinine slightly increased. Lasix on hold. Check for urinary retention. Urine studies, renal ultrasound. Trend BMP. If no improvement, consider nephrology consult. 3. Lactic acidosis-suspect related to dehydration. UA unremarkable. Urine culture with no growth. Chest x-ray and viral panel negative. 4. Chronic macrocytic anemia-appears stable. 5. History of CVA-continue aspirin, statin. 6. Hypertension-stable, hold Lasix. 7. Hyperlipidemia-continue statin. 8. Persistent atrial fibrillation, status post pacemaker placement-Not previously on anticoagulation due to history of subdural hematoma. 9. History of subdural hematoma-patient unable to state when this occurred however he states it was a long time ago. 10. Hypothyroidism-continue Synthroid regimen. TSH normal. 11. History of gout-dose of allopurinol reduced due to renal function. DVT prophylaxis- heparin gtt This patient was seen by GIANNI Townsend under the supervision of Dr. Barnhart. Documented by User: Dr. Juan A Barnhart MD 10/10/21 13:13 Objective Data Lab / Micro Data Result Diagrams: 06/18/21 06:14 06/18/21 06:14 Assessment & Plan Addt'l Comments This patient was seen in conjunction with GIANNI Townsend . I have independently interviewed and examined the patient and reviewed pertinent historical, laboratory, and other data. Please refer to GIANNI Townsend note for details of this patient's presentation, findings, and recommendations. I have reviewed GIANNI Townsend note and concur with documented findings. In brief, patient is an 86-year-old gentleman with past medical history segment for VTE who presented with exertional dyspnea with elevated D-dimer Physical Examination: GENERAL: cooperative HEENT: Atraumatic; EYES; Anicteric, Normal Conjunctiva NECK; supple, normal thyroid, RESPIRATORY: Diminished to auscultation CARDIOVASCULAR: Regular S1 S2, GI: soft, normoactive bowel sounds, : No Renal angle tenderness; EXTREMITIES: No edema, no clubbing, MUSCULOSKELETAL: no muscle waisting NEURO: Awake; no lateralizing signs. SKIN: No Rash PSYCH; Flat affect Assessment: 1. Exertional dyspnea with elevated D-dimer with high suspicion for pulmonary embolism 2. Lower extremity DVT 3. Suspected cystitis 4. Acute kidney injury superimposed on chronic kidney disease stage IIIb 5. History of CVA 6. Dyslipidemia 7. Essential hypertension 8. Paroxysmal A. fib 9. Pulmonary hypertension 10. Hypothyroidism Recommendations: 1. I have discussed the results of my overview and impressions with the patient 2. Options for management were reviewed Charges/Coding Visit Charges Inpatient E&M: 52402 Subs Hosp L3
--- NOTE | 2021-06-18 12:27 | US_ITS ---
STUDY: RENAL ULTRASOUND - COMPLETE REASON FOR EXAM: Male, 86 years old. acute renal failure TECHNIQUE: Ultrasound evaluation of the kidneys was performed with real-time and static vidal-scale imaging. COMPARISON: None. FINDINGS: RIGHT KIDNEY: Normal location of the right kidney, which is normal in size. The right kidney measures 10.6 x 5.9 cm. There is a normal cortex of the right kidney. The renal cortex measures 1.3 cm. Cyst visualized. These measure 33 x 32 mm in 14 x 9 mm. There are no right renal calculi. There is no right hydronephrosis. DISTAL RIGHT URETER: There is non-visualization of the distal right ureter. There is no demonstrated right ureterovesical junction calculus. There is a visualized right ureteral jet. LEFT KIDNEY: Normal location of the left kidney, which is normal in size. The left kidney measures 10.9 x 5.5 cm. There is a normal cortex of the left kidney. The renal cortex measures 1.6 cm. 2 cyst visualized. These measure 32 x 26 mm and 14 x 11 mm. There are no left renal calculi. There is no left hydronephrosis. DISTAL LEFT URETER: There is non-visualization of the distal left ureter. There is no demonstrated left ureterovesical junction calculus. There is a visualized left ureteral jet. AORTA: There is obscuration of the abdominal aorta by overlying bowel gas I.V.C.: The IVC is obscured. BLADDER: The distended urinary bladder has a volume of 122 ml. Urinary bladder diverticulum visualized measuring 12 x 14 mm. There is no demonstrated mass within the urinary bladder. There are no demonstrated bladder calculi. US/Kidney and Bladder IMPRESSION: Bilateral renal cysts. Urinary bladder diverticulum. Electronically Signed: Anthony Quintana MD at 18:35 EDT , Service support ,
[2021-06-18 16:06] LABS: Partial Thromboplast Time 57.9 Seconds (24.1-36.2)
[2021-06-19] VITALS (11 sets, daily range): BP systolic 109–132; BP diastolic 54–74; PULSE 62–88; RESP 14–18; TEMP 36.5–36.7; O2SAT 94–99
[2021-06-19 01:54] LABS: Urine Sodium 42 mmol/L (Not Establ.)
[2021-06-19] MEDS: HEPARIN/D5w 25,000 UNITS 25,000 UNITS/250 ML IV.SOLN. 7 UNITS IV (04:45)
[2021-06-19] MEDS: Levothyroxine 50 MCG Tablet PO (04:47)
[2021-06-19 07:29] LABS: Absolute Lymphocyte Count 1.38 X10^3/uL (0.83-4.51); Absolute Neutrophil Count 4.6 X10^3/uL (2.0-7.7); Basophil# 0.03 X10^3/uL; Basophil% 0.4 % (0-1); Eosinophil# 0.48 X10^3/uL; Eosinophils% 6.5 % (0-5); Hemoglobin 9.8 g/dL (13.0-16.5); Lymphocyte # 1.38 X10^3/ul (0.83-4.51); Lymphocyte % 18.8 % (19-41); Mean Corp Hgb Conc 32.7 g/dL (32-36); Mean Platelet Vol. 9.6 fl (6.2-12.0); Monocyte# 0.79 X10^3/uL; Monocyte% 10.8 % (0-10); NRBC Flagged by Analyzer 0 % (0-5); Neutrophil # 4.57 X10^3/uL (2.7-7.7); Neutrophil % 62.3 % (47-70); Platelet Count 141 K/mm3 (150-450); RBC Distribution Width CV 14.5 % (11.6-14.6); RBC Distribution Width SD 51.4 fl (35.1-43.9); Red Blood Count 3.06 M/mm3 (4.6-6.2); White Blood Count 7.3 K/mm3 (4.4-11.0)
[2021-06-19 08:01] LABS: Anion Gap 10 (5-15); BUN 35 mg/dL (7-18); BUN/Creat Ratio 14.6 RATIO (10-20); Calcium,Total 8.9 mg/dL (8.5-10.1); Chloride 113 mmol/L (98-107); EST Glomerular Filtration Rate 27 mL/min (>60); Est Glom Filt Rate - Afr Amer 33 mL/min (>60); Estimated Creatinine Clearance 23.31 ml/min; Glucose 88 mg/dL (74-106); Potassium 4.1 mmol/L (3.5-5.1); Sodium Level 141 mmol/L (136-145)
[2021-06-19] MEDS: NYSTATIN 500,000 UNIT/5 ML UDC 500000 UNIT PO ×3 (09:03→22:28)
[2021-06-19] MEDS: Allopurinol 100 MG Tablet PO (09:03)
[2021-06-19] MEDS: Atorvastatin Calcium 20 MG Tablet PO (09:03)
[2021-06-19] MEDS: Aspirin 81 MG TAB.CHEW PO (09:03)
[2021-06-19] MEDS: 0.9% Normal Saline 1,000 ML 100 ML IV ×2 (09:03→22:25)
--- NOTE | 2021-06-19 11:10 | CASEMGMT ---
RN CM Face to Face with patient for initial transition planning/care coordination assessment. RN CM introduced self and role at [facility]. Patient lying in bed, alert and oriented. Patient willing to participate in assessment and is able to answer all questions appropriately. Care providers, pharmacy, and demographics verified. Patient wishes to discharge home, denies need for home health at this time. Patient states he has no further needs or concerns at this time. CM to follow for discharge planning needs that may arise. PCP: Arley Specialists: none [facility] Pres[facility] Benefit: yes Living Will/HPOA: yes, son Donald Cole LNOK: , son Living Arrangements: Patient lives with and granddaughter in a 2 story home. Patient states he is independent and able to ambulate stairs. Transportation: self, granddaughter, son DME/HHC: Patient states he has walker at home. Patient denies previous HHC. Disposition Plan: Patient to discharge home with family support and follow-up plans in place. Kiley HORTA, RN, CM
--- NOTE | 2021-06-19 13:59 | CASEMGMT ---
CHRISTIANO received a call from CHRISTIANO Cooper with home health, she states that pt's son has been working on getting pt and into assisted living. SW spoke w/[employer], she spoke w/pt, pt states is confused, okay to call son Donald. CHRISTIANO called Donald, spoke w/him about discharge plan. He confirms his one brother is coming to [facility] and they have an appointment on Saturday at [facility] to look at the facility for both pt and . Son acknowledges that pt and are having a difficult time managing at home. (Pt's niece is staying w/the at present). He states pt is not eating, sits on couch and does not do much, has poor hygiene. CHRISTIANO spoke w/Donald about pt going to a usp to build up strength before going to an assisted living. Donald is in agreement w/this plan. CHIRSTIANO explained did review POA and pt's son Kareem is listed as first. Donald does state they are all on the same page, CHRISTIANO explained will call Kareem just to make sure he is okay w/CHRISTIANO speaking w/Donadl about the plans. Donald also confirmed that the son coming to [facility] to look at [facility] is Kareem. As per Donald the children are in agreement with trying to help their parents. CHRISTIANO explained will also email Donald a list of [place] [facility] facilities, asked him to share it w/the other sons and let SW know 2-3 choices of usp. CHRISTIANO also did review the Medicare SNF coverage w/Donald. List of [facility] facilities emailed ot Donald. CHRISTIANO then called julianna Serna([phone]), reviewed with him also the plan for pt. He is fine with CHRISTIANO speaking w/son Donald. Kareem states he is flying in from [place] evening and they are going to look at [facility] in [place] Saturday. He states that pt seems willing to go to assisted living, pt's is not as willing. He states pt's has Alzheimer's, states physically is well but is struggling mentally. He states she has refused AL in the past and the pt goes along with what he wants. He states that CHRISTIANO explained emailed Donald usp list for [facility], will send one for [facility] as well. CHRISTIANO offered support to julianna Serna. CHRISTIANO emailed [facility] SNF list to Donald as well. SW will make referral to SNFs of family's choice once it is communicated back to this SW. JAMAICA Mayberry
--- NOTE | 2021-06-19 14:47 | NURSING ---
This RN reviewed SN charting.
--- NOTE | 2021-06-19 14:52 | PN.HOSP_ITS ---
Documented by User: Stacey Greer NP, CORPORATE COMPLIANCE DIRECTOR-C 06/19/21 15:07 Subjective Subjective Patient seen and examined. Denies new symptoms or complaints. Denies significant shortness of breath. Patient's son has been attempting to get patient and patient's in assisted living due to declining function at home and worsening confusion/forgetfulness. Patient and family amenable to SNF at discharge for rehab. Objective Data Objective Data Vital Signs: Vital Signs Temp Pulse Resp BP Pulse Ox 97.9 F 67 16 109/54 L 95 06/19/21 10:57 06/19/21 10:58 06/19/21 10:57 06/19/21 10:57 06/19/21 11:41 Oxygen Delivery Method Room Air Weight: 164 lb 7.437 oz Body Mass Index (BMI) 21.1 Intake & Output: Intake and Output for Last 24 Hours 06/17/21 06/18/21 06/19/21 23:59 23:59 23:59 Intake Total 1290 / 1390 3283.34 / 3283.34 964.08 / 964.08 Output Total 0 / 0 Balance 1290 / 1390 3283.34 / 3283.34 964.08 / 964.08 Lab / Micro Data Result Diagrams: 06/20/21 06:35 06/20/21 06:35 Labs: Laboratory Results - last 24 hr 06/18/21 15:30: APTT 57.9 H 06/18/21 21:21: APTT 67.0 H 06/19/21 01:20: Ur Random Sodium 42, Urine Creatinine 113.00 06/19/21 06:00: WBC 7.3, RBC 3.06 L, Hgb 9.8 L, Hct 30.0 L, MCV 98.0 H, MCH 32.0, MCHC 32.7, RDW Std Deviation 51.4 H, RDW Coeff of Smith 14.5, Plt Count 141 L, MPV 9.6, Immature Gran % (Auto) 1.200 H, Neut % (Auto) 62.3, Lymph % (Auto) 18.8 L, [place] % (Auto) 10.8 H, Eos % (Auto) 6.5 H, Baso % (Auto) 0.4, Absolute Neuts (auto) 4.6, Absolute Lymphs (auto) 1.38, Nucleated RBC % 0 06/19/21 06:00: Sodium 141, Potassium 4.1, Chloride 113 H, Carbon Dioxide 18.0 L , Anion Gap 10, BUN 35 H, Creatinine 2.40 H, Estim Creat Clear Calc 23.31, Est GFR (MDRD) Af Amer 33 L, Est GFR (MDRD) Non-Af 27 L, BUN/Creatinine Ratio 14.6, Glucose 88, Calcium 8.9 06/19/21 06:00: APTT 71.0 H Micro: Microbiology 06/17/21 14:10 Blood Culture (Wb) - Left Hand Blood Culture - Preliminary No growth in 48 hours. 06/17/21 14:10 Blood Culture (Wb) - Anticubital Left Blood Culture - Preliminary No growth in 48 hours. 06/19/21 01:20 Urine, Clean Catch Legionella Antigen - Final 06/19/21 01:20 Urine, Clean Catch Streptococcus pneumoniae Antigen (M - Final 06/17/21 13:40 Urine, Catheterized Urine Culture - Preliminary Culture exhibits no growth. 06/17/21 20:15 Mucosa - Nasopharyngeal Respiratory Panel (PCR) - Final 06/17/21 11:59 Nasal Secretion SARS-CoV-2 Antigen (Rapid) - Final Radiography Diagnostic Testing: Radiology Impression Venous Doppler Study 06/17/21 15:27 Interpretation Summary Acute deep vein thrombosis is noted in the right femoral vein. Acute deep vein t hrombosis is noted in the right gastrocnemius vein. Acute deep vein thrombosis is noted in the right soleus vein. The remainder of the right lower extremity deep venous system is patent and compressible. Deep veins of the left lower extremity are patent and compressible segmentally. There is no evidence of left lower extremity deep vein thrombosis. The great saphenous veins appear bilaterally patent and compressible segmentally. Ordering Physician: Agata Duffy Referring Physician: Ethan Tubbs Performed By: MikeRadha mcmahon RDCS, RVT Echocardiogram 06/18/21 05:55 Interpretation Summary Normal LV size. The estimated ejection fraction is 40 %. Stage 1 diastolic dysfunction. Mild (1+) aortic valve insufficiency. Mild (1+) eccentric mitral valve insufficiency. ICD or pacer leads identified within the right ventricle. Apical wall motion abnormality may reflect pacemaker activation. Compared to previous study, the left ventricular systolic function has worsened.. Ordering Physician: Agata Duffy Referring Physician: Ethan Tubbs Performed By: Hali Cabrera RDCS, RVT Physical Exam Const alert and no apparent distress Orientation / Consciousness: awake, oriented to person, oriented to place and oriented to time HEENT normocephalic and moist oral mucous membranes Eyes PERRL, EOMs intact bilaterally and conjunctivae normal Neck no lymphadenopathy Resp clear to auscultation bilaterally Auscultation: diminished lung sounds Cardio regular rate, regular rhythm and no murmurs Peripheral Pulses: pulses 2+ throughout GI normal to inspection, nondistended, normoactive bowel sounds, non-tender and non-distended Extremity normal to inspection Skin no rashes or lesions noted Lesions: no lesions Rashes: no rashes Trauma: no lacerations or abrasions Neuro CN's II-XII intact bilaterally, no focal motor deficits, no sensory deficits noted and deep tendon reflexes 2+ bilaterally Psych mental status grossly normal and affect normal Assessment & Plan Assessment/Plan (1) Acute kidney injury superimposed on chronic kidney disease: PLAN: 1. Acute DVT/PE-patient presented with dyspnea. History of DVT/PE. D-dimer greater than 20. Unable to obtain CTA due to renal function. Duplex ultrasound lower extremity positive for DVT on the right. Initially placed on heparin drip, transition to Eliquis 2.5 mg twice daily. 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 Oxygen currently stable on room air. Will not proceed with VQ scan as patient has known DVT and likely PE, will be treated with anticoagulation regardless. Echocardiogram demonstrates an EF of 40%, stage I diastolic dysfunction. 2. Acute kidney injury on chronic kidney disease stage IIIb- Lasix on hold. Post void residuals without evidence of urinary retention. Renal ultrasound completed, report pending. Urine studies ordered, FENa 0.6%, pre-renal. IV fluids, trend BMP. 3. Lactic acidosis-suspect related to dehydration. UA unremarkable. Urine culture with no growth. Chest x-ray and viral panel negative. 4. Chronic macrocytic anemia-appears stable. 5. History of CVA-continue aspirin, statin. 6. Hypertension-stable, hold Lasix. 7. Hyperlipidemia-continue statin. 8. Persistent atrial fibrillation, status post pacemaker placement-Not previously on anticoagulation due to history of subdural hematoma. 9. History of subdural hematoma-patient unable to state when this occurred however he states it was a long time ago. 10. Hypothyroidism-continue Synthroid regimen. TSH normal. 11. History of gout-dose of allopurinol reduced due to renal function. DVT prophylaxis-Eliquis Discharge planning: SNF pending acceptance. This patient was seen by GIANNI Townsend under the supervision of Dr. Mcfarland. Documented by User: Dr. Corina Mcfarland MD 06/20/21 10:10 Objective Data Lab / Micro Data Result Diagrams: 06/20/21 06:35 06/20/21 06:35 Charges/Coding Addendum Addendum: This patient was seen in conjunction with Stacey Greer. I have independently interviewed and examined the patient and reviewed pertinent historical, laboratory, and other data. I have reviewed her note and concur with her documentation Patient was seen and examined. No new complaints. Not on oxygen. Physical Exam: Gen: Appeared comfortable, not pale, not jaundiced CVS:HS I +II, regular, no murmurs RESP:CTA GI: BS present and normal, soft, nontender, no palpable organs EXT:No edema ASSESSMENT: 1. Acute DVT/PE 2. JASWINDER on CKD stage IIIb 3. Lactic acidosis 4. Chronic anemia 5. Hypertension 6. Hyperlipidemia 7. Persistent atrial fibrillation status post pacemaker 8. History of CVA Plan: Continue gentle IV fluids Repeat blood work in a.m. Discharge planning to SNF Visit Charges Inpatient E&M: 42570 Subs Hosp L2
[2021-06-19] MEDS: MELATONIN 3 MG TABLET PO (22:27)
[2021-06-19] MEDS: APIXABAN 2.5 MG TABLET PO (22:28)
[2021-06-20] VITALS (7 sets, daily range): BP systolic 124–132; BP diastolic 53–89; PULSE 62–77; RESP 15–16; TEMP 36.8–37.1; O2SAT 94–96
[2021-06-20] MEDS: Levothyroxine 50 MCG Tablet PO (06:00)
[2021-06-20] MEDS: 0.9% Normal Saline 1,000 ML 100 ML IV ×2 (06:09→12:46)
[2021-06-20 07:09] LABS: Absolute Lymphocyte Count 1.29 X10^3/uL (0.83-4.51); Absolute Neutrophil Count 4.8 X10^3/uL (2.0-7.7); Basophil# 0.03 X10^3/uL; Basophil% 0.4 % (0-1); Eosinophil# 0.41 X10^3/uL; Eosinophils% 5.6 % (0-5); Hematocrit 28.9 % (40-54); Hemoglobin 9.4 g/dL (13.0-16.5); Lymphocyte # 1.29 X10^3/ul (0.83-4.51); Lymphocyte % 17.7 % (19-41); Mean Corp Hgb Conc 32.5 g/dL (32-36); Mean Corpuscular Hgb 32.8 pg (27.0-32.0); Mean Corpuscular Volume 100.7 fL (80-94); Monocyte# 0.71 X10^3/uL; Monocyte% 9.7 % (0-10); NRBC Flagged by Analyzer 0 % (0-5); Neutrophil # 4.76 X10^3/uL (2.7-7.7); Neutrophil % 65.4 % (47-70); Platelet Count 134 K/mm3 (150-450); RBC Distribution Width CV 14.6 % (11.6-14.6); RBC Distribution Width SD 53.1 fl (35.1-43.9); Red Blood Count 2.87 M/mm3 (4.6-6.2); White Blood Count 7.3 K/mm3 (4.4-11.0)
[2021-06-20 07:43] LABS: Anion Gap 9 (5-15); BUN 33 mg/dL (7-18); BUN/Creat Ratio 14.6 RATIO (10-20); Calcium,Total 8.6 mg/dL (8.5-10.1); Chloride 114 mmol/L (98-107); Creatinine, Serum 2.26 mg/dL (0.70-1.30); EST Glomerular Filtration Rate 29 mL/min (>60); Est Glom Filt Rate - Afr Amer 36 mL/min (>60); Estimated Creatinine Clearance 24.99 ml/min; Glucose 86 mg/dL (74-106); Potassium 4.2 mmol/L (3.5-5.1); Sodium Level 142 mmol/L (136-145)
[2021-06-20] MEDS: Allopurinol 100 MG Tablet PO (08:15)
[2021-06-20] MEDS: Atorvastatin Calcium 20 MG Tablet PO (08:15)
[2021-06-20] MEDS: APIXABAN 2.5 MG TABLET PO (08:15)
[2021-06-20] MEDS: NYSTATIN 500,000 UNIT/5 ML UDC 500000 UNIT PO ×2 (08:15→12:48)
[2021-06-20] MEDS: Aspirin 81 MG TAB.CHEW PO (08:15)
--- NOTE | 2021-06-20 11:05 | CASEMGMT ---
CHRISTIANO called patient's son, Donald to see if they have decided on any facilities. He said he and his brother are looking over the list now. CHRISTIANO gave him CHRISTIANO's phone number. He said he will call CHRISTIANO in the next hour with their choices. Elba YADAV
--- NOTE | 2021-06-20 11:30 | CASEMGMT ---
SW received a return call from patient's son. They would like [facility]. CHRISTIANO told him SW will make the referral and get back to him. CHRISTIANO spoke with Ivanna and they can take patient today. Patient is ready for discharge today. SW spoke with patient. Introduced self and role at [facility]. SW explained that it is being recommended he go somewhere for rehab. He asked where. CHRISTIANO told him SW spoke with his son Donald and he would like him to go to [facility]. He said he would be in agreement with that. SW let him know he will be going today. SW called patient's son Donald back and let him know patient can go to TCU and he will be going today. SW let him know that because patient is vaccinated he can have visitors in TCU. He thanked CHRISTIANO for this information. Plan: d/c to [facility] under skilled level of care. Elba YADAV
--- NOTE | 2021-06-20 12:44 | TREXTCAR_ITS ---
Documented by User: Stacey Greer NP, MUSIC ENGINEER-C 06/20/21 13:19 Diet 06/17/21 16:28 Diet: Cardiac - Heart Healthy Food consistency:: Regular Liquid Consistency:: Regular/Thin Routine Orders/Code Status Enema Type: Fleetz Enema Frequency: Daily PRN Suppository Type: Dulcolax 10mg Suppository Frequency: Daily PRN Routine Lab Work: - (Weekly CBC, BMP) Code Status: DNRCC-A (no intubation) Suggestions for Active Care Change Position every (hours): 2 Times a day to sit in chair: 3 Therapies Physical Therapy: Eval and Treat Occupational Therapy: Eval and Treat Problem/Diagnosis (1) Acute kidney injury superimposed on chronic kidney disease: Status: Chronic Allergies/Procedures Done in Hospital Allergies No Known Allergies Allergy (Verified 06/17/21 11:42) Procedures: 2-D Echocardiogram Type of Care/Length of Stay Estimated LOS: Convalescent Care Less Than 30 days Type of Care Needed: Skilled Rehab Potential: Good Prognosis: Good Additional Orders/Day of Discharge H&P will serve as current which was dated: 06/17/21 Day of Discharge: 06/20/21 Discharge Plan Admission Admit Date/Time: 06/17/21 15:22 Primary Reason for Your Visit: DVT/PE Attending Provider: Corina Mcfarland Primary Care Provider: Ethan Tubbs Discharge Orders/Prescriptions Prescriptions: New acetaminophen [Tylenol] 325 mg Tablet 650 mg PO Q4H PRN PRN (Reason: Fever, pain 1-10/10) Qty: 0 RF: 0 allopurinol 100 mg Tablet 100 mg PO BREAKFAST Qty: 0 RF: 0 Eliquis 2.5 mg Tablet 2.5 mg PO BID Qty: 0 RF: 0 Continued simvastatin 40 mg tablet 40 mg PO DAILY RF: 0 levothyroxine 50 mcg tablet 50 mcg PO DAILY RF: 0 cholecalciferol (vitamin D3) [Vitamin D3] 50 mcg (2,000 unit) Capsule 50 mcg PO DAILY RF: 0 Discontinued allopurinol 300 mg tablet 300 mg PO DAILY RF: 0 furosemide 20 mg tablet 20 mg PO DAILY RF: 0 budesonide 3 mg capsule,delayed,extend.release 3 mg PO DAILY RF: 0 Referrals / Follow Up: Ethan Tubbs MD [Primary Care Provider] - Within 2 Weeks Disposition Disposition (needs filled in before D/C Order can be placed): [facility] Facility Documented by User: Dr. Corina Mcfarland MD 06/20/21 13:48 Allergies/Procedures Done in Hospital Allergies No Known Allergies Allergy (Verified 06/17/21 11:42) Discharge Plan Admission Admit Date/Time: 06/17/21 15:22 Primary Reason for Your Visit: DVT/PE Attending Provider: Corina Mcfarland Primary Care Provider: Ethan Tubbs Discharge Orders/Prescriptions Prescriptions: New acetaminophen [Tylenol] 325 mg Tablet 650 mg PO Q4H PRN PRN (Reason: Fever, pain -06/18) Qty: 0 RF: 0 allopurinol 100 mg Tablet 100 mg PO BREAKFAST Qty: 0 RF: 0 Eliquis 2.5 mg Tablet 2.5 mg PO BID Qty: 0 RF: 0 Continued simvastatin 40 mg tablet 40 mg PO DAILY RF: 0 levothyroxine 50 mcg tablet 50 mcg PO DAILY RF: 0 cholecalciferol (vitamin D3) [Vitamin D3] 50 mcg (2,000 unit) Capsule 50 mcg PO DAILY RF: 0 Discontinued allopurinol 300 mg tablet 300 mg PO DAILY RF: 0 furosemide 20 mg tablet 20 mg PO DAILY RF: 0 budesonide 3 mg capsule,delayed,extend.release 3 mg PO DAILY RF: 0 Referrals / Follow Up: Ethan Tubbs MD [Primary Care Provider] - Within 2 Weeks Disposition Disposition (needs filled in before D/C Order can be placed): [facility]
--- NOTE | 2021-06-20 13:20 | DS.PCM_ITS ---
Documented by User: Stacey Greer NP, SENIOR TECH MANUFACTURING ENGINEERING-C 06/20/21 13:30 Providers Date of Admission: 06/17/21 Date of Discharge: 06/20/21 Primary Care Physician: Dr. Ethan Tubbs MD Reason For Visit: ? UTI, EXERTIONAL DYSPNEA Diagnosis Discharge Diagnosis (1) Acute kidney injury superimposed on chronic kidney disease: Status: Chronic Code(s): N17.9 - Acute kidney failure, unspecified; N18.9 - Chronic kidney disease, uns pecified Medications at Discharge Home Medications cholecalciferol (vitamin D3) [Vitamin D3] 50 mcg PO DAILY 06/17/21 levothyroxine 50 mcg PO DAILY 06/17/21 simvastatin 40 mg PO DAILY 06/17/21 acetaminophen [Tylenol] 650 mg PO Q4H PRN PRN #0 tab 06/20/21 allopurinol 100 mg PO BREAKFAST #0 tab 06/20/21 Hospital Course Operations None Procedures 2-D Echocardiogram Summary of Care Provided Minutes Spent on Discharge: 35 Hospital Course: Patient is an 86-year-old male admitted 06/17/2021 due to shortness of breath. 1. Acute DVT/PE-patient presented with dyspnea. History of DVT/PE. D-dimer greater than 20. Unable to obtain CTA due to renal function. Duplex ultrasound lower extremity positive for DVT on the right. Initially placed on heparin drip, transition to Eliquis 2.5 mg twice daily. 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 Oxygen currently stable on room air. Will not proceed with VQ scan as patient has known DVT and likely PE, will be treated with anticoagulation regardless. Echocardiogram demonstrates an EF of 40%, stage I diastolic dysfunction. Follow-up with PCP in two weeks. 2. Acute kidney injury on chronic kidney disease stage IIIb- Lasix on hold. Post void residuals without evidence of urinary retention. Renal ultrasound unremarkable. Urine studies ordered, FENa 0.6%, pre-renal. IV fluids during admission, creatinine trending down. Trend BMP at TCU. 3. Lactic acidosis-suspect related to dehydration. UA unremarkable. Urine culture with no growth. Chest x-ray and viral panel negative. 4. Chronic macrocytic anemia-appears stable. 5. History of CVA-continue statin. 6. Hypertension-stable, hold Lasix. 7. Hyperlipidemia-continue statin. 8. Persistent atrial fibrillation, status post pacemaker placement-Not previously on anticoagulation due to history of subdural hematoma. 9. History of subdural hematoma-patient unable to state when this occurred however he states it was a long time ago. 10. Hypothyroidism-continue Synthroid regimen. TSH normal. 11. History of gout-dose of allopurinol reduced due to renal function. Physical Exam Const alert and no apparent distress Orientation / Consciousness: awake, oriented to person, oriented to place and oriented to time HEENT normocephalic and moist oral mucous membranes Eyes PERRL, EOMs intact bilaterally and conjunctivae normal Neck no lymphadenopathy Resp clear to auscultation bilaterally Auscultation: diminished lung sounds Cardio regular rate, regular rhythm and no murmurs Peripheral Pulses: pulses 2+ throughout GI normal to inspection, nondistended, normoactive bowel sounds, non-tender and non-distended Extremity normal to inspection Skin no rashes or lesions noted Lesions: no lesions Rashes: no rashes Trauma: no lacerations or abrasions Neuro CN's II-XII intact bilaterally, no focal motor deficits, no sensory deficits noted and deep tendon reflexes 2+ bilaterally Psych mental status grossly normal and affect normal Patient seen and examined prior to discharge. Physical assessment as noted above. Patient is stable for discharge with follow up recommendations as noted above. This patient was seen by GIANNI Townsend under the supervision of Dr. Mcfarland. Weight / BMI Weight Weight: 167 lb 8.821 oz Body Mass Index (BMI) 21.1 ABG / Lab / Microbiology Data Result Diagrams: 06/20/21 06:35 06/20/21 06:35 Laboratory: Laboratory Results - last 24 hr 06/20/21 06:35: WBC 7.3, RBC 2.87 L, Hgb 9.4 L, Hct 28.9 L, MCV 100.7 H, MCH 32.8 H, MCHC 32.5, RDW Std Deviation 53.1 H, RDW Coeff of Smith 14.6, Plt Count 134 L, MPV 9.0, Immature Gran % (Auto) 1.200 H, Neut % (Auto) 65.4, Lymph % (Auto) 17.7 L, [place] % (Auto) 9.7, Eos % (Auto) 5.6 H, Baso % (Auto) 0.4, A bsolute Neuts (auto) 4.8, Absolute Lymphs (auto) 1.29, Nucleated RBC % 0 06/20/21 06:35: Sodium 142, Potassium 4.2, Chloride 114 H, Carbon Dioxide 19.0 L , Anion Gap 9, BUN 33 H, Creatinine 2.26 H, Estim Creat Clear Calc 24.99, Est GFR (MDRD) Af Amer 36 L, Est GFR (MDRD) Non-Af 29 L, BUN/Creatinine Ratio 14.6, Glucose 86, Calcium 8.6 Microbiology: Microbiology 06/17/21 13:40 Urine, Catheterized Urine Culture - Final Culture exhibits no growth. 06/17/21 14:10 Blood Culture (Wb) - Left Hand Blood Culture - Preliminary No growth in 48 hours. 06/17/21 14:10 Blood Culture (Wb) - Anticubital Left Blood Culture - Preliminary No growth in 48 hours. 06/19/21 01:20 Urine, Clean Catch Legionella Antigen - Final 06/19/21 01:20 Urine, Clean Catch Streptococcus pneumoniae Antigen (M - Final 06/17/21 20:15 Mucosa - Nasopharyngeal Respiratory Panel (PCR) - Final 06/17/21 11:59 Nasal Secretion SARS-CoV-2 Antigen (Rapid) - Final Radiography Diagnostic Testing: Radiology Impression Echocardiogram 06/18/21 05:55 Interpretation Summary Normal LV size. The estimated ejection fraction is 40 %. Stage 1 diastolic dysfunction. Mild (1+) aortic valve insufficiency. Mild (1+) eccentric mitral valve insufficiency. ICD or pacer leads identified within the right ventricle. Apical wall motion abnormality may reflect pacemaker activation. Compared to previous study, the left ventricular systolic function has worsened.. Ordering Physician: Agata Duffy Referring Physician: Ethan Tubbs Performed By: Hali Cabrera, KOMAL, RVT Renal Ultrasound 06/18/21 12:27 IMPRESSION: Bilateral renal cysts. Urinary bladder diverticulum. Electronically Signed: Anthony Quintana MD at 18:35 EDT , Service support , Meaningful Use Info Meaningful Use Diagnoses (Choose all that apply): VTE VTE Anticoag overlap given w/in hospital stay or rx'd at [facility]?: Yes Pt receive overlap for 5 days?: Yes Discharge Plan Admission Admit Date/Time: 06/17/21 15:22 Primary Reason for Your Visit: DVT/PE Attending Provider: Corina Mcfarland Primary Care Provider: Ethan Tubbs Discharge Orders/Prescriptions Prescriptions: New acetaminophen [Tylenol] 325 mg Tablet 650 mg PO Q4H PRN PRN (Reason: Fever, pain -06/18) Qty: 0 RF: 0 allopurinol 100 mg Tablet 100 mg PO BREAKFAST Qty: 0 RF: 0 Continued simvastatin 40 mg tablet 40 mg PO DAILY RF: 0 levothyroxine 50 mcg tablet 50 mcg PO DAILY RF: 0 cholecalciferol (vitamin D3) [Vitamin D3] 50 mcg (2,000 unit) Capsule 50 mcg PO DAILY RF: 0 Discontinued allopurinol 300 mg tablet 300 mg PO DAILY RF: 0 furosemide 20 mg tablet 20 mg PO DAILY RF: 0 budesonide 3 mg capsule,delayed,extend.release 3 mg PO DAILY RF: 0 Referrals / Follow Up: Ethan Tubbs MD [Primary Care Provider] - Within 2 Weeks Disposition Disposition (needs filled in before D/C Order can be placed): Long Term Facility Documented by User: Dr. Corina Mcfarland MD 06/20/21 13:57 Providers Date of Admission: 06/17/21 Reason For Visit: ? UTI, EXERTIONAL DYSPNEA Medications at Discharge Home Medications cholecalciferol (vitamin D3) [Vitamin D3] 50 mcg PO DAILY 06/17/21 levothyroxine 50 mcg PO DAILY 06/17/21 simvastatin 40 mg PO DAILY 06/17/21 acetaminophen [Tylenol] 650 mg PO Q4H PRN PRN #0 tab 06/20/21 allopurinol 100 mg PO BREAKFAST #0 tab 06/20/21 ABG / Lab / Microbiology Data Result Diagrams: 06/20/21 06:35 06/20/21 06:35 Discharge Plan Admission Admit Date/Time: 06/17/21 15:22 Primary Reason for Your Visit: DVT/PE Attending Provider: Corina Mcfarland Primary Care Provider: Ethan Tubbs Discharge Orders/Prescriptions Prescriptions: New acetaminophen [Tylenol] 325 mg Tablet 650 mg PO Q4H PRN PRN (Reason: Fever, pain 1-06/18) Qty: 0 RF: 0 allopurinol 100 mg Tablet 100 mg PO BREAKFAST Qty: 0 RF: 0 Continued simvastatin 40 mg tablet 40 mg PO DAILY RF: 0 levothyroxine 50 mcg tablet 50 mcg PO DAILY RF: 0 cholecalciferol (vitamin D3) [Vitamin D3] 50 mcg (2,000 unit) Capsule 50 mcg PO DAILY RF: 0 Discontinued allopurinol 300 mg tablet 300 mg PO DAILY RF: 0 furosemide 20 mg tablet 20 mg PO DAILY RF: 0 budesonide 3 mg capsule,delayed,extend.release 3 mg PO DAILY RF: 0 Referrals / Follow Up: Ethan Tubbs MD [Primary Care Provider] - Within 2 Weeks Disposition Disposition (needs filled in before D/C Order can be placed): Long Term Facility Charges/Coding Addendum Addendum: This patient was seen in conjunction with Stacey Greer. I have independently interviewed and examined the patient and reviewed pertinent historical, laboratory, and other data. I have reviewed her note and concur with her documentation 86-year-old male with past medical history of DVT who comes in with progressive shortness of breath. He was found to have elevated D-dimer more than 20. We were unable to do CTA of the chest on account of acute kidney injury. Patient did have acute DVT of the right femoral vein, right gastrocnemius vein, right soleus. Patient was started on heparin drip initially and transition to apixaban. 2D echo shows EF of 40%, stage I diastolic dysfunction. Patient was seen by PT and OT and skilled for discharge to subacute care. Physical Exam: Gen: Appeared comfortable, not pale, not jaundiced CVS:HS I +II, regular, no murmurs RESP:CTA GI: BS present and normal, soft, nontender, no palpable organs EXT:No edema Visit Charges Inpatient E&M: 22285 Disch Hosp
--- NOTE | 2021-06-20 14:26 | NURSING ---
Report called to HENNY Bellamy on TCU.
== END 2021-06-20 14:43 | disposition skilled nursing facility (03) | DRG 176 ==
LOC: ED 14:49 → PCU 15:46
PROVIDERS: Internal Medicine; Internal Medicine Nephrology; Nurse Practitioner Family; Admitting Provider Family Medicine; Emergency Provider Emergency Medicine; PCP Family Medicine; Visit Provider Internal Medicine
DX: I26.99 Other pulmonary embolism without acute cor pulmonale (principal); I82.411 Acute embolism and thrombosis of right femoral vein; N17.9 Acute kidney failure, unspecified; I48.19 Other persistent atrial fibrillation; E87.2 Acidosis; I44.2 Atrioventricular block, complete; I82.491 Acute embolism and thrombosis of other specified deep vein of right lower extremity; I82.461 Acute embolism and thrombosis of right calf muscular vein; M10.9 Gout, unspecified; N18.32 Chronic kidney disease, stage 3b; I12.9 Hypertensive chronic kidney disease with stage 1 through stage 4 chronic kidney disease, or unspecified chronic kidney disease; E87.6 Hypokalemia; E86.0 Dehydration; D53.9 Nutritional anemia, unspecified; D69.6 Thrombocytopenia, unspecified; E03.9 Hypothyroidism, unspecified; E78.5 Hyperlipidemia, unspecified; I27.20 Pulmonary hypertension, unspecified; I35.2 Nonrheumatic aortic (valve) stenosis with insufficiency; F17.290 Nicotine dependence, other tobacco product, uncomplicated; Z66 Do not resuscitate; Z95.0 Presence of cardiac pacemaker; Z86.73 Personal history of transient ischemic attack (TIA), and cerebral infarction without residual deficits; Z86.711 Personal history of pulmonary embolism; Z86.718 Personal history of other venous thrombosis and embolism; Z85.46 Personal history of malignant neoplasm of prostate; Z79.82 Long term (current) use of aspirin; Z79.899 Other long term (current) drug therapy
CPT/HCPCS: 36415; 71045; 76770; 80048; 80053; 81001; 82570; 82607; 82746; 83605; 83735; 83880; 84145; 84300; 84439; 84443; 84484; 85025; 85379; 85610; 85730; 87040; 87086; 87426; 87449; 87633; 93005; 93306; 93970; 94640; 97162; 97166; 97530; 97535; 99251; 99285; J7030; J7040; P9612; Q9957; A4216; C8929; G0463

== ENCOUNTER 2021-06-20 14:55 | Inpatient (IN) | payer MEDICARE, OTHER, SELFPAY ==
[2021-06-20 15:06] VITALS: BP 147/78; PULSE 80; RESP 18; TEMP 36.6; O2SAT 96
[2021-06-20 15:38] VITALS: BMI 21.4
--- NOTE | 2021-06-20 15:51 | NURSING ---
clarified eliquis dosing with DENNISE Ibarra, change order to 10mg BID x7 days then 5mg BID
--- NOTE | 2021-06-20 16:13 | NURSING ---
Resident sitting in chair. Forgetful at times when asking questions on his history. Requesting this RN to call his son, Donald. Called placed and message left for Donald to call back.
--- NOTE | 2021-06-20 17:35 | NURSING ---
Tapanet given to granddaughter, Caitlin.
[2021-06-20] MEDS: APIXABAN 5 MG TABLET 10 MG PO (17:59)
[2021-06-20] MEDS: Menthol/Lanolin/Calamine/Znox 113 GM Tube 1 APPLIC TOPICAL (20:08)
--- NOTE | 2021-06-20 20:08 | PCM.HP.STD ---
HPI - General General Date of Admission: 06/20/21 HPI Narrative 06/17/2021 BENJAMIN MAS, is a 86 Male who presents to [facility] Emergency Department with shortness of breath. 06/17/2021 EKG sinus rhythm with marked sinus arrhythmia, left axis deviation, non-specific intra-ventricular conduction block, inferior infarct, age undetermined. Dyspnea on exertion x 2 days, worse with exertion, better at rest. Lightheaded, IV fluids given. WBC 12.5, Creatinine 2.44, Lactate 3.2. Chest X-ray okay, UA +/-, Rocephin given. Blood cultures sent, Urine culture sent. 06/17/2021 Admit to Hospital. covid negative, pulsox stable on room air. Doppler of legs to rule out DVT. No anticoagulation for PE/DVT/Afib due to subdural hematoma in distant past. D-dimer > 20, start heparin drip, unable CTA chest due to Cr 2.44, consider VQ scan. 06/18/2021 Echo Normal LV size. EF 40%. Stage 1 diastolic dysfunction. LVSF worse compared to previous echo. 06/18/2021 Intermittent shortness of breath. Doppler ultrasound positive DVT right lower extremity. Heparin drip for DVT/presumed PE. 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 06/20/2021 Admit to TCU with debility, here for rehabilitation, strengthening, prior to discharge home with . [facility] Medical History Atrial flutter with controlled response Former smoker History of complete heart block History of CVA (cerebrovascular accident) History of DVT (deep vein thrombosis) History of pulmonary embolism History of subdural hematoma Hyperlipidemia Hypertension Nonrheumatic aortic (valve) stenosis with insufficiency Paroxysmal atrial fibrillation Paroxysmal ventricular tachycardia Pulmonary hypertension Home Medications cholecalciferol (vitamin D3) [Vitamin D3] 50 mcg PO DAILY 06/17/21 [History Last Taken 06/16/21] levothyroxine 50 mcg PO DAILY 06/17/21 [History Last Taken 06/16/21] simvastatin 40 mg PO DAILY 06/17/21 [History Last Taken 06/16/21] acetaminophen [Tylenol] 650 mg PO Q4H PRN PRN #0 tab 06/20/21 [Rx Last Taken Unknown] allopurinol 100 mg PO BREAKFAST 06/20/21 [History Last Taken Unknown] apixaban [Eliquis] 5 mg PO BID #0 tab 06/20/21 [Rx Last Taken Unknown] Allergy/AdvReac Type Severity Reaction Status Date / Time No Known Allergies Allergy Verified 06/17/21 11:42 Family History Mother , Age 51 from Sarcoidosis Sarcoidosis Father , age 79 CVA, CHF CVA (cerebral vascular accident) Congestive heart failure Sister , respiratory failure Respiratory failure Surgical History Cardiac pacemaker in situ History of open reduction and internal fixation (ORIF) procedure S/P insertion of IVC (inferior vena caval) filter Social History household members: spouse Smoking Status: Former smoker alcohol intake: never substance use type: does not use ROS Constitutional Constitutional: Denies chills, fever(s) or weight gain ENT HEENT: Denies headache(s), nasal congestion or nasal discharge Cardiovascular Cardiovascular: Denies chest pain or palpitations Respiratory/Chest Respiratory/Chest: Denies cough, excessive phlegm production or shortness of breath with exertion Gastrointestinal Gastrointestinal: Denies abdominal pain, nausea or vomiting Genitourinary Genitourinary: Denies dysuria Musculoskeletal Musculoskeletal: Denies joint pain or joint swelling Integumentary Integumentary: Denies rash or wounds Neurologic Neurologic: Denies focal weakness, numbness or tingling Psychiatric Psychiatric: Reports auditory hallucinations; Denies anxiety, depression, homicidal ideation or suicidal ideation Vital Signs Vital Signs Vital Signs: 06/20/21 15:06 06/20/21 15:55 Temperature 97.9 F Temperature Source Temporal Pulse Rate 80 Pulse Rhythm Regular Respiratory Rate 18 Respiratory Effort Normal Respiratory Depth Normal Respiratory Pattern Normal Blood Pressure 147/78 H Blood Pressure Mean 101 Blood Pressure Source Monitor Blood Pressure Position Sitting Blood Pressure Location Left Arm Pulse Ox 96 Oxygen Delivery Method Room Air Room Air Weight Weight: 67.727 kg Body Mass Index (BMI) 21.4 Physical Exam Const alert and oriented x3 General Appearance: cooperative HEENT normocephalic Eyes PERRL and EOMs intact bilaterally Neck supple, no JVD and no carotid bruits Resp normal respiratory effort, normal air movement and clear to auscultation bilaterally Cardio regular rate and regular rhythm GI normal to inspection, nondistended, normoactive bowel sounds, non-tender and non-distended Extremity normal capillary refill General Extremity: Negative for edema Skin no rashes or lesions noted General Skin Exam: no breakdown Psych affect normal Appearance: appropriate Assessment & Plan Assessment/Plan (1) Debility: (2) Acute kidney injury superimposed on chronic kidney disease: (3) Chronic kidney disease, stage 3b: (4) DVT (deep venous thrombosis): (5) Pulmonary embolism: (6) Prostate cancer: (7) Gout: (8) COPD (chronic obstructive pulmonary disease): (9) Vitamin D deficiency: (10) Hypothyroidism: (11) Hyperlipidemia: (12) Edema: (13) Subdural hematoma: PLAN: 86 year old male with below past medical history hospitalized for dyspnea on exertion secondary to presumed pulmonary embolism, complicated by right lower extremity DVT, acute kidney injury, admitted to TCU with debility, here for rehabilitation, strengthening, prior to discharge home with . Debility - PT/OT. Pain - Tylenol 1000mg Q6H prn pain (1-10) Bowel - Miralax 17gm daily, Senna/colace 1 tablet twice daily, Dulcolax 10mg pr daily PRN. Adult immunization - Administer prevnar 13, pneumovax 23, fluzone, covid19 vaccine as appropriate. DVT prophylaxis - Not necessary, already anticoagulated. Gout - Allopurinol 100mg daily. Recurrent DVT/PE - Eliquis 10mg twice daily x7 days, then 5mg twice daily forever. Hyperlipidemia - Atorvastatin 20mg qhs. Vitamin D deficiency - D3 2000IU daily. Skin irritation - Eucerin topical qhs, Calmoseptine topical twice daily. Hypothyroidism - Levothyroxine 50mcg daily. Tinea Corporis - Nystatin powder topical twice daily.
[2021-06-20] MEDS: Nystatin Powder 15gm Bottle 1 APPLIC TOPICAL (20:09)
[2021-06-20] MEDS: Senna/Docusate Sodium 1 Tablet PO (20:37)
[2021-06-20] MEDS: Acetaminophen 500 MG Tablet 1000 MG PO (20:54)
[2021-06-21] MEDS: Menthol/Lanolin/Calamine/Znox 113 GM Tube 1 APPLIC TOPICAL ×2 (05:24→05:27)
[2021-06-21] MEDS: APIXABAN 5 MG TABLET 10 MG PO ×2 (05:24→17:50)
[2021-06-21] MEDS: Levothyroxine 50 MCG Tablet PO (05:25)
[2021-06-21] MEDS: Atorvastatin Calcium 20 MG Tablet PO (05:25)
[2021-06-21] MEDS: Cholecalciferol (VIT D3) 25 MCG TABLET (1,000 UNITS) 50 MCG PO (05:25)
[2021-06-21] MEDS: Senna/Docusate Sodium 1 Tablet PO ×2 (05:26→17:51)
[2021-06-21] MEDS: Polyethylene Glycol 3350 17 GM PACKET PO (05:26)
[2021-06-21] MEDS: Nystatin Powder 15gm Bottle 1 APPLIC TOPICAL ×2 (05:27→21:57)
[2021-06-21 06:08] LABS: Absolute Lymphocyte Count 1.67 X10^3/uL (0.83-4.51); Absolute Neutrophil Count 4.3 X10^3/uL (2.0-7.7); Basophil# 0.04 X10^3/uL; Basophil% 0.5 % (0-1); Eosinophil# 0.42 X10^3/uL; Eosinophils% 5.8 % (0-5); Hematocrit 31.5 % (40-54); Hemoglobin 10.1 g/dL (13.0-16.5); Lymphocyte # 1.67 X10^3/ul (0.83-4.51); Lymphocyte % 22.9 % (19-41); Mean Corp Hgb Conc 32.1 g/dL (32-36); Mean Corpuscular Hgb 32.2 pg (27.0-32.0); Mean Corpuscular Volume 100.3 fL (80-94); Mean Platelet Vol. 9.2 fl (6.2-12.0); Monocyte# 0.77 X10^3/uL; Monocyte% 10.5 % (0-10); NRBC Flagged by Analyzer 0 % (0-5); Neutrophil # 4.31 X10^3/uL (2.7-7.7); Neutrophil % 59.1 % (47-70); Platelet Count 155 K/mm3 (150-450); RBC Distribution Width CV 14.6 % (11.6-14.6); RBC Distribution Width SD 52.7 fl (35.1-43.9); Red Blood Count 3.14 M/mm3 (4.6-6.2); White Blood Count 7.3 K/mm3 (4.4-11.0)
[2021-06-21 06:31] LABS: Anion Gap 7 (5-15); BUN 35 mg/dL (7-18); BUN/Creat Ratio 15.3 RATIO (10-20); Calcium,Total 9.1 mg/dL (8.5-10.1); Chloride 117 mmol/L (98-107); Creatinine, Serum 2.29 mg/dL (0.70-1.30); EST Glomerular Filtration Rate 29 mL/min (>60); Est Glom Filt Rate - Afr Amer 35 mL/min (>60); Estimated Creatinine Clearance 22.18 ml/min; Glucose 98 mg/dL (74-106); Potassium 4.4 mmol/L (3.5-5.1); Sodium Level 141 mmol/L (136-145)
[2021-06-21] MEDS: Allopurinol 100 MG Tablet PO (08:08)
[2021-06-21 09:55] VITALS: PULSE 85; RESP 18
[2021-06-21] MEDS: Tuberculin,Purif.prot.deriv. 50 TU/ML Vial 0.1 ML ID (11:06)
--- NOTE | 2021-06-21 11:40 | PCM.PN.RX ---
Progress Note - Pharmacy Subjective: TCU Admission Objective: Allergies No Known Allergies Allergy (Verified 06/17/21 11:42) Current Medications Generic Name Dose Route Start Last Admin Trade Name Freq PRN Reason Stop Dose Admin Acetaminophen 1,000 mg 06/20/21 20:23 06/20/21 20:54 Acetaminophen 500 Mg Tablet PO 1,000 mg Q6H PRN PRN Administration Pain Score 1-10 Allopurinol 100 mg 06/21/21 08:00 06/21/21 08:08 Allopurinol 100 Mg Tablet PO 100 mg BREAKFAST DENNIS Administration Apixaban 10 mg 06/20/21 18:00 06/21/21 05:24 Apixaban 5 Mg Tablet PO 06/27/21 18:01 10 mg BID DENNIS Administration Apixaban 5 mg 06/28/21 06:00 Apixaban 5 Mg Tablet PO BID DENNIS Atorvastatin Calcium 20 mg 06/21/21 06:00 06/21/21 05:25 Atorvastatin Calcium 20 Mg Tablet PO 20 mg DAILY DENNIS Administration Bisacodyl 10 mg 06/20/21 15:13 Bisacodyl 10 Mg Suppository RC DAILY PRN Constipation Calamine/Phenol 1 applic 06/20/21 22:00 06/21/21 05:27 Menthol/Lanolin/Calamine/Znox 113 Gm Tube TOPICAL 1 applic 0600,2200 [facility] Administration Protocol Cholecalciferol 50 mcg 06/21/21 06:00 06/21/21 05:25 Cholecalciferol (Vit D3) 25 Mcg Tablet (1,000 Units) PO 50 mcg DAILY DENNIS Administration Emollient Ointment 1 applic 06/20/21 22:00 06/20/21 20:09 Emollient Combination No.72 500 Ml Lotion TOPICAL 1 applic QHS [facility] Administration Protocol Levothyroxine Sodium 50 mcg 06/21/21 06:00 06/21/21 05:25 Levothyroxine 50 Mcg Tablet PO 50 mcg DAILY DENNIS Administration Melatonin 10 mg 06/21/21 22:00 Melatonin 10 Mg Tablet PO QHS [facility] Nystatin 1 applic 06/20/21 22:00 06/21/21 05:27 Nystatin Powder 15gm Bottle TOPICAL 1 applic 0600,2200 [facility] Administration Protocol Polyethylene Glycol 17 gm 06/21/21 06:00 06/21/21 05:26 Polyethylene Glycol 3350 17 Gm Packet PO 17 gm DAILY DENNIS Administration Senna/Docusate Sodium 1 tablet 06/20/21 20:30 06/21/21 05:26 Senna/Docusate Sodium 1 Tablet PO 1 tablet BID DENNIS Administration Tuberculin PPD 0.1 ml 06/28/21 10:00 Tuberculin,Purif.Prot.Deriv. 50 Tu/Ml Vial ID 06/28/21 10:01 X1 ONE Problem List (Last Reviewed 06/20/21 @ 20:[address] Garth Desai MD) Subdural hematoma (Acute) Edema (Acute) Hyperlipidemia (Acute) Hypothyroidism (Acute) Vitamin D deficiency (Acute) COPD (chronic obstructive pulmonary disease) (Chronic) Gout (Acute) Prostate cancer (Acute) Pulmonary embolism (Acute) DVT (deep venous thrombosis) (Acute) Chronic kidney disease, stage 3b (Acute) Debility (Acute) Acute kidney injury superimposed on chronic kidney disease (Chronic) Vital Signs Temp Pulse Resp BP Pulse Ox 97.9 F 85 18 147/78 H 96 06/20/21 15:06 06/21/21 09:55 06/21/21 09:55 06/20/21 15:06 06/20/21 15:06 Oxygen Delivery Method Room Air Weight: 67.727 kg Body Mass Index (BMI) 21.4 Sodium 141 mmol/L (136-145) 06/21/21 05:32 Potassium 4.4 mmol/L (3.5-5.1) 06/21/21 05:32 Chloride 117 mmol/L (98-107) H 06/21/21 05:32 Carbon Dioxide 17.0 mmol/L (21.0-32.0) L 06/21/21 05:32 Anion Gap 7 (5-15) 06/21/21 05:32 BUN 35 mg/dL (7-18) H 06/21/21 05:32 Creatinine 2.29 mg/dL (0.70-1.30) H 06/21/21 05:32 Est GFR (MDRD) Af Amer 35 mL/min (>60) L 06/21/21 05:32 Est GFR (MDRD) Non-Af 29 mL/min (>60) L 06/21/21 05:32 BUN/Creatinine Ratio 15.3 RATIO (10-20) 06/21/21 05:32 Glucose 98 mg/dL (74-106) 06/21/21 05:32 Assessment/Plan: 1. Pain: acetaminophen 1000mg PO Q6H PRN pain 1-10. Please continue to monitor for increased pain and PRN usage. 2. Gout: allopurinol 100mg PO breakfast. Please continue to monitor for S/S of gout and renal function. 3. Recurrent DVT/PE: apixaban 10mg PO BID x 7 days, then 5mg PO BID thereafter. Please continue to monitor for S/S of bleeding and hemoglobin (last 10.1g/dL). 4. Hyperlipidemia: atorvastatin 20mg PO daily. Please continue to monitor lipid panel (last 01/11/21) and muscle pain. 5. Hypothyroidism: levothyroxine 50mcg PO daily. Please continue to monitor TSH (last 06/18/21) and for S/S of hypo/hyperthyroidism. *6. Vitamin D deficiency: cholecalciferol 50mcg PO daily. Please consider ordering a vitamin D level. if clinically appropriate (last level from 05/2015). Thanks. Psychotropic Medications: None Unnecessary Medications: None Bowel Regimen: Miralax 17gm PO daily, senna/docusate 1T PO BID and bisacodyl 10mg RC daily PRN constipation. Please continue to monitor for constipation and PRN usage. Date of Note:: 06/21/21
[2021-06-21 13:40] VITALS: BP 123/78; PULSE 78; RESP 16; TEMP 36.1; O2SAT 98
--- NOTE | 2021-06-21 20:45 | NURSING ---
Pt alarm going off, pt states he wants to take a walk, walked with pt in halls, gait steady. Back to chair per his request, states he does not want to get in bed yet. Feet elevated, call light in reach.
[2021-06-21] MEDS: MELATONIN 10 MG TABLET PO (20:58)
[2021-06-22] MEDS: Polyethylene Glycol 3350 17 GM PACKET PO (06:05)
[2021-06-22] MEDS: Cholecalciferol (VIT D3) 25 MCG TABLET (1,000 UNITS) 50 MCG PO (06:05)
[2021-06-22] MEDS: Senna/Docusate Sodium 1 Tablet PO ×2 (06:06→18:28)
[2021-06-22] MEDS: APIXABAN 5 MG TABLET 10 MG PO ×2 (06:06→18:28)
[2021-06-22] MEDS: Atorvastatin Calcium 20 MG Tablet PO (06:06)
[2021-06-22] MEDS: Levothyroxine 50 MCG Tablet PO (06:06)
[2021-06-22] MEDS: Nystatin Powder 15gm Bottle 1 APPLIC TOPICAL ×2 (06:39→21:20)
[2021-06-22] MEDS: Menthol/Lanolin/Calamine/Znox 113 GM Tube 1 APPLIC TOPICAL ×2 (06:40→21:21)
[2021-06-22] MEDS: Allopurinol 100 MG Tablet PO (08:14)
--- NOTE | 2021-06-22 11:29 | CASEMGMT ---
Social Work SW met with pt and competed psychosocial Assessment. SW reviewed pt code status with pt and assisted in completing MOLST form. At this time pt requesting full code with no intubation, however upon admission pt informed nursing of wishes of DNRCCA with no intubation. Message left for Dr. Lloyd valle clarify. SW explained medicare coverage. Pt currently lives at home with his and reports he is independent with care needs. Pt does have services through [facility] who assist pt and in setting up medications weekly. Pt states he plans to return home. Per the acute SW who spoke with pt's sons, pt has Alzheimers and family is looking into Assisted Living for both pt and . SW will continue to follow. SHMUEL Cortes
[2021-06-22 13:38] VITALS: BP 128/69; PULSE 80; RESP 17; TEMP 36.1; O2SAT 96
[2021-06-22] MEDS: MELATONIN 10 MG TABLET PO (21:19)
[2021-06-22 22:12] VITALS: PULSE 87; RESP 16
[2021-06-23] MEDS: Polyethylene Glycol 3350 17 GM PACKET PO (05:13)
[2021-06-23] MEDS: Senna/Docusate Sodium 1 Tablet PO ×2 (05:13→16:34)
[2021-06-23] MEDS: Cholecalciferol (VIT D3) 25 MCG TABLET (1,000 UNITS) 50 MCG PO (05:13)
[2021-06-23] MEDS: APIXABAN 5 MG TABLET 10 MG PO ×2 (05:13→16:34)
[2021-06-23] MEDS: Atorvastatin Calcium 20 MG Tablet PO (05:13)
[2021-06-23] MEDS: Levothyroxine 50 MCG Tablet PO (05:13)
[2021-06-23] MEDS: Menthol/Lanolin/Calamine/Znox 113 GM Tube 1 APPLIC TOPICAL ×2 (05:14→21:07)
[2021-06-23] MEDS: Nystatin Powder 15gm Bottle 1 APPLIC TOPICAL ×2 (05:14→21:07)
[2021-06-23] MEDS: Allopurinol 100 MG Tablet PO (08:35)
--- NOTE | 2021-06-23 09:19 | CASEMGMT ---
Addendum entered by Ludivina Weinstein 06/23/21 15:37: SonKetan, in today. Spoke with this worker and Dr. Desai. Explained pt is agitated and not compliant with staff, thus looking for DC once there is a safe DC plan in place. Son expressed understanding and agreement. Family is touring several ALs and the goal is for pt and his to transfer to AL together. Explained for to get transferred to speak with her PCP, but this worker will assist with pt's transfer. has Alzheimer's and son Ketan is her HCPOA. According to son, pt had signed over decision making to sonKetan, about two years ago, since is primary HCPOA - thus son Ketan is now HCPOA for pt. Paperwork on file. Reiterated son would be the decision maker for discharge plans. Son expressed understanding and will contact this worker with outcomes of AL tours to send referral and set DC date. Will continue to follow. Addendum entered by Ludivina Weinstein 06/23/21 10:20: Spoke with son - brother is going to tour [facility] and [facility] today, then he will be in to visit pt and speak with this worker. Will continue to follow. Original Note: Social Work Left message with son to discuss DC plans. advised pt is unable to make his own decisions. SW to continue to follow. JUAN Rojo
[2021-06-23 10:00] VITALS: PULSE 80; RESP 16; O2SAT 93
[2021-06-23 16:04] VITALS: BP 115/74; PULSE 89; RESP 16; TEMP 37; O2SAT 95
[2021-06-23] MEDS: MELATONIN 10 MG TABLET PO (21:04)
[2021-06-24] MEDS: Senna/Docusate Sodium 1 Tablet PO ×2 (05:44→17:44)
[2021-06-24] MEDS: Cholecalciferol (VIT D3) 25 MCG TABLET (1,000 UNITS) 50 MCG PO (05:44)
[2021-06-24] MEDS: Atorvastatin Calcium 20 MG Tablet PO (05:44)
[2021-06-24] MEDS: Levothyroxine 50 MCG Tablet PO (05:44)
[2021-06-24] MEDS: Polyethylene Glycol 3350 17 GM PACKET PO (05:45)
[2021-06-24] MEDS: Menthol/Lanolin/Calamine/Znox 113 GM Tube 1 APPLIC TOPICAL ×2 (05:46→19:54)
[2021-06-24] MEDS: Nystatin Powder 15gm Bottle 1 APPLIC TOPICAL ×2 (05:46→19:56)
--- NOTE | 2021-06-24 07:53 | NURSING ---
Patient having blood in BMs this morning. Small-moderate amount bright red blood noted. Patient not straining, no hemorrhoids noted. Updated Dr. Desai, order to decrease eliquis to 5mg BID and give first dose tonight at 1800.
[2021-06-24] MEDS: Allopurinol 100 MG Tablet PO (07:55)
[2021-06-24 10:00] VITALS: BP 114/72; PULSE 77; PULSE 80; RESP 18; TEMP 36.3; O2SAT 98; O2SAT 99
[2021-06-24] MEDS: APIXABAN 5 MG TABLET PO (17:44)
[2021-06-24] MEDS: MELATONIN 10 MG TABLET PO (19:56)
--- NOTE | 2021-06-24 21:27 | PCA ---
Patient did not wish to get washed up tonight and would like to sleep in the clothes he had on stating that they were more comfortable than a hospital gown and a lot warmer.
[2021-06-25] MEDS: Polyethylene Glycol 3350 17 GM PACKET PO (05:06)
[2021-06-25] MEDS: APIXABAN 5 MG TABLET PO ×2 (05:07→17:11)
[2021-06-25] MEDS: Menthol/Lanolin/Calamine/Znox 113 GM Tube 1 APPLIC TOPICAL ×2 (05:07→19:49)
[2021-06-25] MEDS: Atorvastatin Calcium 20 MG Tablet PO (05:08)
[2021-06-25] MEDS: Nystatin Powder 15gm Bottle 1 APPLIC TOPICAL ×2 (05:08→19:50)
[2021-06-25] MEDS: Levothyroxine 50 MCG Tablet PO (05:09)
[2021-06-25] MEDS: Senna/Docusate Sodium 1 Tablet PO ×2 (05:09→17:11)
[2021-06-25] MEDS: Cholecalciferol (VIT D3) 25 MCG TABLET (1,000 UNITS) 50 MCG PO (05:09)
[2021-06-25] MEDS: Allopurinol 100 MG Tablet PO (08:37)
[2021-06-25 13:31] VITALS: BP 118/69; PULSE 79; RESP 16; TEMP 36.6; O2SAT 98
[2021-06-25] MEDS: MELATONIN 10 MG TABLET PO (19:50)
[2021-06-25 22:00] VITALS: PULSE 66; RESP 14; O2SAT 96
[2021-06-26] MEDS: APIXABAN 5 MG TABLET PO ×2 (05:40→17:32)
[2021-06-26] MEDS: Nystatin Powder 15gm Bottle 1 APPLIC TOPICAL ×2 (05:40→19:57)
[2021-06-26] MEDS: Cholecalciferol (VIT D3) 25 MCG TABLET (1,000 UNITS) 50 MCG PO (05:40)
[2021-06-26] MEDS: Senna/Docusate Sodium 1 Tablet PO ×2 (05:40→17:31)
[2021-06-26] MEDS: Atorvastatin Calcium 20 MG Tablet PO (05:40)
[2021-06-26] MEDS: Polyethylene Glycol 3350 17 GM PACKET PO (05:40)
[2021-06-26] MEDS: Levothyroxine 50 MCG Tablet PO (05:40)
[2021-06-26] MEDS: Menthol/Lanolin/Calamine/Znox 113 GM Tube 1 APPLIC TOPICAL ×2 (05:41→19:56)
[2021-06-26] MEDS: Allopurinol 100 MG Tablet PO (07:57)
--- NOTE | 2021-06-26 14:09 | CASEMGMT ---
Addendum entered by Ludivina Weinstein 06/27/21 14:06: Spoke [facility] and confirmed DC 06/29. Plan: DC to [facility] 06/29, No [facility] recommended Addendum entered by Ludivina Weinstein 06/26/21 15:30: Clarified with son that he goes by Ketan or Kareem, same as his father (pt). Updated face sheet. Original Note: Social Work Spoke with son, Ketan, to follow up with DC plans. Son toured several facilities and would like referral made to [facility]. Spoke with Lyudmila at [facility] and confirmed. Faxed referral. Will continue to follow. JUAN RojoW
[2021-06-26] MEDS: MELATONIN 10 MG TABLET PO (19:55)
[2021-06-26 20:31] VITALS: BP 123/68; PULSE 71; RESP 14; TEMP 36.9; O2SAT 94
[2021-06-26 22:41] VITALS: PULSE 75; O2SAT 94
[2021-06-27] MEDS: Cholecalciferol (VIT D3) 25 MCG TABLET (1,000 UNITS) 50 MCG PO (04:56)
[2021-06-27] MEDS: Levothyroxine 50 MCG Tablet PO (04:56)
[2021-06-27] MEDS: APIXABAN 5 MG TABLET PO ×2 (04:56→17:36)
[2021-06-27] MEDS: Nystatin Powder 15gm Bottle 1 APPLIC TOPICAL ×2 (04:56→20:51)
[2021-06-27] MEDS: Senna/Docusate Sodium 1 Tablet PO ×2 (04:56→17:36)
[2021-06-27] MEDS: Polyethylene Glycol 3350 17 GM PACKET PO (04:56)
[2021-06-27] MEDS: Atorvastatin Calcium 20 MG Tablet PO (04:56)
[2021-06-27] MEDS: Menthol/Lanolin/Calamine/Znox 113 GM Tube 1 APPLIC TOPICAL ×2 (04:57→20:50)
[2021-06-27] MEDS: Allopurinol 100 MG Tablet PO (08:13)
[2021-06-27 14:19] VITALS: BP 129/67; PULSE 85; RESP 19; TEMP 36.6; O2SAT 95
--- NOTE | 2021-06-27 19:42 | PCM.DC.SUM ---
Providers Date of Admission: 06/20/21 Primary Care Physician: Dr. Ethan Tubbs MD Reason For Visit: DYSPENA UTI Diagnosis Discharge Diagnosis (1) Debility: Status: Acute Code(s): R53.81 - Other malaise (2) Acute kidney injury superimposed on chronic kidney disease: Status: Resolved Code(s): N17.9 - Acute kidney failure, unspecified; N18.9 - Chronic kidney disease, unspecified (3) Chronic kidney disease, stage 3b: Status: Acute Code(s): N18.32 - Chronic kidney disease, stage 3b (4) DVT (deep venous thrombosis): Status: Acute Code(s): I82.409 - Acute embolism and thrombosis of unspecified deep veins of unspecified lower extremity (5) Pulmonary embolism: Status: Acute Code(s): I26.99 - Other pulmonary embolism without acute cor pulmonale (6) Prostate cancer: Status: Acute Code(s): C61 - Malignant neoplasm of prostate (7) Gout: Status: Acute Code(s): M10.9 - Gout, unspecified (8) COPD (chronic obstructive pulmonary disease): Status: Chronic Code(s): J44.9 - Chronic obstructive pulmonary disease, unspecified (9) Vitamin D deficiency: Status: Acute Code(s): E55.9 - Vitamin D deficiency, unspecified (10) Hypothyroidism: Status: Acute Code(s): E03.9 - Hypothyroidism, unspecified (11) Hyperlipidemia: Status: Acute Code(s): E78.5 - Hyperlipidemia, unspecified (12) Edema: Status: Acute Code(s): R60.9 - Edema, unspecified (13) Subdural hematoma: Status: Acute Code(s): S06.5X9A - Traumatic subdural hemorrhage with loss of consciousness of unspecified duration, initial encounter Medications at Discharge Home Medications cholecalciferol (vitamin D3) [Vitamin D3] 50 mcg PO DAILY 06/17/21 levothyroxine 50 mcg PO DAILY 06/17/21 simvastatin 40 mg PO DAILY 06/17/21 acetaminophen [Tylenol] 650 mg PO Q4H PRN PRN #0 tab 06/20/21 allopurinol 100 mg PO BREAKFAST 06/20/21 Emollient Combination No.72 [Eucerin Intensive Repair] 1 applic TOPICAL QHS #0 06/27/21 apixaban [Eliquis] 5 mg PO BID 30 Days #60 tab 06/27/21 melatonin 10 mg PO QHS #0 tab 06/27/21 menthol-zinc oxide [Calmoseptine] 1 applic TOPICAL 0600,2200 #0 g 06/27/21 nystatin [Nyamyc] 1 applic TOPICAL 0600,2200 #0 g 06/27/21 Hospital Course Operations None Procedures None Summary of Care Provided Minutes Spent on Discharge: 35 Hospital Course: 86 year old male with below past medical history hospitalized for dyspnea on exertion secondary to presumed pulmonary embolism, complicated by right lower extremity DVT, acute kidney injury, admitted to TCU with debility, here for rehabilitation, strengthening, prior to discharge home with . Discharge to [facility] 06/29/2021, No Home Health Care recommended. Physical Exam Const alert and oriented x3 General Appearance: cooperative HEENT normocephalic Eyes PERRL and EOMs intact bilaterally Neck supple, no JVD and no carotid bruits Resp normal respiratory effort, normal air movement and clear to auscultation bilaterally Cardio regular rate and regular rhythm GI normal to inspection, nondistended, normoactive bowel sounds, non-tender and non-distended Extremity normal capillary refill General Extremity: Negative for edema Skin no rashes or lesions noted General Skin Exam: no breakdown Psych affect normal Appearance: appropriate Weight / BMI Weight Weight: 78.557 kg Body Mass Index (BMI) 21.4 ABG / Lab / Microbiology Data Result Diagrams: 06/21/21 05:32 06/21/21 05:32 D/C Instructions Discharge Diet: No restrictions Discharge Activity: Return to Normal Activity, May Shower and Use Walker Weight Bearing Status: Weight bearing as tolerated Call your doctor if you observe: Fever of 101 or Higher, Inability to urinate, Inability to have a bowel movement, Shortness of breath, Dizziness, Fainting spells, Swelling in the ankles, Chest pain and Uncontrolled pain Additional Instructions: Discharge to [facility] 06/29/2021, No Home Health Care recommended. Please Follow Up With: Ethan Tubbs When: 1 week. Meaningful Use Info Meaningful Use Diagnoses (Choose all that apply): VTE VTE Anticoag overlap given w/in hospital stay or rx'd at pa?: No Reason overlap not ordered, prescribed, or given for 5 days: Treatment Not Indicated Discharge Plan Admission Admit Date/Time: 06/20/21 14:55 Primary Reason for Your Visit: Debility Attending Provider: Garth Desai Chi Primary Care Provider: Ethan Tubbs Instructions Additional Instructions / Restrictions: Discharge to [facility] 06/29/2021, No Home Health Care recommended. Discharge Orders/Prescriptions Prescriptions: New Eliquis 5 mg Tablet 5 mg PO BID 30 Days Qty: 60 RF: 0 melatonin 10 mg Tablet, Sublingual 10 mg PO QHS Qty: 0 RF: 0 Emollient Combination No.72 [Eucerin Intensive Repair] 1 applic topical QHS Qty: 0 RF: 0 menthol-zinc oxide [Calmoseptine] 0.44-20.6 % Ointment 1 applic topical 0600,2200 Qty: 0 RF: 0 nystatin [Nyamyc] 100,000 unit/gram Powder 1 applic topical 0600,2200 Qty: 0 RF: 0 Continued simvastatin 40 mg tablet 40 mg PO DAILY RF: 0 levothyroxine 50 mcg tablet 50 mcg PO DAILY RF: 0 cholecalciferol (vitamin D3) [Vitamin D3] 50 mcg (2,000 unit) Capsule 50 mcg PO DAILY RF: 0 acetaminophen [Tylenol] 325 mg Tablet 650 mg PO Q4H PRN PRN (Reason: Fever, pain -06/18) Qty: 0 RF: 0 allopurinol 100 mg tablet 100 mg PO BREAKFAST RF: 0 Discontinued Eliquis 2.5 mg tablet 5 mg PO BID RF: 0 Referrals / Follow Up: Ethan Tubbs MD [Primary Care Provider] - Disposition Disposition (needs filled in before D/C Order can be placed): Assisted Living
--- NOTE | 2021-06-27 19:48 | TREXTCAR_ITS ---
Diet 06/21/21 13:29 Diet: Regular - No Added Salt Is pt able to select menu?: Yes Routine Orders/Code Status Code Status: DNRCC-A (No intubation.) Wound(s) coccyx: Wound Type: moisture related opening Therapies Weight Bearing: Weight bearing as tolerated Problem/Diagnosis (1) Debility: Status: Acute (2) Acute kidney injury superimposed on chronic kidney disease: Status: Resolved (3) Chronic kidney disease, stage 3b: Status: Acute (4) DVT (deep venous thrombosis): Status: Acute (5) Pulmonary embolism: Status: Acute (6) Prostate cancer: Status: Acute (7) Gout: Status: Acute (8) COPD (chronic obstructive pulmonary disease): Status: Chronic (9) Vitamin D deficiency: Status: Acute (10) Hypothyroidism: Status: Acute (11) Hyperlipidemia: Status: Acute (12) Edema: Status: Acute (13) Subdural hematoma: Status: Acute Allergies/Procedures Done in Hospital Allergies No Known Allergies Allergy (Verified 06/17/21 11:42) Procedures: None Type of Care/Length of Stay Estimated LOS: More Than 30 Days Type of Care Needed: Senior Care/Assisted Living Rehab Potential: Fair Prognosis: Fair Additional Orders/Day of Discharge Day of Discharge: 06/29/21 Dietary and Speech Recommendations Dietitian Recommendations/Changes: Will liberalize diet to Regular No Added Salt Will order Ensure Compact w/ medpass 4x/day for increased nutrition if consumed. Follow Up Care Please Follow Up With: Ethan Tubbs Discharge Plan Admission Admit Date/Time: 06/20/21 14:55 Primary Reason for Your Visit: Debility Attending Provider: Garth Desai Chi Primary Care Provider: Ethan Tubbs Instructions Additional Instructions / Restrictions: Discharge to [facility] 06/29/2021, No Home Health Care recommended. Discharge Orders/Prescriptions Prescriptions: New Eliquis 5 mg Tablet 5 mg PO BID 30 Days Qty: 60 RF: 0 melatonin 10 mg Tablet, Sublingual 10 mg PO QHS Qty: 0 RF: 0 Emollient Combination No.72 [Eucerin Intensive Repair] 1 applic topical QHS Qty: 0 RF: 0 menthol-zinc oxide [Calmoseptine] 0.44-20.6 % Ointment 1 applic topical 0600,2200 Qty: 0 RF: 0 nystatin [Nyamyc] 100,000 unit/gram Powder 1 applic topical 0600,2200 Qty: 0 RF: 0 Continued simvastatin 40 mg tablet 40 mg PO DAILY RF: 0 levothyroxine 50 mcg tablet 50 mcg PO DAILY RF: 0 cholecalciferol (vitamin D3) [Vitamin D3] 50 mcg (2,000 unit) Capsule 50 mcg PO DAILY RF: 0 acetaminophen [Tylenol] 325 mg Tablet 650 mg PO Q4H PRN PRN (Reason: Fever, pain -06/18) Qty: 0 RF: 0 allopurinol 100 mg tablet 100 mg PO BREAKFAST RF: 0 Discontinued Eliquis 2.5 mg tablet 5 mg PO BID RF: 0 Referrals / Follow Up: Ethan Tubbs MD [Primary Care Provider] - Disposition Disposition (needs filled in before D/C Order can be placed): Assisted Living
[2021-06-27] MEDS: MELATONIN 10 MG TABLET PO (20:50)
[2021-06-28 05:55] LABS: Absolute Lymphocyte Count 1.52 X10^3/uL (0.83-4.51); Basophil# 0.03 X10^3/uL; Basophil% 0.4 % (0-1); Eosinophil# 0.46 X10^3/uL; Eosinophils% 5.7 % (0-5); Hematocrit 29.6 % (40-54); Hemoglobin 9.9 g/dL (13.0-16.5); Lymphocyte # 1.52 X10^3/ul (0.83-4.51); Lymphocyte % 18.9 % (19-41); Mean Corp Hgb Conc 33.4 g/dL (32-36); Mean Corpuscular Hgb 33.2 pg (27.0-32.0); Mean Corpuscular Volume 99.3 fL (80-94); Mean Platelet Vol. 8.9 fl (6.2-12.0); Monocyte# 0.95 X10^3/uL; Monocyte% 11.8 % (0-10); NRBC Flagged by Analyzer 0 % (0-5); Neutrophil # 4.99 X10^3/uL (2.7-7.7); Platelet Count 170 K/mm3 (150-450); RBC Distribution Width CV 14.9 % (11.6-14.6); RBC Distribution Width SD 53.4 fl (35.1-43.9); Red Blood Count 2.98 M/mm3 (4.6-6.2); White Blood Count 8.1 K/mm3 (4.4-11.0)
[2021-06-28] MEDS: Cholecalciferol (VIT D3) 25 MCG TABLET (1,000 UNITS) 50 MCG PO (06:00)
[2021-06-28] MEDS: Polyethylene Glycol 3350 17 GM PACKET PO (06:05)
[2021-06-28] MEDS: Menthol/Lanolin/Calamine/Znox 113 GM Tube 1 APPLIC TOPICAL ×2 (06:06→22:15)
[2021-06-28] MEDS: APIXABAN 5 MG TABLET PO ×2 (06:06→16:15)
[2021-06-28] MEDS: Senna/Docusate Sodium 1 Tablet PO ×2 (06:06→16:15)
[2021-06-28] MEDS: Levothyroxine 50 MCG Tablet PO (06:06)
[2021-06-28] MEDS: Atorvastatin Calcium 20 MG Tablet PO (06:06)
[2021-06-28] MEDS: Nystatin Powder 15gm Bottle 1 APPLIC TOPICAL ×2 (06:07→22:18)
[2021-06-28 06:22] LABS: Anion Gap 7 (5-15); BUN 40 mg/dL (7-18); BUN/Creat Ratio 20.4 RATIO (10-20); Chloride 110 mmol/L (98-107); Creatinine, Serum 1.96 mg/dL (0.70-1.30); EST Glomerular Filtration Rate 35 mL/min (>60); Est Glom Filt Rate - Afr Amer 42 mL/min (>60); Estimated Creatinine Clearance 27.93 ml/min; Glucose 87 mg/dL (74-106); Potassium 4.5 mmol/L (3.5-5.1); Sodium Level 142 mmol/L (136-145)
[2021-06-28] MEDS: Allopurinol 100 MG Tablet PO (07:48)
--- NOTE | 2021-06-28 09:01 | CASEMGMT ---
Addendum entered by Ludivina Weinstein 06/28/21 16:42: After care plan meeting, met with granddaughter and as gddtr was very upset at the outcome of the care plan meeting. Gddtr was under the impression that pt could make his own decisions, and he could return home with the . CHRISTIANO explained to gddtr Dr. Desai deemed pt incompetent and decisions are defaulted to son, Kareem, and he is following IDTs recommendations for DC to [place] with . is also unsafe at home. Gddtr was cursing loudly in TCU lounge, visibly upset about decisions being made. Gddtr became calm and sat with this worker and . SW listened to gddtr express her feelings. Validated feelings and praised her to being an advocate, wanting to have a voice for her grandfather and grandmother, expressed admiration for her compassionate and caring for their wishes. She was raised by her grandparents, thus they have a special piedra, per gddtr. Gddtr inquired if there was anything she could do to intervene or become decision makers for them to bring them home- she states there are several other family members that could assist both at home. Explained the process for guardianship. Dr. Desai to complete expert evaluation that will be submitted with guardianship application. Emailed guardianship application and information to gddtr. Advised since there is POA paperwork already naming a decision maker by the pt when he was competent, the marketing automation analyst strongly considers that person to be the guardian. However, suggested if she can provide written documentation of her intentions, how she will properly care and provide support to them in the home, the marketing automation analyst will review that information - thus creating a schedule and list of people who will provide 24/7 care to the patient and in the home for the foreseeable future. Gddtr expressed understanding and appreciation for this worker's assistance. Followed up with sonKareem. Explained gddtr's inquire about guardianship. Son would like to apply as well. Provided guardianship paperwork to him and explained process. Son to attach original expert eval paperwork to application. Copy will be placed in pt's chart. DIL also provided incompetency letter of , as she is original POA listed, which is why it has defaulted to son. Copy placed in pt's chart. Son and DIL expressed appreciation for this worker's assistance. Received call from son, Kareem, stating gddtr is barricading her and pt's in pt's/ home - locking doors, closing curtains, and not answering any phone calls. Son stated this is getting worse and I don't want to escalate this to the banquet captain, but I might have to. Son stated he cannot move pt into [place] tomorrow without his belongings i.e. clothes and furniture, which is in pt's house. Explained he is the POA of and pt, and this is now impeding pt's DC. Offered to contact HRO to advise further. Son agreed. Spoke with Rosaura, HRO, explained situation. Rosaura stated she knows gddtr, and will call the son to assist at the home. Plan still is to DC to [place] 06/29 by son. No other family member is to DC patient. IDT aware. Original Note: Social Work IDT met with patient, , son, KIMBERLY, gddtr for care plan meeting. Discussed patient's progress in therapy and nursing. Pt progressing well. Explained Medicare benefit. Encouraged to contact secondary insurance to ensure copay coverage. The goal is for pt to DC to [facility] 06/29. SW contacted [place] this date to confirm DC. Family to transport pt. Requested FWW - referral made to [facility]. No HHC recommended at DC. Plan: DC to [facility] 06/29, FWW Ludivina Weinstein, WALL MIRROR DEPARTMENT SUPERVISOR SHMUEL
[2021-06-28 16:13] VITALS: BP 133/73; PULSE 75; RESP 16; TEMP 36.5; O2SAT 97
[2021-06-28 22:00] VITALS: PULSE 76; RESP 16; O2SAT 96
[2021-06-28] MEDS: MELATONIN 10 MG TABLET PO (22:17)
[2021-06-29] MEDS: APIXABAN 5 MG TABLET PO (05:45)
[2021-06-29] MEDS: Atorvastatin Calcium 20 MG Tablet PO (05:45)
[2021-06-29] MEDS: Levothyroxine 50 MCG Tablet PO (05:46)
[2021-06-29] MEDS: Menthol/Lanolin/Calamine/Znox 113 GM Tube 1 APPLIC TOPICAL (05:46)
[2021-06-29] MEDS: Nystatin Powder 15gm Bottle 1 APPLIC TOPICAL (05:46)
[2021-06-29] MEDS: Cholecalciferol (VIT D3) 25 MCG TABLET (1,000 UNITS) 50 MCG PO (05:46)
[2021-06-29] MEDS: Senna/Docusate Sodium 1 Tablet PO (05:46)
[2021-06-29] MEDS: Allopurinol 100 MG Tablet PO (08:35)
[2021-06-29 10:00] VITALS: PULSE 66; RESP 18; O2SAT 97
--- NOTE | 2021-06-29 12:58 | NURSING ---
Report called to Lyudmila herrera [facility] in [place]
--- NOTE | 2021-06-29 13:00 | NURSING ---
pt discharged with son Kareem, who will take him to [facility] in [place]
--- NOTE | 2021-07-03 07:43 | MDS.RN ---
Information for the mds was obtained from review of the clinical record, interview of resident, staff, and direct observation of resident's care.
== END 2021-06-29 13:00 | disposition home or self-care (01) | DRG 176 ==
PROVIDERS: Admitting Provider Family Medicine Geriatric Medicine; PCP Family Medicine; Referring Provider Family Medicine Geriatric Medicine; Visit Provider Family Medicine Geriatric Medicine
DX: I26.99 Other pulmonary embolism without acute cor pulmonale (principal); I82.401 Acute embolism and thrombosis of unspecified deep veins of right lower extremity; Z23 Encounter for immunization; F01.50 Vascular dementia, unspecified severity, without behavioral disturbance, psychotic disturbance, mood disturbance, and anxiety; M10.9 Gout, unspecified; E78.5 Hyperlipidemia, unspecified; E03.9 Hypothyroidism, unspecified; I48.0 Paroxysmal atrial fibrillation; I12.9 Hypertensive chronic kidney disease with stage 1 through stage 4 chronic kidney disease, or unspecified chronic kidney disease; E55.9 Vitamin D deficiency, unspecified; B35.4 Tinea corporis; N18.32 Chronic kidney disease, stage 3b; J44.9 Chronic obstructive pulmonary disease, unspecified; Z87.891 Personal history of nicotine dependence; Z79.01 Long term (current) use of anticoagulants; Z79.890 Hormone replacement therapy; Z79.899 Other long term (current) drug therapy; Z95.0 Presence of cardiac pacemaker
CPT/HCPCS: 36415; 80048; 85025; 87426; 90732; 97110; 97116; 97162; 97166; 97530; 97535; 97802; G0008; G0009; 90686

== ENCOUNTER 2021-08-08 11:07 | Observation (INO) | payer MEDICARE, OTHER, SELFPAY ==
[2021-08-08] VITALS (7 sets, daily range): BP systolic 101–115; BP diastolic 60–75; PULSE 69–73; RESP 16–20; TEMP 36.4–36.5; O2SAT 94–97; BMI 19.5; BMI 19.7
--- NOTE | 2021-08-08 12:26 | CT_ITS ---
STUDY: CT BRAIN WITHOUT CONTRAST REASON FOR EXAM: Male, 86 years old. Fall/injury, right craniotomy from SDH. RADIATION DOSAGE (If Supplied By Facility): CTDIvol = ( 44.99 ) mGy, DLP = ( 829.85 ) mGycm TECHNIQUE: Transaxial CT imaging of the brain was performed without administration of intravenous contrast material. Individualized dose optimization techniques were used for this CT. COMPARISON: Comparison is made with prior study dated 08/19/2019. FINDINGS: Normal soft tissue structures. The patient is status post right frontal parietal craniotomy. There is mild cerebral atrophy with widening of the extra-axial spaces and ventricular dilatation. There are areas of decreased attenuation within the white matter tracts of the supratentorial brain, consistent with microvascular disease changes. Stable focal area of encephalomalacia in the superior aspect of the left frontal bone. There are small punctate calcifications of the basal ganglia which are seen in the aging brain as a normal variant. Normal brainstem. Normal cerebellum. There is no intracranial hemorrhage. There are no findings of an acute ischemic infarction. Atherosclerotic calcification of the vertebral arteries and cavernous portions of the internal carotid arteries bilaterally. Normal visualized paranasal sinuses. CT/Brain/Head without Contrast IMPRESSION: Chronic involutional changes of the brain. Stable examination. Electronically Signed: Avni Estevez MD at 13:14 EST , Service support ,
--- NOTE | 2021-08-08 12:27 | EX.ED.DYSGE1 ---
HPI <Dr. 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 He apparently was admitted there for about 2 weeks, she states there were family dynamics where some family members wanted him put in a jail for his dementia although she states prior to that he was driving and functionally doing well. While in the jail he started having a downward decline mentally with regards to his dementia shortly after being there, and has been worse ever since although he has been home for about the past week. Granddaughter states no one offered for her to care for him initially, she took him home to care for him because he was not doing well the jail and she and his prefer that he not be there. She states he has been lying in bed the vast majority of the time since he has been home, but he did have 2 relatively minor falls that were unwitnessed but one of them resulted in some bruising and pain to his right lower rib cage, the one last night that he had resulted in a rug burn/abrasion to his head but nothing else major. Patient denies having a headache or pain anywhere until he moves then he has it in his right lower ribs. [facility] <Dr. Ayaan Howard MD - Last Filed: 08/08/21 15:54> [facility] Medical History Atrial flutter with controlled response Dementia Former smoker History of complete heart block History of CVA (cerebrovascular accident) History of DVT (deep vein thrombosis) History of pulmonary embolism History of subdural hematoma Hyperlipidemia Hypertension Nonrheumatic aortic (valve) stenosis with insufficiency Paroxysmal atrial fibrillation Paroxysmal ventricular tachycardia Pulmonary hypertension Home Medications cholecalciferol (vitamin D3) [Vitamin D3] 50 mcg PO DAILY 06/17/21 [History Last Taken 06/16/21] levothyroxine 50 mcg PO DAILY 06/17/21 [History Last Taken 06/16/21] simvastatin 40 mg PO DAILY 06/17/21 [History Last Taken 06/16/21] acetaminophen [Tylenol] 650 mg PO Q4H PRN PRN #0 tab 06/20/21 [Rx Last Taken Unknown] allopurinol 100 mg PO BREAKFAST 06/20/21 [History Last Taken Unknown] Emollient Combination No.72 [Eucerin Intensive Repair] 1 applic TOPICAL QHS #0 06/27/21 [Rx Last Taken Unknown] apixaban [Eliquis] 5 mg PO BID 30 Days #60 tab 06/27/21 [Rx Last Taken Unknown] melatonin 10 mg PO QHS #0 tab 06/27/21 [Rx Last Taken Unknown] menthol-zinc oxide [Calmoseptine] 1 applic TOPICAL 0600,2200 #0 g 06/27/21 [Rx Last Taken Unknown] nystatin [Nyamyc] 1 applic TOPICAL 0600,2200 #0 g 06/27/21 [Rx Last Taken Unknown] Allergy/AdvReac Type Severity Reaction Status Date / Time No Known Allergies Allergy Verified 08/08/21 11:30 Family History Mother , Age 51 from Sarcoidosis Sarcoidosis Father , age 79 CVA, CHF CVA (cerebral vascular accident) Congestive heart failure Sister , respiratory failure Respiratory failure Surgical History Cardiac pacemaker in situ History of open reduction and internal fixation (ORIF) procedure S/P insertion of IVC (inferior vena caval) filter Social History household members: spouse Smoking Status: Former smoker alcohol intake: never substance use type: does not use EXAM <Dr. Ayaan Howard MD - Last Filed: 08/08/21 15:54> Physical Exam Const Vital Signs: 08/08/21 11:19 08/08/21 13:55 08/08/21 16:42 Temperature 97.7 F L Temperature Source Axillary Pulse Rate 70 70 70 Respiratory Rate 18 17 16 Respiratory Effort Normal Non-Labored Respiratory Depth Normal Respiratory Pattern Normal Blood Pressure 102/75 101/60 102/64 Blood Pressure Mean 84 73 76 Pulse Ox 97 96 Oxygen Delivery Method Room Air Positive well nourished and well developed General Appearance ED: well developed and NAD HEENT Reports TM's clear and nasal mucous membranes and turbinates normal atraumatic Face and Sinus: Negative for facial tenderness Tympanic Membrane ED: Yes TM's clear Eyes PERRL and EOMs intact bilaterally Visual Acuity: other Other Details: no entrapment or pain with extraocular movements Neck full ROM and supple General: Negative for tenderness Chest Wall Chest Narrative: Tenderness right lower and lateral ribs with ecchymosis that appears to be aging there, yellowish, no crepitance or focal tenderness, no flail, no deformity. Tenderness does not progress posteriorly. Equal chest rise bilaterally, trachea midline. Chest: symmetrical chest wall rise and tenderness; Negative for crepitus Resp normal respiratory effort and clear to auscultation bilaterally Percussion: other equal BS bilat Cardio no murmurs Rate: regular rate Rhythm: regular rhythm GI normal to inspection, nondistended, normoactive bowel sounds, soft to palpation and non-tender Back/Spine normal ROM Cervical Spine: Negative for cervical spine tenderness Thoracic Spine / Upper Back: Negative for thoracic spinal tenderness Lumbar Spine / Lower Back: Negative for lumbar spinal tenderness Extremity normal to inspection and full ROM Extremity Narrative: Full range of motion throughout all 4 extremities without pain or limitation. General Extremety ED: Negative for tenderness Neuro CN's II-XII intact bilaterally, moves all extremities, no focal motor deficits and no sensory deficits noted Neuro Narrative: Can lift each leg without assistance and hold for 5 seconds Reddy Coma Scale: document GCS findings Spontaneous Obeys Commands Oriented 15 Sensorium / Orientation: awake, alert, oriented to person, oriented to place and orientation impaired Psych mental status grossly normal and thought process normal Skin no wounds Skin Narrative: Ecchymoses to right lower anterolateral rib cage/flank, no Back Odell sign or Brandywine sign. Multiple ecchymoses both upper extremities mostly the forearms which are nontender. Lesions: no lesions Rashes: no rashes <Dr. Bill Mchugh MD - Last Filed: 08/08/21 18:35> Physical Exam Const Vital Signs: 08/08/21 11:19 08/08/21 13:55 08/08/21 16:42 Temperature 97.7 F L Temperature Source Axillary Pulse Rate 70 70 70 Respiratory Rate 18 17 16 Respiratory Effort Normal Non-Labored Respiratory Depth Normal Respiratory Pattern Normal Blood Pressure 102/75 101/60 102/64 Blood Pressure Mean 84 73 76 Pulse Ox 97 96 Oxygen Delivery Method Room Air [facility] <Dr. Ayaan Howard MD - Last Filed: 08/08/21 15:54> [facility] Narrative Medical decision making narrative: Labs were noted, patient does have acute on chronic renal sufficiency probably due to dehydration especially given the prerenal azotemia he has. He was given IV fluids here over several hours. His EKG is paced shows no acute injury, his troponin is slightly abnormal probably due to the renal insufficiency. X-rays show fracture of one of his ribs on the right explaining his pain from his injury, his CT head was unremarkable. He was given a half Patton tablet, and on reevaluation was doing well without any pain, keenly alert. Discussed with the patient's PCP, who already had plans on having hospice consult, however with family dynamics the personnel were turned away in the past. I had a long discussion with Kareem, the patient's son and healthcare power of insurance attorney who currently lives in [place]. He is agreeable with a hospice evaluation. He also agrees with DNR comfort care only if he qualifies for hospice, DNR Comfort Care arrest if not. He states this is in the patient's living will and it is what he wanted, was at least to be CCA. I discussed all this with the granddaughter, she is amenable to all of this. If hospice agrees to take him and is okay with allowing him to go home, then we will discharge him home with the granddaughter. Still awaiting urinalysis to see if there is infection contributing to the patient's generalized weakness which has been present for weeks. Lab Data Attestation: I reviewed the patient's lab results. Labs: Laboratory Results - last 24 hr 08/08/21 08/08/21 12:20 12:20 WBC 6.5 RBC 4.27 L Hgb 13.6 Hct 41.6 MCV 97.4 H MCH 31.9 MCHC 32.7 RDW Std Deviation 57.9 H RDW Coeff of Smith 16.6 H Plt Count 201 MPV 9.6 Immature Gran % (Auto) 0.500 Neut % (Auto) 59.7 Lymph % (Auto) 26.4 [place] % (Auto) 8.8 Eos % (Auto) 3.8 Baso % (Auto) 0.8 Absolute Neuts (auto) 3.9 Absolute Lymphs (auto) 1.72 Nucleated RBC % 0 Sodium 145 Potassium 3.9 Chloride 117 H Carbon Dioxide 19.0 L Anion Gap 9 BUN 61 H Creatinine 2.81 H Estim Creat Clear Calc 17.51 Est GFR (MDRD) Af Amer 28 L Est GFR (MDRD) Non-Af 23 L BUN/Creatinine Ratio 21.7 H Glucose 100 Calcium 11.4 H Troponin I High Sens 94 H Radiography Diagnostic Testing: Clinical Impression(s) from Imaging Studies Brain CT 08/08/21 12:26 IMPRESSION: Chronic involutional changes of the brain. Stable examination. Electronically Signed: Avni Estevez MD at 13:14 EST , Service support , Ribs w/Chest X-Ray 08/08/21 13:00 IMPRESSION: RIBS: Nondisplaced fracture of the right fourth rib anterolaterally. CHEST: No acute abnormality is seen. Electronically Signed: Avni Estevez MD at 13:23 EST , Service support , Rhythm Strip Rhythm Strip: paced Rate: 70 Ectopy: None EKG Initial EKG: Attestation: I personally reviewed and interpreted this EKG as follows: Interpretation: No Acute Injury Pattern and Paced <Dr. Bill Mchugh MD - Last Filed: 08/08/21 18:35> MDM MDM Narrative Medical decision making narrative: Patient was seen by hospice patient was excepted. The POA [place] of [place]. Because paperwork cannot be completed the licensed tax consultant for the emergency department for me that he will need to be brought into the hospital observation status until paperwork is completed since he does not qualify for inpatient hospice. The hospitalist was contacted made aware. He accepted patient. Lab Data Labs: Laboratory Results - last 24 hr 08/08/21 08/08/21 12:20 12:20 WBC 6.5 RBC 4.27 L Hgb 13.6 Hct 41.6 MCV 97.4 H MCH 31.9 MCHC 32.7 RDW Std Deviation 57.9 H RDW Coeff of Smith 16.6 H Plt Count 201 MPV 9.6 Immature Gran % (Auto) 0.500 Neut % (Auto) 59.7 Lymph % (Auto) 26.4 [place] % (Auto) 8.8 Eos % (Auto) 3.8 Baso % (Auto) 0.8 Absolute Neuts (auto) 3.9 Absolute Lymphs (auto) 1.72 Nucleated RBC % 0 Sodium 145 Potassium 3.9 Chloride 117 H Carbon Dioxide 19.0 L Anion Gap 9 BUN 61 H Creatinine 2.81 H Estim Creat Clear Calc 17.51 Est GFR (MDRD) Af Amer 28 L Est GFR (MDRD) Non-Af 23 L BUN/Creatinine Ratio 21.7 H Glucose 100 Calcium 11.4 H Troponin I High Sens 94 H Radiography Diagnostic Testing: Clinical Impression(s) from Imaging Studies Brain CT 08/08/21 12:26 IMPRESSION: Chronic involutional changes of the brain. Stable examination. Electronically Signed: Avni Estevez MD at 13:14 EST , Service support , Ribs w/Chest X-Ray 08/08/21 13:00 IMPRESSION: RIBS: Nondisplaced fracture of the right fourth rib anterolaterally. CHEST: No acute abnormality is seen. Electronically Signed: Avni Estevez MD at 13:23 EST , Service support , Discharge Plan Triage Chief Complaint: Fall ED Provider: Ayaan Howard Dx/Rx/DC Orders Clinical Impression: Acute dehydration, Acute on chronic renal insufficiency, Dementia, Fracture of one rib, right side, initial encounter for closed fracture, Falls Prescriptions: No Action simvastatin 40 mg tablet 40 mg PO DAILY RF: 0 levothyroxine 50 mcg tablet 50 mcg PO DAILY RF: 0 cholecalciferol (vitamin D3) [Vitamin D3] 50 mcg (2,000 unit) Capsule 50 mcg PO DAILY RF: 0 acetaminophen [Tylenol] 325 mg Tablet 650 mg PO Q4H PRN PRN (Reason: Fever, pain 1-06/18) Qty: 0 RF: 0 allopurinol 100 mg tablet 100 mg PO BREAKFAST RF: 0 Eliquis 5 mg Tablet 5 mg PO BID 30 Days Qty: 60 RF: 0 melatonin 10 mg Tablet, Sublingual 10 mg PO QHS Qty: 0 RF: 0 Emollient Combination No.72 [Eucerin Intensive Repair] 1 applic topical QHS Qty: 0 RF: 0 menthol-zinc oxide [Calmoseptine] 0.44-20.6 % Ointment 1 applic topical 0600,2200 Qty: 0 RF: 0 nystatin [Nyamyc] 100,000 unit/gram Powder 1 applic topical 0600,2200 Qty: 0 RF: 0 Primary Care Provider: Ethan Tubbs Referrals: Ethan Tubbs MD [Primary Care Provider] - Disposition Disposition: Acute Care Hospital [facility]
[2021-08-08 12:35] LABS: Absolute Lymphocyte Count 1.72 X10^3/uL (0.83-4.51); Absolute Neutrophil Count 3.9 X10^3/uL (2.0-7.7); Basophil# 0.05 X10^3/uL; Basophil% 0.8 % (0-1); Eosinophil# 0.25 X10^3/uL; Eosinophils% 3.8 % (0-5); Hematocrit 41.6 % (40-54); Hemoglobin 13.6 g/dL (13.0-16.5); Lymphocyte # 1.72 X10^3/ul (0.83-4.51); Lymphocyte % 26.4 % (19-41); Mean Corp Hgb Conc 32.7 g/dL (32-36); Mean Corpuscular Hgb 31.9 pg (27.0-32.0); Mean Corpuscular Volume 97.4 fL (80-94); Mean Platelet Vol. 9.6 fl (6.2-12.0); Monocyte# 0.57 X10^3/uL; Monocyte% 8.8 % (0-10); NRBC Flagged by Analyzer 0 % (0-5); Neutrophil # 3.89 X10^3/uL (2.7-7.7); Neutrophil % 59.7 % (47-70); Platelet Count 201 K/mm3 (150-450); RBC Distribution Width CV 16.6 % (11.6-14.6); RBC Distribution Width SD 57.9 fl (35.1-43.9); Red Blood Count 4.27 M/mm3 (4.6-6.2); White Blood Count 6.5 K/mm3 (4.4-11.0)
[2021-08-08] MEDS: 0.9% Normal Saline 1,000 ML 250 ML IV (12:39)
[2021-08-08] MEDS: HYDROcodone Bitartrate/Apap 5/325 Tablet PO (12:39)
[2021-08-08 12:53] LABS: Anion Gap 9 (5-15); BUN 61 mg/dL (7-18); BUN/Creat Ratio 21.7 RATIO (10-20); Calcium,Total 11.4 mg/dL (8.5-10.1); Chloride 117 mmol/L (98-107); Creatinine, Serum 2.81 mg/dL (0.70-1.30); EST Glomerular Filtration Rate 23 mL/min (>60); Est Glom Filt Rate - Afr Amer 28 mL/min (>60); Estimated Creatinine Clearance 17.51 ml/min; Glucose 100 mg/dL (74-106); Potassium 3.9 mmol/L (3.5-5.1); Sodium Level 145 mmol/L (136-145); Troponin-I HS 94 pg/mL (3.0-78.0)
--- NOTE | 2021-08-08 13:00 | RAD_ITS ---
STUDY: X-RAY - UNILATERAL RIBS ( RIGHT ) WITH CHEST REASON FOR EXAM: Male, 86 years old. Pain/injury TECHNIQUE - RIBS: 4 view(s) of the ribs. TECHNIQUE - CHEST: Single PA view of the chest. COMPARISON: Comparison is made with prior chest radiograph dated 06/18/2021. FINDINGS - RIBS: There is a nondisplaced fracture along the anterior lateral aspect of the right fourth rib. FINDINGS - CHEST: The lungs are clear and expanded. There is no demonstrated pleural abnormality. Normal size heart. A left-sided dual-chamber pacemaker is seen. Normal mediastinum and kumar. Normal visualized pulmonary arteries. There is atherosclerotic tortuosity of the aortic arch and descending thoracic aorta. Normal visualized thoracic spine. There is degenerative osteoarthritis of the bilateral shoulders. There is no demonstrated abnormality of the visualized soft tissue structures of the upper abdomen. RAD/Ribs Uni Min 3V w/PA Chest IMPRESSION: RIBS: Nondisplaced fracture of the right fourth rib anterolaterally. CHEST: No acute abnormality is seen. Electronically Signed: Avni Estevez MD at 13:23 EST , Service support ,
--- NOTE | 2021-08-08 14:17 | EKG12_ITS ---
Test Reason : Blood Pressure : / mmHG Vent. Rate : 072 BPM Atrial Rate : 061 BPM P-R Int : 000 ms QRS Dur : 180 ms QT Int : 474 ms P-R-T Axes : 000 266 066 degrees QTc Int : 519 ms Ventricular-paced rhythm with occasional Premature ventricular complexes Abnormal ECG Confirmed by SHAHRIAR LOPEZ, NABIL ([id number]), greeting card editor MICHELLE DAMON ([id number]) on 08/10/2021 8:18:13 AM Referred By: OSMIN Confirmed By:NABIL BESS MD
--- NOTE | 2021-08-08 14:38 | ED.RN ---
plan to refer to hospice. dr camarena to talk to son
--- NOTE | 2021-08-08 18:23 | HP.PCM.HOS_ITS ---
HPI - General General Date of Admission: 08/08/21 Date of Service: 08/08/21 Chief Complaint: Generalized weakness HPI Narrative BENJAMIN MAS, is a 86 M who with past medical history segment for advanced dementia brought to the emergency department by family on account of patient having experienced multiple falls at home. Plan was for patient to have been admitted to hospice however his paperwork could not be completed hence the decision to admit patient. Imaging studies obtained in the ED demonstrated Nondisplaced fracture of the right fourth rib anterolaterally. Admitted to regular nursing floor for further management [facility] Medical History Atrial flutter with controlled response Dementia Former smoker History of complete heart block History of CVA (cerebrovascular accident) History of DVT (deep vein thrombosis) History of pulmonary embolism History of subdural hematoma Hyperlipidemia Hypertension Nonrheumatic aortic (valve) stenosis with insufficiency Paroxysmal atrial fibrillation Paroxysmal ventricular tachycardia Pulmonary hypertension Home Medications cholecalciferol (vitamin D3) [Vitamin D3] 50 mcg PO DAILY 06/17/21 [History Last Taken 06/16/21] levothyroxine 50 mcg PO DAILY 06/17/21 [History Last Taken 06/16/21] simvastatin 40 mg PO DAILY 06/17/21 [History Last Taken 06/16/21] acetaminophen [Tylenol] 650 mg PO Q4H PRN PRN #0 tab 06/20/21 [Rx Last Taken Unknown] allopurinol 100 mg PO BREAKFAST 06/20/21 [History Last Taken Unknown] Emollient Combination No.72 [Eucerin Intensive Repair] 1 applic TOPICAL QHS #0 06/27/21 [Rx Last Taken Unknown] apixaban [Eliquis] 5 mg PO BID 30 Days #60 tab 06/27/21 [Rx Last Taken Unknown] melatonin 10 mg PO QHS #0 tab 06/27/21 [Rx Last Taken Unknown] menthol-zinc oxide [Calmoseptine] 1 applic TOPICAL 0600,2200 #0 g 06/27/21 [Rx Last Taken Unknown] nystatin [Nyamyc] 1 applic TOPICAL 0600,2200 #0 g 06/27/21 [Rx Last Taken Unknown] Allergy/AdvReac Type Severity Reaction Status Date / Time No Known Allergies Allergy Verified 08/08/21 11:30 Family History Mother , Age 51 from Sarcoidosis Sarcoidosis Father , age 79 CVA, CHF CVA (cerebral vascular accident) Congestive heart failure Sister , respiratory failure Respiratory failure Surgical History Cardiac pacemaker in situ History of open reduction and internal fixation (ORIF) procedure S/P insertion of IVC (inferior vena caval) filter Social History household members: spouse Smoking Status: Former smoker alcohol intake: never substance use type: does not use ROS Review of Systems ROS Unobtainable: due to mental condition Vital Signs Vital Signs Vital Signs: 08/08/21 11:19 08/08/21 13:55 08/08/21 16:42 Temperature 97.7 F L Temperature Source Axillary Pulse Rate 70 70 70 Respiratory Rate 18 17 16 Respiratory Effort Normal Non-Labored Respiratory Depth Normal Respiratory Pattern Normal Blood Pressure 102/75 101/60 102/64 Blood Pressure Mean 84 73 76 Pulse Ox 97 96 Oxygen Delivery Method Room Air Weight Weight: 65.6 kg Body Mass Index (BMI) 19.5 Physical Exam Narrative GENERAL: cooperative HEENT: Abrasions right forehead EYES; Anicteric, Normal Conjunctiva NECK; supple, normal thyroid, RESPIRATORY: Diminished to auscultation CARDIOVASCULAR: Regular S1 S2, GI: soft, normoactive bowel sounds, : No Renal angle tenderness; EXTREMITIES: Right lower extremity externally rotated MUSCULOSKELETAL: muscle waisting NEURO: Awake; no lateralizing signs. SKIN: No Rash PSYCH; Flat affect Results Lab / Micro Data Result Diagrams: 08/08/21 12:20 08/08/21 12:20 Labs: Laboratory Results - last 24 hr 08/08/21 12:20: WBC 6.5, RBC 4.27 L, Hgb 13.6, Hct 41.6, MCV 97.4 H, MCH 31.9, MCHC 32.7, RDW Std Deviation 57.9 H, RDW Coeff of Smith 16.6 H, Plt Count 201, MPV 9.6, Immature Gran % (Auto) 0.500, Neut % (Auto) 59.7, Lymph % (Auto) 26.4, [place] % (Auto) 8.8, Eos % (Auto) 3.8, Baso % (Auto) 0.8, Absolute Neuts (auto) 3.9, Absolute Lymphs (auto) 1.72, Nucleated RBC % 0 08/08/21 12:20: Sodium 145, Potassium 3.9, Chloride 117 H, Carbon Dioxide 19.0 L , Anion Gap 9, BUN 61 H, Creatinine 2.81 H, Estim Creat Clear Calc 17.51, Est GFR (MDRD) Af Amer 28 L, Est GFR (MDRD) Non-Af 23 L, BUN/Creatinine Ratio 21.7 H , Glucose 100, Calcium 11.4 H, Troponin I High Sens 94 H Micro: Microbiology 08/08/21 16:45 Nasal Secretion SARS-CoV-2 Antigen (Rapid) - Final Rhythm Strip Rhythm Strip: paced Rate: 70 Ectopy: None Radiology Impression Brain CT 08/08/21 12:26 IMPRESSION: Chronic involutional changes of the brain. Stable examination. Electronically Signed: Avni Estevez MD at 13:14 EST , Service support , Ribs w/Chest X-Ray 08/08/21 13:00 IMPRESSION: RIBS: Nondisplaced fracture of the right fourth rib anterolaterally. CHEST: No acute abnormality is seen. Electronically Signed: Avni Estevez MD at 13:23 EST , Service support , Assessment & Plan Assessment/Plan (1) Falls frequently: PLAN: Patient is an 86-year-old gentleman with history of advanced dementia admitted with multiple falls 1. Physical deconditioning with multiple falls. -Imaging studies studies obtained on admission demonstrated Nondisplaced fracture of the right fourth rib anterolaterally.admitted to regular nursing floor for pain management also requested for PT OT eval and social studies department chair to assist with discharge planning 2. Closed head injury ?CT of the head obtained demonstrated Chronic involutional changes of the brain. 3. History of DVT and PE ?Patient is on Eliquis continued 4. Acute kidney injury on chronic kidney disease stage IIIb- -started on IV fluid with monitoring of electrolytes 5. Anemia - Secondary to chronic disorder monitoring H&H and transfuse if patient becomes symptomatic or hemoglobin falls below 7 6. History of CVA ?With residual right lower extremity weakness 7. Hypertension - Blood pressure controlled, home medications continued with dose adjustment as needed 8. Hypothyroidism - Patient is on levothyroxine home dose continued 9. 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 Persistent A. fib ?Rate controlled on systemic anticoagulation for DVT which should also help prevent strokes 11. Gout ?Patient is on allopurinol 12. Dyslipidemia -Patient is on statin therapy, continued at home dose 13. DVT prophylaxis on Eliquis Advance planning; did discuss with the patient's family regarding advanced directives as well as CODE STATUS. Did explain the various scenarios involved ( FULL CODE, DNR CCA, DNR CCA with no intubation, and DNR CC and what each meant) CODE STATUS was changed to DNR CC in the ED. Order was placed. Time spent on discussion 18 minutes. Charges/Coding Visit Charges OBSV E&M: 97364 Initial observation care L3 Multi Select Codes Hospitalists' Procedures Procedures: 64513 Advncd Care Plan 30 Min
[2021-08-08 19:25] LABS: Bacteria 0 SEEN /hpf (None Seen); Mucous, Urine 0 SEEN /hpf (<or=2+); Red Blood Cells-Urine 0 SEEN /hpf (0-5)
[2021-08-08 19:30] LABS: Color, Urine Yellow (Yellow); Glucose, Dipstick Normal (Normal); Ketone-Dipstick 5 mg/dl (Negative); Leukocyte Esterase-Dipstick 25 /ul (Negative); Nitrite-Dipstick Negative (Negative); Occult Blood-Urine Negative /ul (Negative); Protein-Dipstick 15 mg/dl (Negative); Urine Bilirubin Dipstick Negative (Negative); Urine Clarity Clear (Clear); Urine Urobilinogen Normal (Normal)
[2021-08-08 19:44] LABS: Squamous Epithelial Cells - UA 0-5 SEEN /hpf (0-5); White Blood Cells 0-5 SEEN /hpf (0-5)
[2021-08-08] MEDS: Dextrose 5%/0.9% NaCl 1,000 ML 125 ML IV (20:03)
--- NOTE | 2021-08-08 20:18 | CM.ED ---
CHRISTIANO Note Referral Source: MD Referral Reason: Hospice MD reported that patient's POA is in agreement with hospice referral. MD requested that this designer/writer make referral to Hospice. CHRISTIANO spoke to patient's son and POA, Kareem ([phone]). Kareem is traveling in [place]. He voiced agreement with hospice referral and requested [facility]. CHRISTIANO called Lori at [facility] and made referral. CHRISTIANO faxed referral to [facility]. Lori said that a responsible person has to physically sign the hospice paperwork. Lori said that Kareem could appoint someone to sign as a payroll representative for the POA. CHRISTIANO will updated Kareem, patient's son and POA. CHRISTIANO called Kareem (son/POA) and he reports that he will have his brother, who resides in [place], be the payroll representative of him, as the POA, who signs the paperwork for Hospice. CHRISTIANO spoke to Kailyn, Admission RN for Hospice. She met with patient and he qualifies for Hospice but not the IPU. She said the family does not want SNF. Kailyn said that the plan is discharge home on 08/09/21 with hospice from the acute hospital placement. Kailyn said that the plan discharge is for tomorrow as the brother, from [place], needs to sign placement and they need to schedule home oxygen and home devices for patient. CHRISTIANO updated MD. Kailyn had also updated Jacquelin stanford RN. Plan: Admit to acute. Plan discharge on 08/09/21 with hospice home. Georgie MADERA
--- NOTE | 2021-08-08 22:39 | PCS.PANDOC ---
PANDEMIC DOCUMENTATION INITIATED: Date: 04/24/2021 Time: 190
[2021-08-08] MEDS: APIXABAN 5 MG TABLET PO (22:44)
--- NOTE | 2021-08-08 22:52 | NURSING ---
This RN spoke w/ pt's grand daughter Emmie, verified pt's home medications and gave updates about the patient.
[2021-08-09 00:31] VITALS: BP 109/74; PULSE 69; RESP 16; TEMP 36.5; O2SAT 97
[2021-08-09 03:00] VITALS: PULSE 70
[2021-08-09] MEDS: Dextrose 5%/0.9% NaCl 1,000 ML 125 ML IV (04:02)
[2021-08-09 04:28] VITALS: BP 119/71; PULSE 91; RESP 18; TEMP 36.2; O2SAT 97
[2021-08-09] MEDS: Levothyroxine 50 MCG Tablet PO (06:05)
[2021-08-09 06:56] LABS: Absolute Lymphocyte Count 1.87 X10^3/uL (0.83-4.51); Absolute Neutrophil Count 2.7 X10^3/uL (2.0-7.7); Basophil# 0.03 X10^3/uL; Basophil% 0.5 % (0-1); Eosinophil# 0.42 X10^3/uL; Eosinophils% 7.3 % (0-5); Hematocrit 35.5 % (40-54); Hemoglobin 11.4 g/dL (13.0-16.5); Lymphocyte # 1.87 X10^3/ul (0.83-4.51); Lymphocyte % 32.6 % (19-41); Mean Corp Hgb Conc 32.1 g/dL (32-36); Mean Corpuscular Hgb 31.8 pg (27.0-32.0); Mean Corpuscular Volume 99.2 fL (80-94); Mean Platelet Vol. 9.6 fl (6.2-12.0); Monocyte# 0.64 X10^3/uL; Monocyte% 11.2 % (0-10); NRBC Flagged by Analyzer 0 % (0-5); Neutrophil # 2.74 X10^3/uL (2.7-7.7); Neutrophil % 47.9 % (47-70); Platelet Count 175 K/mm3 (150-450); RBC Distribution Width CV 16.3 % (11.6-14.6); RBC Distribution Width SD 59.2 fl (35.1-43.9); Red Blood Count 3.58 M/mm3 (4.6-6.2); White Blood Count 5.7 K/mm3 (4.4-11.0)
[2021-08-09 07:25] LABS: Anion Gap 7 (5-15); BUN 54 mg/dL (7-18); BUN/Creat Ratio 21.3 RATIO (10-20); Calcium,Total 10.1 mg/dL (8.5-10.1); Chloride 124 mmol/L (98-107); Creatinine, Serum 2.53 mg/dL (0.70-1.30); EST Glomerular Filtration Rate 26 mL/min (>60); Est Glom Filt Rate - Afr Amer 31 mL/min (>60); Estimated Creatinine Clearance 17.96 ml/min; Glucose 122 mg/dL (74-106); Potassium 3.4 mmol/L (3.5-5.1); Sodium Level 148 mmol/L (136-145)
[2021-08-09] MEDS: 0.9% Saline Lock 10 ML Syringe IV (09:03)
[2021-08-09] MEDS: Allopurinol 100 MG Tablet PO (09:03)
[2021-08-09] MEDS: APIXABAN 5 MG TABLET PO (09:04)
[2021-08-09] MEDS: Cholecalciferol (VIT D3) 25 MCG TABLET (1,000 UNITS) 50 MCG PO (09:04)
[2021-08-09] MEDS: Menthol/Lanolin/Calamine/Znox 113 GM Tube 1 APPLIC TOPICAL (09:04)
[2021-08-09] MEDS: Atorvastatin Calcium 20 MG Tablet PO (09:04)
--- NOTE | 2021-08-09 09:11 | CASEMGMT ---
Addendum entered by Oralia Hurt 08/09/21 11:29: Pt is discharged. CHRISTIANO set up a 12:30pm ambulance with [facility]. SW let bedside RN know and gave her number to call report. SW faxed discharge instructions to [facility]. SW called [facility], let Kailyn know the time of pickup. SW called son Donald, let him know time of pickup. No further needs are anticipated. Pt home on hospice with family today. J[place]ICA [place] Addendum entered by Oralia Hurt 08/09/21 10:30: SW spoke w/son Donald, he states family is ready for pt whenever he is discharged. SW confirmed address w/son, he states there are two steps into the home. He would like an ambulance set up for pt to bring him home. SW explained once pt is discharged SW will set up transportation and let him know the time. J[place]berry Addendum entered by Oralia Hurt 08/09/21 09:47: SW did fax updated clinicals to [facility]. J[place]ICA Mayberry Addendum entered by Oralia Hrut 08/09/21 09:30: SW spoke radu/Tory from [facility], they are ready for pt to go home whenever he is discharged. She states that pt's son signed the paperwork w/Kailyn last evening. She states to let [facility] know once the pt is discharged. Also, RN here to call Kailyn with a nurse to nurse report, . JAMAICA Mayberry Original Note: Social Work SW spoke radu/Sonny from [facility], as it SW note from yesterday states that a referral was made and a meeting is to happen today with [facility] and pt's brother Tiffani. Sonny will check in w/cr and let this SW know. CHRISTIANO will send clinical updates shortly JAMAIAC Mayberry
[2021-08-09 09:14] VITALS: BP 120/63; PULSE 52; RESP 16; TEMP 36.4; O2SAT 98
[2021-08-09 09:56] VITALS: O2SAT 98
--- NOTE | 2021-08-09 11:09 | PCM.DC ---
Discharge Instructions Diet Discharge Diet: No restrictions Activity Discharge Activity: Return to Normal Activity Weight Bearing Status: Weight bearing as tolerated Dressing / Incision Call your doctor if you observe: Fever of 101 or Higher, Numbness or Tingling, Shortness of breath, Dizziness, Chest pain, Increased palpitations (irregular heartbeat) and Calf discomfort Follow Up Care Please Follow Up With: Primary care provider When: Within the next two weeks. Test Results: Test results from this visit will be discussed in further detail at your follow-up appointment, if applicable. Discharge Plan Admission Admit Date/Time: 08/08/21 18:24 Primary Reason for Your Visit: Falls Attending Provider: Juan A Barnhart Primary Care Provider: Ethan Tubbs Discharge Orders/Prescriptions Prescriptions: Continued simvastatin 40 mg tablet 40 mg PO DAILY RF: 0 levothyroxine 50 mcg tablet 50 mcg PO DAILY RF: 0 cholecalciferol (vitamin D3) [Vitamin D3] 50 mcg (2,000 unit) Capsule 50 mcg PO DAILY RF: 0 acetaminophen [Tylenol] 325 mg Tablet 650 mg PO Q4H PRN PRN (Reason: Fever, pain 1-06/18) Qty: 0 RF: 0 allopurinol 100 mg tablet 100 mg PO BREAKFAST RF: 0 Eliquis 5 mg Tablet 5 mg PO BID 30 Days Qty: 60 RF: 0 melatonin 10 mg Tablet, Sublingual 10 mg PO QHS Qty: 0 RF: 0 Emollient Combination No.72 [Eucerin Intensive Repair] 1 applic topical QHS Qty: 0 RF: 0 menthol-zinc oxide [Calmoseptine] 0.44-20.6 % Ointment 1 applic topical 0600,2200 Qty: 0 RF: 0 nystatin [Nyamyc] 100,000 unit/gram Powder 1 applic topical 0600,2200 Qty: 0 RF: 0 Referrals / Follow Up: Ethan Tubbs MD [Primary Care Provider] - Within 2 Weeks Disposition Disposition (needs filled in before D/C Order can be placed): Hospice in Home
--- NOTE | 2021-08-09 12:24 | NURSING ---
1100 This RN called report to Kailyn admission nurse for hospice [phone] updated on transport time of 1230
--- NOTE | 2021-08-09 14:04 | PCM.DC.SUM ---
Documented by User: Ketan VEE 08/09/21 14:12 Providers Date of Admission: 08/08/21 Primary Care Physician: Dr. Ethan Tubbs MD Reason For Visit: FAILURE TO THRIVE Diagnosis Discharge Diagnosis (1) Falls frequently: Status: Acute Code(s): R29.6 - Repeated falls Medications at Discharge Home Medications cholecalciferol (vitamin D3) [Vitamin D3] 50 mcg PO DAILY 06/17/21 levothyroxine 50 mcg PO DAILY 06/17/21 simvastatin 40 mg PO DAILY 06/17/21 acetaminophen [Tylenol] 650 mg PO Q4H PRN PRN #0 tab 06/20/21 allopurinol 100 mg PO BREAKFAST 06/20/21 Eliquis 5 mg PO BID 30 Days #60 tab 06/27/21 Emollient Combination No.72 [Eucerin Intensive Repair] 1 applic TOPICAL QHS #0 06/27/21 melatonin 10 mg PO QHS #0 tab 06/27/21 menthol-zinc oxide [Calmoseptine] 1 applic TOPICAL 0600,2200 #0 g 06/27/21 nystatin [Nyamyc] 1 applic TOPICAL 0600,2200 #0 g 06/27/21 Hospital Course Summary of Care Provided Minutes Spent on Discharge: 35 Hospital Course: Patient is an 86-year-old male who was admitted to the hospital on 08/08/2021 after experiencing multiple falls at the home and with a history of advanced dementia. Imaging studies obtained in the ED demonstrated a nondisplaced fracture of the right fourth rib anterolaterally. Prior to suffering the fall it was already previously established that patient was going to be moved to hospice care for chronic conditions. Patient was admitted for this process to be expedited and completed. Patient was discharged on 08/09/2021 to in home hospice. All home medications were continued and no changes were made. Patient seen by Ketan Pathak PA-C, under the supervision of Dr. Barnhart. Physical Exam Narrative Patient is an 86-year-old male lying in bed, alert and oriented to self. Patient unable to provide much insight into his current condition as he is chronically confused due to dementia. Const alert Exam Limitations: altered mental status HEENT normocephalic, head/scalp atraumatic and hearing grossly normal bilaterally Eyes PERRL, EOMs intact bilaterally and conjunctivae normal Neck no lymphadenopathy, supple and no carotid bruits Resp normal respiratory effort, no retractions, no use of accessory muscles and clear to auscultation bilaterally Cardio regular rate, regular rhythm, no murmurs and no JVD GI normal to inspection, nondistended, normoactive bowel sounds, soft to palpation and non-tender Extremity normal to inspection, full ROM and no clubbing, cyanosis or edema Skin no rashes or lesions noted, no wounds and skin turgor normal Neuro Neuro Narrative: Unable to assess due to chronic patient confusion. Psych Psych Narrative: Unable to assess due to chronic patient confusion. Weight / BMI Weight Weight: 133 lb 9.602 oz Body Mass Index (BMI) 19.7 ABG / Lab / Microbiology Data Result Diagrams: 08/09/21 06:25 08/09/21 06:25 Laboratory: Laboratory Results - last 24 hr 08/08/21 19:20: Urine Color Yellow, Urine Clarity Clear, Urine pH 5.0, Ur Specific [place] 1.020, Urine Protein 15 H, Urine Glucose (UA) Normal, Urine Ketones 5 H, Urine Occult Blood Negative, Urine Nitrite Negative, Urine Bilirubin Negative, Urine Urobilinogen Normal, Ur Leukocyte Esterase 25 H, Urine RBC 0 SEEN, Urine WBC 0-5 SEEN, Ur Squamous Epith Cells 0-5 SEEN, Urine Bacteria 0 SEEN, Urine Mucus 0 SEEN 08/09/21 06:25: WBC 5.7, RBC 3.58 L, Hgb 11.4 L, Hct 35.5 L, MCV 99.2 H, MCH 31.8, MCHC 32.1, RDW Std Deviation 59.2 H, RDW Coeff of Smith 16.3 H, Plt Count 175, MPV 9.6, Immature Gran % (Auto) 0.500, Neut % (Auto) 47.9, Lymph % (Auto) 32.6, [place] % (Auto) 11.2 H, Eos % (Auto) 7.3 H, Baso % (Auto) 0.5, Absolute Neuts (auto) 2.7, Absolute Lymphs (auto) 1.87, Nucleated RBC % 0 08/09/21 06:25: Sodium 148 H, Potassium 3.4 L, Chloride 124 H, Carbon Dioxide 17.0 L, Anion Gap 7, BUN 54 H, Creatinine 2.53 H, Estim Creat Clear Calc 17.96, Est GFR (MDRD) Af Amer 31 L, Est GFR (MDRD) Non-Af 26 L, BUN/Creatinine Ratio 21.3 H, Glucose 122 H, Calcium 10.1, Magnesium 2.0 Microbiology: Microbiology 08/08/21 16:45 Nasal Secretion SARS-CoV-2 Antigen (Rapid) - Final D/C Instructions Discharge Diet: No restrictions Weight Bearing Status: Weight bearing as tolerated Call your doctor if you observe: Fever of 101 or Higher, Numbness or Tingling, Shortness of breath, Dizziness, Chest pain, Increased palpitations (irregular heartbeat) and Calf discomfort Please Follow Up With: Primary care provider When: Within the next two weeks. Meaningful Use Info Meaningful Use Diagnoses (Choose all that apply): None applicable Discharge Plan Admission Admit Date/Time: 08/08/21 18:24 Primary Reason for Your Visit: Falls Attending Provider: Juan A Barnhart Primary Care Provider: Ethan Tubbs Discharge Orders/Prescriptions Prescriptions: Continued simvastatin 40 mg tablet 40 mg PO DAILY RF: 0 levothyroxine 50 mcg tablet 50 mcg PO DAILY RF: 0 cholecalciferol (vitamin D3) [Vitamin D3] 50 mcg (2,000 unit) Capsule 50 mcg PO DAILY RF: 0 acetaminophen [Tylenol] 325 mg Tablet 650 mg PO Q4H PRN PRN (Reason: Fever, pain 1-06/18) Qty: 0 RF: 0 allopurinol 100 mg tablet 100 mg PO BREAKFAST RF: 0 Eliquis 5 mg Tablet 5 mg PO BID 30 Days Qty: 60 RF: 0 melatonin 10 mg Tablet, Sublingual 10 mg PO QHS Qty: 0 RF: 0 Emollient Combination No.72 [Eucerin Intensive Repair] 1 applic topical QHS Qty: 0 RF: 0 menthol-zinc oxide [Calmoseptine] 0.44-20.6 % Ointment 1 applic topical 0600,2200 Qty: 0 RF: 0 nystatin [Nyamyc] 100,000 unit/gram Powder 1 applic topical 0600,2200 Qty: 0 RF: 0 Referrals / Follow Up: Ethan Tubbs MD [Primary Care Provider] - Within 2 Weeks Disposition Disposition (needs filled in before D/C Order can be placed): Hospice in Home Documented by User: Dr. Juan A Barnhart MD 08/09/21 14:31 Providers Date of Admission: 08/08/21 Reason For Visit: FAILURE TO THRIVE Medications at Discharge Home Medications cholecalciferol (vitamin D3) [Vitamin D3] 50 mcg PO DAILY 06/17/21 levothyroxine 50 mcg PO DAILY 06/17/21 simvastatin 40 mg PO DAILY 06/17/21 acetaminophen [Tylenol] 650 mg PO Q4H PRN PRN #0 tab 06/20/21 allopurinol 100 mg PO BREAKFAST 06/20/21 Eliquis 5 mg PO BID 30 Days #60 tab 06/27/21 Emollient Combination No.72 [Eucerin Intensive Repair] 1 applic TOPICAL QHS #0 06/27/21 melatonin 10 mg PO QHS #0 tab 06/27/21 menthol-zinc oxide [Calmoseptine] 1 applic TOPICAL 0600,2200 #0 g 06/27/21 nystatin [Nyamyc] 1 applic TOPICAL 0600,2200 #0 g 06/27/21 Hospital Course Operations None Summary of Care Provided Hospital Course: This patient was seen in conjunction with Ketan Pathak PA-C. I have independently interviewed and examined the patient and reviewed pertinent historical, laboratory, and other data. Please refer to Ketan Pathak PA-C's note for details of this patient's presentation, findings, and recommendations. I have reviewed Ketan Pathak PA-C's note and concur with documented findings. In brief, patient is an 86-year-old gentleman with advanced dementia admitted with adult failure to thrive and multiple falls. Patient was admitted to regular nursing floor arrangement made for patient to be discharged with hospice Hospital course: As documented above ABG / Lab / Microbiology Data Result Diagrams: 08/09/21 06:25 08/09/21 06:25 Discharge Plan Admission Admit Date/Time: 08/08/21 18:24 Primary Reason for Your Visit: Falls Attending Provider: Juan A Barnhart Primary Care Provider: Ethan Tubbs Discharge Orders/Prescriptions Prescriptions: Continued simvastatin 40 mg tablet 40 mg PO DAILY RF: 0 levothyroxine 50 mcg tablet 50 mcg PO DAILY RF: 0 cholecalciferol (vitamin D3) [Vitamin D3] 50 mcg (2,000 unit) Capsule 50 mcg PO DAILY RF: 0 acetaminophen [Tylenol] 325 mg Tablet 650 mg PO Q4H PRN PRN (Reason: Fever, pain 1-06/18) Qty: 0 RF: 0 allopurinol 100 mg tablet 100 mg PO BREAKFAST RF: 0 Eliquis 5 mg Tablet 5 mg PO BID 30 Days Qty: 60 RF: 0 melatonin 10 mg Tablet, Sublingual 10 mg PO QHS Qty: 0 RF: 0 Emollient Combination No.72 [Eucerin Intensive Repair] 1 applic topical QHS Qty: 0 RF: 0 menthol-zinc oxide [Calmoseptine] 0.44-20.6 % Ointment 1 applic topical 0600,2200 Qty: 0 RF: 0 nystatin [Nyamyc] 100,000 unit/gram Powder 1 applic topical 0600,2200 Qty: 0 RF: 0 Referrals / Follow Up: Ethan Tubbs MD [Primary Care Provider] - Within 2 Weeks Disposition Disposition (needs filled in before D/C Order can be placed): Hospice in Home Charges/Coding Visit Charges OBSV E&M: 87330 Observation care discharge Hospital Course Operations None
== END 2021-08-09 11:11 | disposition hospice, home (50) ==
LOC: ED 18:35 → PCU 18:47
PROVIDERS: Admitting Provider Internal Medicine; Emergency Provider Emergency Medicine; PCP Family Medicine; Visit Provider Internal Medicine
DX: R62.7 Adult failure to thrive (principal); R29.6 Repeated falls; E86.0 Dehydration; F03.90 Unspecified dementia, unspecified severity, without behavioral disturbance, psychotic disturbance, mood disturbance, and anxiety; M10.9 Gout, unspecified; S22.31XA Fracture of one rib, right side, initial encounter for closed fracture; S00.81XA Abrasion of other part of head, initial encounter; W19.XXXA Unspecified fall, initial encounter; I27.20 Pulmonary hypertension, unspecified; I12.9 Hypertensive chronic kidney disease with stage 1 through stage 4 chronic kidney disease, or unspecified chronic kidney disease; N18.32 Chronic kidney disease, stage 3b; E78.5 Hyperlipidemia, unspecified; I48.0 Paroxysmal atrial fibrillation; S09.90XA Unspecified injury of head, initial encounter; D63.8 Anemia in other chronic diseases classified elsewhere; E03.9 Hypothyroidism, unspecified; Z79.890 Hormone replacement therapy; Y93.9 Activity, unspecified; Y92.9 Unspecified place or not applicable; Y99.9 Unspecified external cause status; Z87.891 Personal history of nicotine dependence; Z86.718 Personal history of other venous thrombosis and embolism; Z86.73 Personal history of transient ischemic attack (TIA), and cerebral infarction without residual deficits; Z79.899 Other long term (current) drug therapy; Z79.01 Long term (current) use of anticoagulants; Z86.711 Personal history of pulmonary embolism; Z95.0 Presence of cardiac pacemaker; Z68.1 Body mass index [BMI] 19.9 or less, adult
CPT/HCPCS: 36415; 70450; 71101; 80048; 81001; 83735; 84484; 85025; 87426; 93005; 96360; 96361; 99218; 99285; A4216; G0378